=== PATIENT | female | born 1965 | race Caucasian/White ===

== ENCOUNTER 2018-10-08 21:34 | Emergency (ER) | payer BC ==
--- NOTE | 2018-10-08 22:32 | EDM.PDOC ---
ED HPI GENERAL MEDICAL PROBLEM - General Chief Complaint: Chest Pain Stated Complaint: REACTION TO MEDS Time Seen by Provider: 10/08/18 22:05 Source of Information: Reports: Patient, EMS, Family History Limitations: Reports: No Limitations - History of Present Illness INITIAL COMMENTS - FREE TEXT/NARRATIVE: 53-year-old female with metastatic ovarian cancer, was receiving chemotherapy today when she had some type of reaction with bilateral arm pain, shortness of breath, and weakness. She seemed to respond to Benadryl. Tonight after she got home she redeveloped left arm pain and some slight chest pressure, with slight shortness of breath. The symptoms were just over 3 hours ago. She repeated the Benadryl and it didn't seem to help so she called the ambulance. In route they gave her 3 nitroglycerin which didn't help. She had some nausea so they gave her 4 mg of Zofran IV, and not till she received IV Dilaudid and the pain started to improve. She feels like it hurts to move her arm but I cannot reproduce the pain. A preoperative stress test was negative last year. She has no history of cardiac problems. Onset: Sudden Duration: Hour(s): (Within the last few hours) Location: Reports: Upper Extremity, Left Quality: Reports: Ache, Pressure, Throbbing Worsens with: Reports: Movement Associated Symptoms: Reports: Chest Pain, Nausea/Vomiting, Shortness of Breath. 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 GROUP SUPERVISOR: Reports: Nitroglycerin, Other (see below) Other Treatments INTELLIGENCE GROUP SUPERVISOR: zofran dilaudid Left Shoulder Pain Score (Numeric/FACES): 3 - Related Data Allergies Allergy/AdvReac Type Severity Reaction Status Date / Time codeine AdvReac Nausea Verified 10/08/18 21:49 Home Meds: Home Meds Biotin 2.5 mg PO BID 07/17/13 [History] Calcium Citrate 250 mg PO DAILY 07/17/13 [History] Cyanocobalamin (Vitamin B-12) [Vitamin B-12] 1,000 mcg SL DAILY 07/17/13 [ History] Multivitamin with Minerals [Multiple Vitamin] 1 tab PO BID 07/17/13 [History] Vitamin B Complex [B Complex] 1 each PO DAILY 07/17/13 [History] clonazePAM [Clonazepam] 1.5 - 2 mg PO BEDTIME 07/17/13 [History] Acetaminophen [Acetaminophen Extra Strength] 1,000 mg PO BEDTIME 06/10/14 [ History] traMADol [Ultram] 50 mg PO Q6H PRN 06/10/14 [History] Ferrous Fumarate [Ferrocite] 324 mg PO DAILY 02/27/17 [History] Gabapentin [Neurontin] 300 mg PO BEDTIME 10/08/18 [History] Ondansetron [Zofran ODT] 4 mg PO Q6H PRN 10/08/18 [History] Prochlorperazine [Compazine] 5 mg PO Q6H 10/08/18 [History] oxyCODONE 5 mg PO Q4HR 10/08/18 [History] Past Medical History Cardiovascular History: Reports: Other (See Below) Other Cardiovascular History: stress test December 2017 Gastrointestinal History: Reports: Cholelithiasis Genitourinary History: Reports: UTI, Recurrent 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: Musculoskeletal History: Reports: Arthritis, Fracture Neurological History: Reports: Concussion Psychiatric History: Reports: Depression Hematologic History: Reports: Anemia, B12 Deficiency, Blood Transfusion(s), Iron Deficiency Oncologic (Cancer) History: Reports: Ovarian, Other (See Below) Other Oncologic History: 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 13 lb tumor removed Musculoskeletal Surgical History: Reports: Hip Replacement, Knee Replacement Other Musculoskeletal Surgeries/Procedures:: left hip. right knee Other Oncologic Surgeries/Procedures: latricia Social & Family History - Tobacco Use Smoking Status *Q: Never Smoker - Caffeine Use Caffeine Use: Reports: Soda - Recreational Drug Use Recreational Drug Use: No ED ROS GENERAL - Review of Systems Review Of Systems: See Below Constitutional: Reports: Malaise. Denies: Fever, Chills HEENT: Reports: No Symptoms Respiratory: Reports: Shortness of Breath. Denies: Cough Cardiovascular: Reports: Chest Pain GI/Abdominal: Reports: Abdominal Pain, Nausea. Denies: Vomiting Skin: Reports: Pallor Neurological: Denies: Headache ED EXAM, GENERAL - Physical Exam Exam: See Below Exam Limited By: No Limitations General Appearance: Alert, No Apparent Distress Eye Exam: Bilateral Eye: Other (EOMs intact, pale conjunctiva) Throat/Mouth: Normal Inspection Head: Atraumatic Respiratory/Chest: No Respiratory Distress, Lungs Clear Cardiovascular: Regular Rate, Rhythm GI/Abdominal: Soft, Tender (Patient has diffuse tenderness to palpation, some distention and likely ascites) Extremities: No: Pedal Edema Neurological: Alert, Oriented Psychiatric: Normal Affect, Normal Mood Skin Exam: Warm, Dry, Pallor Course - Vital Signs Last Recorded V/S: Last Vital Signs Temp 97.6 F 10/08/18 21:39 Pulse 86 10/08/18 22:33 Resp 16 10/08/18 22:33 BP 142/81 H 10/08/18 22:33 Pulse Ox 96 10/08/18 22:33 - Orders/Labs/Meds Labs: Laboratory Tests 10/08/18 10/08/18 Range/Units 22:48 22:48 WBC 4.6 (4.5-11.0) K/uL RBC 3.72 (3.30-5.50) M/uL Hgb 9.0 L (12.0-15.0) g/dL Hct 29.8 L (36.0-48.0) % MCV 80 (80-98) fL MCH 24 L (27-31) pg MCHC 30 L (32-36) % Plt Count 340 (150-400) K/uL Neut % (Auto) 90 H (36-66) % Lymph % (Auto) 9 L (24-44) % Pratt % (Auto) 1 L (2-6) % Eos % (Auto) 0 L (2-4) % Baso % (Auto) 0 (0-1) % Sodium 138 L (140-148) mmol/L Potassium 3.4 L (3.6-5.2) mmol/L Chloride 100 (100-108) mmol/L Carbon Dioxide 24 (21-32) mmol/L Anion Gap 17.4 H (5.0-14.0) mmol/L BUN 11 (7-18) mg/dL Creatinine 0.8 (0.6-1.0) mg/dL Est Cr Clr Drug Dosing 63.58 mL/min Estimated GFR (MDRD) > 60 (>60) Glucose 139 H (74-106) mg/dL Calcium 8.6 (8.5-10.1) mg/dL Troponin I 0.032 (0.000-0.056) ng/mL - Re-Assessments/Exams Free Text/Narrative Re-Assessment/Exam: 10/08/18 22:30 EKG was reviewed from EMS, showed no acute findings. Troponin and CBC were obtained, as well as a two-view chest x-ray. 10/08/18 23:23 CBC was consistent with earlier levels. Troponin was within normal range at 0.03. She had no further pain while in the emergency room. Discussed rechecking the troponin in 4 hours with admission, her staying in the emergency room, or returning in the morning. She did not want to be admitted, if she develops any more arm pain overnight show return tomorrow for another troponin. Departure - Departure Time of Disposition: 23:29 Disposition: Home, Self-Care 01 Condition: Fair Clinical Impression: Arm pain, left Metastatic malignant neoplasm to ovary Qualifiers: Laterality: unspecified laterality Qualified Code(s): C79.60 - Secondary malignant neoplasm of unspecified ovary - Discharge Information Instructions: Neuropathic Pain Referrals: Sandor Marquez MD [Primary Care Provider] - Forms: ED Department Discharge Care Plan Goals: Continue your current medications. If symptoms are persistent or recurring such as shortness of breath or arm pain, consider rechecking troponin tomorrow morning.
[2018-10-08 22:33] VITALS: BP 142/81
--- NOTE | 2018-10-08 22:53 | CRLCR ---
INDICATION: Dyspnea TECHNIQUE: Chest radiograph 2 views COMPARISON: None FINDINGS: Mediastinum: The mediastinum is normal in appearance. The heart silhouette is normal in size and morphology. Right Port-A-Cath noted with the tip in SVC. Lung: Small lung volumes are present with mild bibasilar atelectasis. No sign of pleural effusion seen. No pneumothorax is identified. Musculoskeletal: Unremarkable for age. IMPRESSION: 1. Small lung volumes are present with mild bibasilar atelectasis. Dictated by Saurav Prabhakar MD @ 10/08/2018 10:50:33 PM Dictated by: Saurav Prabhakar MD @ 10/08/2018 22:50:36 (Electronically Signed)
== END 2018-10-08 23:33 | disposition home or self-care (01) ==
LOC: JP.ED 21:34
DX: M79.602 Pain in left arm (principal); C79.60 Secondary malignant neoplasm of unspecified ovary; F32.9 Major depressive disorder, single episode, unspecified; Z79.899 Other long term (current) drug therapy; Z88.5 Allergy status to narcotic agent
CPT/HCPCS: 36415; 71046; 80048; 84484; 85025; 99285-25

== ENCOUNTER 2019-02-04 16:10 | Emergency (ER) | payer BC ==
[2019-02-04 16:14] VITALS: BP 108/84
[2019-02-04] MEDS ORDERED: HYDROmorphone 1 MG/ML Syringe IVPUSH ONE (16:24)
--- NOTE | 2019-02-04 17:20 | EDM.PDOC ---
ED HPI GENERAL MEDICAL PROBLEM - General Chief Complaint: Lower Extremity Injury/Pain Stated Complaint: MEDICAL [facility] Time Seen by Provider: 02/04/19 16:23 Source of Information: Reports: Patient History Limitations: Reports: No Limitations - History of Present Illness INITIAL COMMENTS - FREE TEXT/NARRATIVE: This patient is a oh very and cancer patient she's on chemotherapy. 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 Tonight she was walking up some steps and she felt herself start to fall. As she tried to prevent the fall she sort of twisted and caused the left hip to pop out of socket. In route to the hospital she got 100 mg of fentanyl and 1 mg of Dilaudid. She's still complaining of pretty severe pain. This patient is chronically on opiates due to her ovarian cancer. Left Hip Pain Score (Numeric/FACES): 10 - Related Data Allergies Allergy/AdvReac Type Severity Reaction Status Date / Time codeine AdvReac Nausea Verified 01/10/19 09:00 Home Meds: Home Meds Biotin 2.5 mg PO BID 07/17/13 [History] Calcium Citrate 250 mg PO DAILY 07/17/13 [History] Cyanocobalamin (Vitamin B-12) [Vitamin B-12] 1,000 mcg SL DAILY 07/17/13 [ History] Multivitamin with Minerals [Multiple Vitamin] 1 tab PO BID 07/17/13 [History] Vitamin B Complex [B Complex] 1 each PO DAILY 07/17/13 [History] clonazePAM [Clonazepam] 1.5 - 2 mg PO BEDTIME 07/17/13 [History] Acetaminophen [Acetaminophen Extra Strength] 1,000 mg PO BEDTIME PRN 06/10/14 [ History] traMADol [Ultram] 50 mg PO Q6H PRN 06/10/14 [History] Ferrous Fumarate [Ferrocite] 324 mg PO DAILY 02/27/17 [History] Gabapentin [Neurontin] 300 mg PO BEDTIME 10/08/18 [History] Ondansetron [Zofran ODT] 4 mg PO Q6H PRN 10/08/18 [History] Prochlorperazine [Compazine] 5 mg PO Q6H PRN 10/08/18 [History] oxyCODONE 5 mg PO Q4HR PRN 10/08/18 [History] Past Medical History Cardiovascular History: Reports: Other (See Below) Other Cardiovascular History: stress test December 2017 Gastrointestinal History: Reports: Cholelithiasis Genitourinary History: Reports: UTI, Recurrent 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: Musculoskeletal History: Reports: Arthritis, Fracture Neurological History: Reports: Concussion Psychiatric History: Reports: Depression Other Psychiatric History: Adjustment disorder Hematologic History: Reports: Anemia, B12 Deficiency, Blood Transfusion(s), Iron Deficiency Oncologic (Cancer) History: Reports: Ovarian, Other (See Below) 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 13 lb tumor removed Musculoskeletal Surgical History: Reports: Hip Replacement, Knee Replacement Other Musculoskeletal Surgeries/Procedures:: left hip. right knee Other Oncologic Surgeries/Procedures: latricia Social & Family History - Tobacco Use Smoking Status *Q: Never Smoker - Caffeine Use Caffeine Use: Reports: Coffee, Soda, Tea - Recreational Drug Use Recreational Drug Use: No Review of Systems - Review of Systems Review Of Systems: ROS reveals no pertinent complaints other than HPI. ED EXAM, GENERAL - Physical Exam Exam: See Below Exam Limited By: No Limitations General Appearance: Alert, Mild Distress, Thin (Very pale) Eye Exam: Bilateral Eye: Normal Inspection Cardiovascular: Regular Rate, Rhythm Extremities: Other (Left leg is shortened and internally rotated) Neurological: Alert, Oriented, CN II-XII Intact, Normal Cognition Course - Vital Signs Last Recorded V/S: Last Vital Signs Temp 37.1 C 02/04/19 16:13 Pulse 97 02/04/19 16:13 Resp 16 02/04/19 16:13 BP 108/84 02/04/19 16:13 Pulse Ox 97 02/04/19 16:13 - Orders/Labs/Meds Orders: Active Orders 24 hr Category Date Time Status Hip Min 1V Lt [CR] Stat Exams 02/04/19 17:29 Taken Meds: Medications Discontinued Medications Generic Name Dose Route Start Last Admin Trade Name Freq PRN Reason Stop Dose Admin Hydromorphone HCl 1 mg 02/04/19 16:24 02/04/19 16:38 Dilaudid IVPUSH 02/04/19 16:25 1 mg ONETIME ONE Administration Propofol Confirm 02/04/19 17:39 Diprivan 20 Ml Administered 02/04/19 17:40 Dose 200 mg .ROUTE .STK-MED ONE - Radiology Interpretation Free Text/Narrative:: This lady appears to have a dislocated prosthetic hip - Re-Assessments/Exams Free Text/Narrative Re-Assessment/Exam: 02/04/19 17:[address] Heredia and he will be in shortly to reduce the dislocated hip Free Text/Narrative Re-Assessment/Exam: 02/04/19 18:11 patient was seen by Dr. Heredia who performed a left hip reduction under anesthesia. Patient feels great now and feels like she is ready to go home Departure - Departure Time of Disposition: 18:12 Disposition: Home, Self-Care 01 Condition: Fair Clinical Impression: Dislocation of hip joint prosthesis - Discharge Information Referrals: PCP,None [Primary Care Provider] - Forms: ED Department Discharge Additional Instructions: You may return to normal activities as discussed with Dr. Heredia - My Orders Last 24 Hours: My Active Orders 02/04/19 17:29 Hip Min 1V Lt [CR] Stat - Assessment/Plan Last 24 Hours: My Active Orders 02/04/19 17:29 Hip Min 1V Lt [CR] Stat
--- NOTE | 2019-02-04 17:23 | CRLCR ---
INDICATION: Left hip pain after fall. COMPARISON: None available. FINDINGS: The left hip was examined with a cross-table lateral view. An AP view of the pelvis is obtained for a total of 2 views. There is superior and posterior dislocation of the femoral head component of the left total hip prosthesis. There is no sign of fracture or loosening of the orthopedic hardware. The right hip is unremarkable. There is mild sclerosis of both sacroiliac joints from mild primary osteoarthritis. The pubic symphysis and the rest of the bony pelvis is intact. The bowel gas pattern is unremarkable. IMPRESSION: Superior and posterior dislocation of the femoral head component of the left total hip prosthesis. Dictated by Gerald Kitchen MD @ Feb 04 2019 5:19PM Signed by Dr. Gerald Kitchen @ Feb 04 2019 5:21PM
[2019-02-04] MEDS ORDERED: Propofol 200 MG/20 ML SDV ONE (17:39)
--- NOTE | 2019-02-04 18:24 | CRLCR ---
Indication: Left hip dislocation post reduction Technique: Left hip 1 views Comparison: February 04, 2019 Findings/Impression: The dislocation has been successfully reduced. Alignment of the arthroplasty components is now normal. No fracture or other new abnormality. Dictated by Robbie Flores MD @ Feb 04 2019 6:22PM Signed by Dr. Robbie Flores @ Feb 04 2019 6:23PM
--- NOTE | 2019-02-28 15:48 | OR ---
DATE OF PROCEDURE: 02/04/2019 PREOPERATIVE DIAGNOSIS: Dislocation, left total hip. POSTOPERATIVE DIAGNOSIS: Dislocation, left total hip. PROCEDURE PERFORMED: Closed reduction of left hip. ANESTHESIA: Conscious sedation in the emergency department. HISTORY: Mayuri is a 53-year-old female with a history of left total hip arthroplasty, who has had problems with multiple dislocations. She is a cancer patient, on chemotherapy, and is very deconditioned. She reports that she was walking up some steps when she felt as though she was going to fall and catching herself, twisted the hip and dislocated. She presents to the emergency department with the left hip shorter and unable to weightbear. X- ray confirms dislocation. Planned closed reduction under sedation provided by Anesthesia Department. Risks, benefits, potential complications of procedure were discussed. DESCRIPTION OF PROCEDURE: After adequate anesthesia was obtained with the sedation, the patient was supine on the gurney in the emergency department. Gentle longitudinal traction was placed on the leg with a slight internal rotation maneuver. Additional traction then placed with external rotation maneuver resulting in relocation of the femoral head within the acetabulum. This resulted in the equal limb lengths. Post reduction x-ray was obtained, which confirmed reduction. The patient tolerated the procedure very well. There were no complications. She was discharged to home from the emergency room. Approximately 12 minutes was spent with the patient in the emergency department and sedation. Alex Gallardo MD /[id number]
== END 2019-02-04 18:34 | disposition home or self-care (01) ==
LOC: JP.ED 16:10
DX: T84.021A Dislocation of internal left hip prosthesis, initial encounter (principal); D64.9 Anemia, unspecified; C56.9 Malignant neoplasm of unspecified ovary; Z79.899 Other long term (current) drug therapy; Z90.49 Acquired absence of other specified parts of digestive tract; Z98.84 Bariatric surgery status; Z90.710 Acquired absence of both cervix and uterus; W10.9XXA Fall (on) (from) unspecified stairs and steps, initial encounter
CPT/HCPCS: 27265; 73501-LT; 73502-LT; 96374; 99152; 99283-25; J1170; J1642; J2704

== ENCOUNTER 2019-03-04 13:18 | Emergency (ER) | payer BC ==
--- NOTE | 2019-03-04 13:29 | EDM.PDOC ---
ED HPI GENERAL MEDICAL PROBLEM - General Chief Complaint: Lower Extremity Injury/Pain Stated Complaint: LEFT HIP VIA NORTH Time Seen by Provider: 03/04/19 13:20 Source of Information: Reports: Patient, EMS, Old Records History Limitations: Reports: No Limitations - History of Present Illness INITIAL COMMENTS - FREE TEXT/NARRATIVE: 53 yo female here via EMS with a L hip dislocation that occurred when she bent over. Was here about a month ago for the same. Has a port for her chemo as tx for her CA. EMS gave fentanyl intranasally en route with some relief. Last ate or drank at midnight last night. Has been having trouble with low hgb and low potassium. Has had intermittent transfusions since she's been on chemo. Is on oral potassium supplementation currently. Dr. Marquez is her primary. Onset: Today Onset Date: 03/04/19 Onset Time: 12:45 Duration: Minutes: Location: Reports: Lower Extremity, Left Quality: Reports: Ache Severity: Moderate Improves with: Reports: Rest Worsens with: Reports: Movement Context: Reports: Trauma Associated Symptoms: Reports: No Other Symptoms Treatments [employer] L[employer] TE[employer]ER: Reports: Other (see below) (intranasal fentanyl per EMS) Left Hip Pain Score (Numeric/FACES): 9 - Related Data Allergies Allergy/AdvReac Type Severity Reaction Status Date / Time codeine AdvReac Nausea Verified 03/04/19 13:33 Home Meds: Home Meds Biotin 2.5 mg PO BID 07/17/13 [History] Calcium Citrate 250 mg PO DAILY 07/17/13 [History] Cyanocobalamin (Vitamin B-12) [Vitamin B-12] 1,000 mcg SL DAILY 07/17/13 [ History] Multivitamin with Minerals [Multiple Vitamin] 1 tab PO BID 07/17/13 [History] Vitamin B Complex [B Complex] 1 each PO DAILY 07/17/13 [History] clonazePAM [Clonazepam] 1.5 - 2 mg PO BEDTIME 07/17/13 [History] Acetaminophen [Acetaminophen Extra Strength] 1,000 mg PO BEDTIME PRN 06/10/14 [ History] traMADol [Ultram] 50 mg PO Q6H PRN 06/10/14 [History] Ferrous Fumarate [Ferrocite] 324 mg PO DAILY 02/27/17 [History] Gabapentin [Neurontin] 300 mg PO BEDTIME 10/08/18 [History] Ondansetron [Zofran ODT] 4 mg PO Q6H PRN 10/08/18 [History] Prochlorperazine [Compazine] 5 mg PO Q6H PRN 10/08/18 [History] oxyCODONE 5 mg PO Q4HR PRN 10/08/18 [History] Magnesium Oxide [Magnesium] 400 mg PO DAILY #14 capsule 03/04/19 [Rx] Past Medical History Cardiovascular History: Reports: Other (See Below) Other Cardiovascular History: stress test December 2017 Gastrointestinal History: Reports: Cholelithiasis Genitourinary History: Reports: UTI, Recurrent [employer]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: Musculoskeletal History: Reports: Arthritis, Fracture Neurological History: Reports: Concussion Psychiatric History: Reports: Depression Other Psychiatric History: Adjustment disorder Hematologic History: Reports: Anemia, B12 Deficiency, Blood Transfusion(s), Iron Deficiency Oncologic (Cancer) History: Reports: Ovarian, Other (See Below) 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 13 lb tumor removed Musculoskeletal Surgical History: Reports: Hip Replacement, Knee Replacement Other Musculoskeletal Surgeries/Procedures:: left hip. right knee Other Oncologic Surgeries/Procedures: latricia Social & Family History - Caffeine Use Caffeine Use: Reports: Coffee, Soda, Tea Review of Systems - Review of Systems Review Of Systems: See Below Constitutional: Reports: No Symptoms Eyes: Reports: No Symptoms Musculoskeletal: Reports: Joint Pain (L hip dislocated) Skin: Reports: No Symptoms Neurological: Reports: No Symptoms ED EXAM, GENERAL - Physical Exam Exam: See Below Exam Limited By: No Limitations General Appearance: Alert, WD/WN, No Apparent Distress Eye Exam: Bilateral Eye: Other (conjunctival pallor) Ears: Normal External Exam, Normal Canal, Hearing Grossly Normal Ear Exam: Bilateral Ear: Auricle Normal, Canal Normal Nose: Normal Inspection, No Blood Throat/Mouth: Normal Inspection, Normal Lips, Normal Voice, No Airway Compromise Head: Atraumatic, Normocephalic Neck: Normal Inspection Respiratory/Chest: No Respiratory Distress, Lungs Clear, Normal Breath Sounds, No Accessory Muscle Use Cardiovascular: Regular Rate, Rhythm, No Edema GI/Abdominal: Normal Bowel Sounds, Soft, Non-Tender, No Distention Back Exam: Normal Inspection Extremities: No Pedal Edema, Other (L hip with visible deformity) Neurological: Alert, Oriented, CN II-XII Intact, Normal Cognition, No Motor/ Sensory Deficits Psychiatric: Normal Affect, Normal Mood Skin Exam: Warm, Dry, Intact, Normal Color, No Rash, Pallor Course - Vital Signs Text/Narrative:: Anesthesia called for sedation for hip reduction. Hip easily reduced with traction internal rotation. Discussed case with Dr. More @ 1440h Last Recorded V/S: Last Vital Signs Temp 35.9 C 03/04/19 13:52 Pulse 79 03/04/19 15:31 Resp 16 03/04/19 13:52 BP 123/79 03/04/19 15:31 Pulse Ox 98 03/04/19 13:52 - Orders/Labs/Meds Orders: Active Orders 24 hr Category Date Time Status Heparin Sodium [Heparin Lock Flush 100 Units/ML] Med 03/04/19 16:26 Active 500 units FLUSH ASDIRECTED PRN Magnesium Sulfate/Water [Magnesium Sulfate in Water Med 03/04/19 14:35 Active Premix] 2 gm Premix Bag 1 bag IV ONETIME Sodium Chloride 0.9% [Normal Saline] 1,000 ml Med 03/04/19 13:30 Active IV ASDIRECTED Medication Orders Heparin Sodium (Porcine) (Heparin Lock Flush 100 Units/Ml) 500 units FLUSH ASDIRECTED PRN PRN Reason: IV Use Sodium Chloride (Normal Saline) 1,000 mls @ 150 mls/hr IV ASDIRECTED [facility] Last Admin: 03/04/19 13:45 Dose: 150 mls/hr Magnesium Sulfate 2 gm/ Premix 50 mls @ 12.5 mls/hr IV ONETIME ONE Stop: 03/04/19 18:34 Last Admin: 03/04/19 15:09 Dose: 12.5 mls/hr Labs: Laboratory Tests 03/04/19 03/04/19 03/04/19 Range/Units 13:32 13:57 14:25 WBC 4.1 L (4.5-11.0) K/uL RBC 2.42 L (3.30-5.50) M/uL Hgb 7.6 L (12.0-15.0) g/dL Hct 24.1 L (36.0-48.0) % MCV 100 H (80-98) fL MCH 31 (27-31) pg MCHC 32 (32-36) % Plt Count 171 (150-400) K/uL Potassium 3.0 L (3.6-5.2) mmol/L Magnesium 0.9 L (1.8-2.4) mg/dL Meds: Medications Generic Name Dose Route Start Last Admin Trade Name Harry PRN Reason Stop Dose Admin Heparin Sodium (Porcine) 500 units 03/04/19 16:26 Heparin Lock Flush 100 Units/Ml FLUSH ASDIRECTED PRN IV Use Sodium Chloride 1,000 mls @ 150 mls/hr 03/04/19 13:30 03/04/19 13:45 Normal Saline IV 150 mls/hr ASDIRECTED AMRIK Administration Magnesium Sulfate 2 gm/ Premix 50 mls @ 12.5 mls/hr 03/04/19 14:35 03/04/19 15:09 IV 03/04/19 18:34 12.5 mls/hr ONETIME ONE Administration Discontinued Medications Generic Name Dose Route Start Last Admin Trade Name Oswaldq PRN Reason Stop Dose Admin Hydromorphone HCl 0.5 mg 03/04/19 13:40 03/04/19 13:48 Dilaudid IVPUSH 03/04/19 13:41 0.5 mg ONETIME ONE Administration Hydromorphone HCl 0.5 mg 03/04/19 14:07 Dilaudid IVPUSH 03/04/19 14:08 ONETIME ONE Potassium Chloride 20 meq/ 100 mls @ 50 mls/hr 03/04/19 14:19 03/04/19 14:31 Premix IV 03/04/19 16:18 50 mls/hr ONETIME ONE Administration Magnesium Oxide 400 mg 03/04/19 14:35 03/04/19 15:17 Magnesium Oxide PO 03/04/19 14:36 400 mg ONETIME ONE Administration Magnesium Oxide 400 mg 03/04/19 14:41 03/04/19 15:17 Magnesium Oxide PO 03/04/19 14:42 400 mg ONETIME ONE Administration Potassium Chloride 20 meq 03/04/19 14:36 03/04/19 15:15 Potassium Chloride PO 03/04/19 14:37 20 meq ONETIME ONE Administration Potassium Chloride 20 meq 03/04/19 14:41 03/04/19 15:14 Potassium Chloride PO 03/04/19 14:42 20 meq ONETIME ONE Administration Propofol Confirm 03/04/19 14:51 Diprivan 20 Ml Administered 03/04/19 14:52 Dose 200 mg .ROUTE .STK-MED ONE - Radiology Interpretation Free Text/Narrative:: pelvis X-ray-L hip dislocated Departure - Departure Time of Disposition: 17:30 Disposition: Home, Self-Care 01 Clinical Impression: Hypokalemia, Hypomagnesemia Hip dislocation, left Qualifiers: Encounter type: subsequent encounter Qualified Code(s): S73.005D - Unspecified dislocation of left hip, subsequent encounter Anemia Qualifiers: Anemia type: other cause Other causes of anemia: antineoplastic chemotherapy Qualified Code(s): D64.81 - Anemia due to antineoplastic chemotherapy; T45.1X5A - Adverse effect of antineoplastic and immunosuppressive drugs, initial encounter - Discharge Information *PRESCRIPTION DRUG MONITORING PROGRAM REVIEWED*: No *COPY OF PRESCRIPTION DRUG MONITORING REPORT IN PATIENT KAYLEN: No Instructions: Hypomagnesemia, Hypokalemia Referrals: PCP,None [Primary Care Provider] - Forms: ED Department Discharge Additional Instructions: Continue your potassium supplementation. Take magnesium 400 mg daily. F/U tomorrow with infusion therapy. Return here as needed. - My Orders Last 24 Hours: My Active Orders 03/04/19 13:30 Sodium Chloride 0.9% [Normal Saline] 1,000 ml IV ASDIRECTED 03/04/19 14:35 Magnesium Sulfate/Water [Magnesium Sulfate in Water Premix] 2 gm Premix Bag 1 bag IV ONETIME 03/04/19 16:26 Heparin Sodium [Heparin Lock Flush 100 Units/ML] 500 units FLUSH ASDIRECTED PRN - Assessment/Plan Last 24 Hours: My Active Orders 03/04/19 13:30 Sodium Chloride 0.9% [Normal Saline] 1,000 ml IV ASDIRECTED 03/04/19 14:35 Magnesium Sulfate/Water [Magnesium Sulfate in Water Premix] 2 gm Premix Bag 1 bag IV ONETIME 03/04/19 16:26 Heparin Sodium [Heparin Lock Flush 100 Units/ML] 500 units FLUSH ASDIRECTED PRN
[2019-03-04] MEDS ORDERED: Sodium Chloride 0.9% 1,000 ML IV SCH (13:30)
[2019-03-04] MEDS ORDERED: HYDROmorphone 0.5 MG/0.5 ML Syringe IVPUSH ONE ×2 (13:40→14:07)
[2019-03-04] MEDS ORDERED: Potassium Chloride 20 MEQ in Premix Bag 1 BAG IV ONE (14:19)
[2019-03-04] MEDS ORDERED: Magnesium Oxide 400 MG Tab PO ONE ×2 (14:35→14:41)
[2019-03-04] MEDS ORDERED: Magnesium Sulfate/Water 2 GM in Premix Bag 1 BAG IV ONE (14:35)
[2019-03-04] MEDS ORDERED: Potassium Chloride 10 MEQ Cap.ER PO ONE ×2 (14:36→14:41)
--- NOTE | 2019-03-04 14:43 | CRLCR ---
HISTORY: Left hip dislocation. TECHNIQUE: Frontal view the pelvis. COMPARISON: Radiographs 02/04/2019. FINDINGS: Left total hip arthroplasty. Superior dislocation of the left hip. No fracture. Mild degenerative arthrosis the right hip. Pubic symphysis is maintained. Mild degenerative arthrosis of sacroiliac joints. Surgical staple lines in the lower abdomen with adjacent surgical clips. IMPRESSION: Dislocation of left hip arthroplasty. Dictated by Maykel Ibrahim MD @ Mar 04 2019 2:39PM Signed by Dr. Maykel Ibrahim @ Mar 04 2019 2:42PM
[2019-03-04] MEDS ORDERED: Propofol 200 MG/20 ML SDV ONE (14:51)
[2019-03-04 17:56] VITALS: BP 113/82
== END 2019-03-04 18:00 | disposition home or self-care (01) ==
LOC: JP.ED 13:18
DX: T84.021A Dislocation of internal left hip prosthesis, initial encounter (principal); D64.81 Anemia due to antineoplastic chemotherapy; C56.9 Malignant neoplasm of unspecified ovary; T45.1X5A Adverse effect of antineoplastic and immunosuppressive drugs, initial encounter; E83.42 Hypomagnesemia; E87.6 Hypokalemia; X50.1XXA Overexertion from prolonged static or awkward postures, initial encounter
CPT/HCPCS: 27265; 36415; 72170; 83735; 84132; 85027; 96365; 96366; 96368; 96375; 99152; 99284-25; A9270-GY; J1170; J1642; J2704; J3475; J3480; J7030

== ENCOUNTER 2019-03-24 08:39 | Emergency (ER) | payer SELFPAY ==
[2019-03-24] MEDS ORDERED: HYDROmorphone 1 MG/ML Syringe IVPUSH ONE (08:40)
[2019-03-24] MEDS ORDERED: Sodium Chloride 0.9% 10 ML Syringe FLUSH PRN (08:43)
[2019-03-24] MEDS ORDERED: Sodium Chloride 0.9% 1,000 ML IV SCH (08:45)
[2019-03-24] MEDS ORDERED: Propofol 200 MG/20 ML SDV ONE (08:47)
--- NOTE | 2019-03-24 08:59 | EDM.PDOC ---
ED HPI GENERAL MEDICAL PROBLEM - General Chief Complaint: Lower Extremity Injury/Pain Stated Complaint: MEDICAL VIA NORTH Time Seen by Provider: 03/24/19 08:57 Source of Information: Reports: Patient, EMS, Old Records, RN Notes Reviewed History Limitations: Reports: No Limitations - History of Present Illness INITIAL COMMENTS - FREE TEXT/NARRATIVE: 53-year-old female presents emergency department today complaint of left hip pain, she has a history of chronic hip location as well as ovarian CA currently undergoing chemotherapy. The last event was March 04. For this particular event she states she was just going to sit down in a chair her to pop sudden pain left Left Hip Pain Score (Numeric/FACES): 10 - Related Data Allergies Allergy/AdvReac Type Severity Reaction Status Date / Time codeine AdvReac Nausea Verified 03/24/19 08:40 Home Meds: Home Meds Biotin 2.5 mg PO BID 07/17/13 [History] Calcium Citrate 250 mg PO DAILY 07/17/13 [History] Cyanocobalamin (Vitamin B-12) [Vitamin B-12] 1,000 mcg SL DAILY 07/17/13 [ History] Multivitamin with Minerals [Multiple Vitamin] 1 tab PO BID 07/17/13 [History] Vitamin B Complex [B Complex] 1 each PO DAILY 07/17/13 [History] clonazePAM [Clonazepam] 1.5 - 2 mg PO BEDTIME 07/17/13 [History] Acetaminophen [Acetaminophen Extra Strength] 1,000 mg PO BEDTIME PRN 06/10/14 [ History] traMADol [Ultram] 50 mg PO Q6H PRN 06/10/14 [History] Ferrous Fumarate [Ferrocite] 324 mg PO DAILY 02/27/17 [History] Gabapentin [Neurontin] 300 mg PO BEDTIME 10/08/18 [History] Ondansetron [Zofran ODT] 4 mg PO Q6H PRN 10/08/18 [History] Prochlorperazine [Compazine] 5 mg PO Q6H PRN 10/08/18 [History] oxyCODONE 5 mg PO Q4HR PRN 10/08/18 [History] Magnesium Oxide [Magnesium] 400 mg PO DAILY #14 capsule 03/04/19 [Rx] Past Medical History Cardiovascular History: Reports: Other (See Below) Other Cardiovascular History: stress test December 2017 Gastrointestinal History: Reports: Cholelithiasis Genitourinary History: Reports: UTI, 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: Musculoskeletal History: Reports: Arthritis, Fracture Neurological History: Reports: Concussion Psychiatric History: Reports: Depression Other Psychiatric History: Adjustment disorder Hematologic History: Reports: Anemia, B12 Deficiency, Blood Transfusion(s), Iron Deficiency Oncologic (Cancer) History: Reports: Ovarian, Other (See Below) 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 13 lb tumor removed Musculoskeletal Surgical History: Reports: Hip Replacement, Knee Replacement Other Musculoskeletal Surgeries/Procedures:: left hip. right knee Other Oncologic Surgeries/Procedures: latricia Social & Family History - Caffeine Use Caffeine Use: Reports: Coffee, Soda, Tea Review of Systems - Review of Systems Review Of Systems: See Below Constitutional: Reports: No Symptoms Musculoskeletal: Reports: Joint Pain (Left hip) ED EXAM, GENERAL - Physical Exam Exam: See Below Free Text/Narrative:: Will not tolerate a type of exam with palpation or movement to the left hip Exam Limited By: No Limitations General Appearance: Alert, Mild Distress ED TRAUMA EXTREMITY PROCEDURES - Joint Reduction Site: Hip (L) Sedation: Conscious Sedation Local Anesthesia - Lidocaine (Xylocaine): Other (Conscious sedation performed by anesthesia please see notes for details) Pre-Procedure NV Status: Normal Post-Procedure NV Status: Normal Technique: Traction/Counter Traction (Capt. Lockwood technique) Number of Attempts: 1 Post-Reduction Imaging: Completely Reduced Joint Reduction Complications: No Course - Vital Signs Last Recorded V/S: Last Vital Signs Temp 97.5 F 03/24/19 08:56 Pulse 90 03/24/19 08:56 Resp 22 H 03/24/19 08:56 BP 142/93 H 03/24/19 08:56 Pulse Ox 100 03/24/19 08:56 - Orders/Labs/Meds Orders: Active Orders 24 hr Category Date Time Status Peripheral IV Care [RC] . DIRECTED Care 03/24/19 08:43 Active Hip Min 1V Lt [CR] Stat Exams 03/24/19 08:43 Taken Hip Min 1V Lt [CR] Stat Exams 03/24/19 09:15 Taken Sodium Chloride 0.9% [Normal Saline] 1,000 ml Med 03/24/19 08:45 Active IV ASDIRECTED Sodium Chloride 0.9% [Saline Flush] Med 03/24/19 08:43 Active 10 ml FLUSH ASDIRECTED PRN DME for Discharge [COMM] Per Unit Routine Oth 03/24/19 09:30 Ordered Peripheral IV Insertion Adult [OM.PC] Urgent Oth 03/24/19 08:40 Ordered Medication Orders Sodium Chloride (Normal Saline) 1,000 mls @ 125 mls/hr IV ASDIRECTED AMRIK Last Admin: 03/24/19 09:25 Dose: 125 mls/hr Sodium Chloride (Saline Flush) 10 ml FLUSH ASDIRECTED PRN PRN Reason: Keep Vein Open Last Admin: 03/24/19 09:26 Dose: 10 ml Meds: Medications Generic Name Dose Route Start Last Admin Trade Name Freq PRN Reason Stop Dose Admin Sodium Chloride 1,000 mls @ 125 mls/hr 03/24/19 08:45 03/24/19 09:25 Normal Saline IV 125 mls/hr ASDIRECTED AMRIK Administration Sodium Chloride 10 ml 03/24/19 08:43 03/24/19 09:26 Saline Flush FLUSH 10 ml ASDIRECTED PRN Administration Keep Vein Open Discontinued Medications Generic Name Dose Route Start Last Admin Trade Name Freq PRN Reason Stop Dose Admin Hydromorphone HCl 1 mg 03/24/19 08:40 03/24/19 08:54 Dilaudid IVPUSH 03/24/19 08:41 1 mg ONETIME ONE Administration Propofol Confirm 03/24/19 08:47 Diprivan 20 Ml Administered 03/24/19 08:48 Dose 200 mg .ROUTE .STK-MED ONE Departure - Departure Time of Disposition: 10:01 Disposition: Home, Self-Care 01 Condition: Poor Clinical Impression: Dislocation of hip joint prosthesis Qualifiers: Encounter type: initial encounter Qualified Code(s): T84.029A - Dislocation of unspecified internal joint prosthesis, initial encounter; Z96.649 - Presence of unspecified artificial hip joint - Discharge Information Referrals: PCP,None [Primary Care Provider] - Forms: ED Department Discharge Additional Instructions: Use oxycodone as needed for pain control, the [facility] orthopedic office will contact you in the next couple of days please contact them if you did not hear for them, call or return to the emergency department worsening of symptoms - My Orders Last 24 Hours: My Active Orders 03/24/19 08:40 Peripheral IV Insertion Adult [OM.PC] Urgent 03/24/19 08:43 Peripheral IV Care [RC] . DIRECTED Hip Min 1V Lt [CR] Stat Sodium Chloride 0.9% [Saline Flush] 10 ml FLUSH ASDIRECTED PRN 03/24/19 08:45 Sodium Chloride 0.9% [Normal Saline] 1,000 ml IV ASDIRECTED 03/24/19 09:15 Hip Min 1V Lt [CR] Stat 03/24/19 09:30 DME for Discharge [COMM] Per Unit Routine - Assessment/Plan Last 24 Hours: My Active Orders 03/24/19 08:40 Peripheral IV Insertion Adult [OM.PC] Urgent 03/24/19 08:43 Peripheral IV Care [RC] . DIRECTED Hip Min 1V Lt [CR] Stat Sodium Chloride 0.9% [Saline Flush] 10 ml FLUSH ASDIRECTED PRN 03/24/19 08:45 Sodium Chloride 0.9% [Normal Saline] 1,000 ml IV ASDIRECTED 03/24/19 09:15 Hip Min 1V Lt [CR] Stat 03/24/19 09:30 DME for Discharge [COMM] Per Unit Routine Plan: Assessment Acuity = acute Site and laterality = status post left hip dislocation with reduction complicated in a patient with known prosthetic joint Etiology = unknown etiology Manifestations = none Location of injury = Home Lab values = x-rays reveal dislocation and reduction adequate official read radiologist pending Plan Called discussed case with Quinten Brooks at [phone] [facility]. He is going to schedule a follow-up with this patient for more definitive care with her recurrent dislocations. He did recommend a knee immobilizer to limit the mobility of the hip. Prescription written for oxycodone 5/325 one tab by mouth 3 times a day when necessary total #10 provided for pain control. The orthopedic office will contact her in the next couple of days This note was dictated using [employer] voice recognition software please call with any questions on syntax or grammar.
[2019-03-24 10:00] VITALS: BP 126/80; PULSE 92
--- NOTE | 2019-03-24 10:00 | CR ---
Hip Min 1V Lt CLINICAL HISTORY: Dislocation, postreduction FINDINGS: Single portable view left hip shows reduction of the previous arthroplasty dislocation. IMPRESSION: Reduction of the previously dislocated left total hip arthroplasty
--- NOTE | 2019-03-24 10:07 | CR ---
Hip Min 1V Lt CLINICAL HISTORY: Left hip pain, total hip arthroplasty FINDINGS: There is a superior dislocation of the femoral component total hip arthroplasty. No fracture is identified. IMPRESSION: Superior dislocation of the femoral component of the left hip arthroplasty
== END 2019-03-24 10:17 | disposition home or self-care (01) ==
LOC: JP.ED 08:39
DX: T84.021A Dislocation of internal left hip prosthesis, initial encounter (principal); C56.9 Malignant neoplasm of unspecified ovary; F32.9 Major depressive disorder, single episode, unspecified; Z96.642 Presence of left artificial hip joint; Z88.5 Allergy status to narcotic agent; Z79.899 Other long term (current) drug therapy; D64.9 Anemia, unspecified; Z90.49 Acquired absence of other specified parts of digestive tract; Z90.710 Acquired absence of both cervix and uterus; Z98.84 Bariatric surgery status; X50.9XXA Other and unspecified overexertion or strenuous movements or postures, initial encounter
CPT/HCPCS: 27265; 27266; 73501; 96361; 96374; 99283; J1170; J2704; J7030

== ENCOUNTER 2019-07-18 13:11 | Inpatient (IN) | payer MEDICAID ==
[2019-07-18] MEDS ORDERED: Polyethylene Glycol 3350 Powder 17 GM Packet PO PRN (13:21)
[2019-07-18] MEDS ORDERED: Sodium Chloride 0.9% 10 ML Syringe FLUSH PRN (13:21)
--- NOTE | 2019-07-18 13:31 | PCM.HP.2 ---
H&P History of Present Illness - General Date of Service: 07/18/19 Admit Problem/Dx: Admission Diagnosis/Problem Admission Diagnosis/Problem Fever Source of Information: Patient, Family, Provider, RN Notes Reviewed History Limitations: Reports: No Limitations - History of Present Illness Initial Comments - Free Text/Narative: Ms. Urena is a 54-year-old woman who was admitted as a direct admission from the clinic for further evaluation and management of fever. She has a known history of metastatic ovarian carcinoma and has been receiving palliative chemotherapy. She was due for chemotherapy 2 weeks ago but had noted a fullness or swelling in her right neck. She was seen for follow-up by oncology 2 days ago and reported symptoms of fever that had been present over the last 24 hours. Therapy was held on Sunday and she followed up with Dr. Marquez today. Over the last 2 days has had persistent fevers with progressive weakness and decrease in appetite. Because of persistent fevers she was referred to me by Dr. Marquez for hospital admission and antibiotic therapy. Over the last few weeks she is also noted a fullness in her right neck that had not been there previously. She does have a right-sided Port-A-Cath. - Related Data Allergies/Adverse Reactions: Allergies Allergy/AdvReac Type Severity Reaction Status Date / Time codeine AdvReac Nausea Verified 03/24/19 08:40 Home Medications: Home Meds Biotin 2.5 mg PO BID 07/17/13 [History] Calcium Citrate 250 mg PO DAILY 07/17/13 [History] Cyanocobalamin (Vitamin B-12) [Vitamin B-12] 1,000 mcg SL DAILY 07/17/13 [ History] Multivitamin with Minerals [Multiple Vitamin] 1 tab PO BID 07/17/13 [History] Vitamin B Complex [B Complex] 1 each PO DAILY 07/17/13 [History] clonazePAM [Clonazepam] 1.5 - 2 mg PO BEDTIME 07/17/13 [History] Acetaminophen [Acetaminophen Extra Strength] 1,000 mg PO BEDTIME PRN 06/10/14 [ History] traMADol [Ultram] 50 mg PO Q6H PRN 06/10/14 [History] Ferrous Fumarate [Ferrocite] 324 mg PO DAILY 02/27/17 [History] Gabapentin [Neurontin] 300 mg PO BEDTIME 10/08/18 [History] Ondansetron [Zofran ODT] 4 mg PO Q6H PRN 10/08/18 [History] Prochlorperazine [Compazine] 5 mg PO Q6H PRN 10/08/18 [History] oxyCODONE 5 mg PO Q4HR PRN 10/08/18 [History] Magnesium Oxide [Magnesium] 400 mg PO DAILY #14 capsule 03/04/19 [Rx] Ciprofloxacin HCl [Cipro] 500 mg PO BID 07/18/19 [History] Zolpidem Tartrate [Ambien] 5 mg PO BEDTIME 07/18/19 [History] Past Medical History - Past Health History Medical/Surgical History: Denies Medical/Surgical History HEENT History: Reports: Impaired Vision Cardiovascular History: Reports: Other (See Below) Other Cardiovascular History: stress test December 2017 Respiratory History: Reports: PE Other Respiratory History: spring 2018 Gastrointestinal History: Reports: Cholelithiasis Genitourinary History: Reports: UTI, Recurrent [employer] History: Reports: Musculoskeletal History: Reports: Arthritis, Fracture Neurological History: Reports: Concussion Psychiatric History: Reports: Depression Other Psychiatric History: Adjustment disorder Hematologic History: Reports: Anemia, B12 Deficiency, Blood Transfusion(s), Iron Deficiency Oncologic (Cancer) History: Reports: Ovarian, Other (See Below) 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 13 lb tumor removed Musculoskeletal Surgical History: Reports: Hip Replacement, Knee Replacement Other Musculoskeletal Surgeries/Procedures:: left hip. right knee Other Oncologic Surgeries/Procedures: latricia Social & Family History - Caffeine Use Caffeine Use: Reports: Coffee, Soda, Tea H&P Review of Systems - Review of Systems: Review Of Systems: See Below General: Reports: Fever, Chills, Weakness, Decreased Appetite HEENT: Reports: No Symptoms Pulmonary: Reports: No Symptoms Cardiovascular: Reports: No Symptoms Gastrointestinal: Reports: No Symptoms Genitourinary: Reports: No Symptoms Musculoskeletal: Reports: No Symptoms Skin: Reports: No Symptoms Psychiatric: Reports: No Symptoms Neurological: Reports: No Symptoms Hematologic/Lymphatic: Reports: No Symptoms Immunologic: Reports: No Symptoms Exam - Exam Exam: See Below - Exam Quality Assessment: DVT Prophylaxis General: Alert, Oriented, Cooperative, Mild Distress HEENT: Conjunctiva Clear, Hearing Intact, Normal Nasal Septum, Posterior Pharynx Clear, Pupils Equal. No: Mucosa Moist & [place] Neck: Supple, Trachea Midline, +2 Carotid Pulse wo Bruit Lungs: Clear to Auscultation, Normal Respiratory Effort Cardiovascular: Regular Rate, Regular Rhythm, Normal S1, Normal S2. No: Systolic Murmur, Diastolic Murmur GI/Abdominal Exam: Soft, Non-Tender, No Organomegaly, No Distention Back Exam: Normal Inspection, Full Range of Motion Extremities: Non-Tender, No Pedal Edema Skin: Warm, Dry, Intact Neurological: Cranial Nerves Intact, Strength Equal Bilateral, Normal Speech, Normal Tone, Sensation Intact. No: Focal Deficit Neuro Extensive - Mental Status: Alert, Oriented x3, Normal Mood/Affect, Normal Cognition, Memory Intact - Patient Data Result Diagrams: 07/18/19 13:53 07/18/19 13:53 *Q Meaningful Use (ADM) - VTE Risk Assess *Q Each Risk Factor Represents 1 Point: Age 41 - 59 years Total Score 1 Point Risk Factors: 1 Each Risk Factor Represents 2 Points: None, Malignancy (present or previous) Total Score 2 Point Risk Factors: 2 Each Risk Factor Represents 5 Points: None Total Score 5 Point Risk Factors: 0 Problem List Initiated/Reviewed/Updated: Yes Orders Last 24hrs: Active Orders 24 hr Category Date Time Status Patient Status [ADT] Routine ADT 07/18/19 13:21 Ordered Ambulate [RC] QID Care 07/18/19 13:21 Ordered Height and Weight [RC] DAILY Care 07/18/19 13:21 Ordered Intake and Output [RC] QSHIFT Care 07/18/19 13:21 Ordered Notify Provider Vital Signs [RC] ASDIRECTED Care 07/18/19 13:21 Ordered Oxygen Therapy [RC] PRN Care 07/18/19 13:21 Ordered Peripheral IV Care [RC] . DIRECTED Care 07/18/19 13:24 Ordered Up With Assistance [RC] ASDIRECTED Care 07/18/19 13:21 Ordered Up to Chair [RC] QID Care 07/18/19 13:21 Ordered VTE/DVT Education [RC] Per Unit Routine Care 07/18/19 13:21 Ordered Vital Signs [RC] Q4H Care 07/18/19 13:21 Ordered Regular Diet [DIET] Diet 07/18/19 Lunch Ordered Chest 2V [CR] Stat Exams 07/18/19 13:21 Ordered Extremity Non Vascular Lt [US] Stat Exams 07/18/19 13:28 Ordered BASIC METABOLIC PANEL,BMP [CHEM] Timed Lab 07/19/19 05:00 Ordered C-REACTIVE PROTEIN [CHEM] Stat Lab 07/18/19 13:21 Ordered CBC WITH AUTO DIFF [HEME] Stat Lab 07/18/19 13:21 Ordered CBC WITH AUTO DIFF [HEME] Timed Lab 07/19/19 05:00 Ordered COMPREHENSIVE METABOLIC PN,CMP [CHEM] Stat Lab 07/18/19 13:21 Ordered CULTURE BLOOD [BC] Stat Lab 07/18/19 13:21 Ordered CULTURE BLOOD [BC] Stat Lab 07/18/19 13:21 Ordered UA W/MICROSCOPIC [URIN] Stat Lab 07/18/19 13:21 Ordered Acetaminophen [Tylenol] Med 07/18/19 13:21 Ordered 650 mg PO Q4H PRN Cefepime [Maxipime] 1 gm Med 07/18/19 13:30 Ordered Sodium Chloride 0.9% [Normal Saline] 50 ml IV Q8H Enoxaparin [Lovenox] Med 07/18/19 13:30 Ordered 40 mg SUBCUT DAILY Lactobacillus Rhamnosus GG [Culturelle] Med 07/18/19 13:30 Ordered 1 cap PO BID Ondansetron [Zofran] Med 07/18/19 13:21 Ordered 4 mg IV Q4H PRN Polyethylene Glycol 3350 [MiraLAX] Med 07/18/19 13:21 Ordered 17 gm PO DAILY PRN Sodium Chloride 0.9% @ 125 MLS/HR (1000ml) Med 07/18/19 13:30 Ordered Sodium Chloride 0.9% [Normal Saline] 1,000 ml IV ASDIRECTED Sodium Chloride 0.9% [Saline Flush] Med 07/18/19 13:21 Ordered 10 ml FLUSH ASDIRECTED PRN Vancomycin Med 07/18/19 14:00 Ordered 1 gm IV .PHARMACY TO DOSE Blood Culture x2 Reflex Set [OM.PC] Stat Oth 07/18/19 13:23 Ordered Peripheral IV Insertion Adult [OM.PC] Routine Oth 07/18/19 13:21 Ordered Resuscitation Status Routine Resus Stat 07/18/19 13:21 Ordered Assessment/Plan Comment:: ASSESSMENT AND PLAN FEVER-present for the last 3 to 4 days with significant temperature elevations documented at home, over 102 F. She is not currently neutropenic and has not received chemotherapy for the past few weeks. She does have a right-sided Port- A-Cath and has noted some fullness in the right neck. Also present are prosthetic joints left hip and right knee. -Blood cultures, 1 peripheral and one from the Port-A-Cath -Further evaluation for other source of infection; labs, chest x-ray, urinalysis -Empiric IV antibiotic therapy with cefepime and vancomycin, pending culture results -Ultrasound right neck fullness METASTATIC OVARIAN CARCINOMA MAINTENANCE ISSUES -DVT prophylaxis; Lovenox 40 mg subcu daily -GI prophylaxis; not indicated -Rendon catheter; not indicated -Nutrition; regular diet -Nicotine dependence; not required CODE STATUS-FULL CODE ADMISSION STATUS-patient will be admitted to inpatient status, expect at least a 2 night hospital stay for evaluation and management of problems as outlined above. At the time of this admission I do not reasonably expected evaluation and management of this problem will require more than a 96 hour hospital stay. DISPOSITION-anticipate discharge to home after the hospital stay. PRIMARY CARE PROVIDER-Dr. Marquez - Mortality Measure Prognosis:: Good
[2019-07-18] MEDS ORDERED: Vancomycin 1 GM SDV IV SCH (14:00)
[2019-07-18] MEDS: Sodium Chloride 0.9% 1,000 ML IV SCH (14:35)
[2019-07-18] MEDS: Cefepime 1 GM in Sodium Chloride 0.9% 50 ML IV SCH ×2 (14:36→22:25)
[2019-07-18] MEDS: Lactobacillus Rhamnosus GG (Probiotic) Cap PO SCH ×2 (15:42→20:04)
[2019-07-18] MEDS: Enoxaparin 40 MG/0.4 ML Syringe SUBCUT SCH (15:42)
--- NOTE | 2019-07-18 15:43 | CRLCR ---
INDICATION: Fever TECHNIQUE: Chest 2 views. COMPARISON: October 08, 2018 FINDINGS: Stable cardiomediastinal silhouette. Normal pulmonary vasculature. No pneumothorax, effusion, or focal infiltrate. Stable elevation of the right hemidiaphragm. Right-sided Port-A-Cath terminates at the cavoatrial junction. Surgical clips in the right upper quadrant. No acute osseous abnormality. IMPRESSION: No sign of acute disease. Dictated by Nory Rogers MD @ Jul 18 2019 3:40PM Signed by Dr. Nory Rogers @ Jul 18 2019 3:41PM
[2019-07-18] MEDS: HYDROmorphone 2 MG Tab PO PRN ×3 (16:15→23:05)
--- NOTE | 2019-07-18 16:41 | CRLUS ---
INDICATION: AREA OF FULLNESS/MASS RIGHT LOWER NECK / CHEST WALL. FEVER WITH UNDERLYING METASTIC OVARIAN CARCINOMA AND RIGHT SIDED CENTRAL LINE Prelim: Heterogeneous 2.3 x 2.1 x 1.7cm mass in RIGHT neck with peripheral blood flow. Mass is lateral to the internal jugular vein and common carotid artery. This may represent a hematoma, complex abscess or mass. There is also a heterogeneous 3.5 x 3.7 x 1.9cm mass in the LEFT neck lateral to the IJV and common carotid artery. There is blood flow in this mass. This is a nonspecific soft tissue mass. Recommend CT Neck with IV contrast for further evaluation. Agree with preliminary report. Metastatic lesions are not definite but possible. CT scan with IV contrast is indicated for further evaluation. Dictated by: Robbie Flores MD @ 07/21/2019 08:33:56 (Electronically Signed)
[2019-07-18] MEDS: Ondansetron 4 MG/2 ML SDV IV PRN (18:38)
[2019-07-18] MEDS: Gabapentin 300 MG Cap PO SCH (20:04)
[2019-07-18] MEDS: Acetaminophen 325 MG Tab PO PRN (20:24)
[2019-07-18] MEDS: ClonazePAM 1 MG Tab PO PRN (20:36)
[2019-07-18] MEDS: Zolpidem 5 MG Tab PO PRN (20:36)
[2019-07-18] MEDS ORDERED: ClonazePAM 1 MG Tab PO SCH (21:00)
[2019-07-18] MEDS ORDERED: BIOTIN 2.5 MG PO SCH (21:00)
[2019-07-19] MEDS: Sodium Chloride 0.9% 1,000 ML IV SCH (00:41)
[2019-07-19] MEDS: HYDROmorphone 2 MG Tab PO PRN ×4 (02:09→19:55)
[2019-07-19] MEDS: ClonazePAM 1 MG Tab PO PRN ×3 (04:05→14:37)
[2019-07-19] MEDS: Cefepime 1 GM in Sodium Chloride 0.9% 50 ML IV SCH ×3 (06:58→21:51)
[2019-07-19] MEDS ORDERED: Non-Formulary Medication 1 Each (Magnesium Oxide [Magnesium] 400 MG) PO SCH (09:00)
[2019-07-19] MEDS: Lactobacillus Rhamnosus GG (Probiotic) Cap PO SCH ×2 (09:48→21:51)
[2019-07-19] MEDS: Magnesium Oxide 400 MG Tab PO SCH (09:48)
[2019-07-19] MEDS ORDERED: Potassium Chloride 20 MEQ Tab.ER PO ONE (10:00)
--- NOTE | 2019-07-19 10:40 | PCM.PN ---
- General Info Date of Service: 07/19/19 Subjective Update: Ms. Urena has felt somewhat improved from admission, this has improved and her appetite also is better than it had been yesterday. Ultrasound obtained of the right neck mass, question hematoma versus metastatic disease versus abscess. Also noted was an asymptomatic mass in the left neck, indeterminant. Functional Status: Reports: Tolerating Diet, Ambulating, Urinating - Review of Systems General: Reports: Fever, Weakness, Fatigue, Chills Pulmonary: Reports: No Symptoms Cardiovascular: Reports: No Symptoms Gastrointestinal: Reports: No Symptoms - Patient Data Vitals - Most Recent: Last Vital Signs Temp 97.5 F 07/19/19 07:52 Pulse 83 07/19/19 07:52 Resp 16 07/19/19 07:52 BP 98/71 07/19/19 07:52 Pulse Ox 99 07/19/19 07:52 Weight - Most Recent: 113 lb I&O - Last 24 Hours: Intake & Output 07/18/19 07/19/19 07/19/19 22:59 06:59 14:59 Intake Total 633 1915 Output Total 300 1000 800 Balance 333 915 -800 Lab Results Last 24 Hours: Laboratory Results - last 24 hr 07/18/19 07/18/19 07/18/19 Range/Units 13:50 13:53 13:53 WBC 7.1 (4.5-11.0) K/uL RBC 3.25 L (3.30-5.50) M/uL Hgb 9.2 L (12.0-15.0) g/dL Hct 30.3 L (36.0-48.0) % MCV 93 (80-98) fL MCH 28 (27-31) pg MCHC 30 L (32-36) % Plt Count 315 (150-400) K/uL Neut % (Auto) 76 H (36-66) % Lymph % (Auto) 16 L (24-44) % [place] % (Auto) 6 (2-6) % Eos % (Auto) 1 L (2-4) % Baso % (Auto) 0 (0-1) % Sodium 138 L (140-148) mmol/L Potassium 3.8 (3.6-5.2) mmol/L Chloride 101 (100-108) mmol/L Carbon Dioxide 29 (21-32) mmol/L Anion Gap 11.8 (5.0-14.0) mmol/L BUN 10 (7-18) mg/dL Creatinine 0.8 (0.6-1.0) mg/dL Est Cr Clr Drug Dosing 62.84 mL/min Estimated GFR (MDRD) > 60 (>60) Glucose 96 (74-106) mg/dL Calcium 8.6 (8.5-10.1) mg/dL Total Bilirubin 0.3 (0.2-1.0) mg/dL AST 20 (15-37) U/L ALT 23 (12-78) U/L Alkaline Phosphatase 98 (46-116) U/L C-Reactive Protein 9.26 H (0.0-0.3) mg/dL Total Protein 7.4 (6.4-8.2) g/dL Albumin 2.9 L (3.4-5.0) g/dL Globulin 4.5 H (2.3-3.5) g/dL Albumin/Globulin Ratio 0.6 L (1.2-2.2) Urine Color [place] A (YELLOW) Urine Appearance Clear (CLEAR) Urine pH 5.5 (5.0-8.0) Ur Specific [place] >= 1.030 (1.008-1.030) Urine Protein Trace H (NEGATIVE) mg/dL Urine Glucose (UA) Negative (NEGATIVE) mg/dL Urine Ketones Negative (NEGATIVE) mg/dL Urine Occult Blood Negative (NEGATIVE) Urine Nitrite Negative (NEGATIVE) Urine Bilirubin Small H (NEGATIVE) Urine Urobilinogen 0.2 (0.2-1.0) EU/dL Ur Leukocyte Esterase Trace H (NEGATIVE) Urine RBC 5-10 H (0-5) Urine WBC 0-5 (0-5) Ur Epithelial Cells Many Amorphous Sediment Many Urine Bacteria Rare Urine Mucus Few 07/19/19 07/19/19 Range/Units 04:12 04:12 WBC 5.4 (4.5-11.0) K/uL RBC 2.80 L (3.30-5.50) M/uL Hgb 8.0 L (12.0-15.0) g/dL Hct 26.2 L (36.0-48.0) % MCV 94 (80-98) fL MCH 29 (27-31) pg MCHC 31 L (32-36) % Plt Count 291 (150-400) K/uL Neut % (Auto) 66 (36-66) % Lymph % (Auto) 23 L (24-44) % [place] % (Auto) 7 H (2-6) % Eos % (Auto) 3 (2-4) % Baso % (Auto) 1 (0-1) % Sodium 141 (140-148) mmol/L Potassium 3.1 L (3.6-5.2) mmol/L Chloride 107 (100-108) mmol/L Carbon Dioxide 25 (21-32) mmol/L Anion Gap 12.1 (5.0-14.0) mmol/L BUN 6 L (7-18) mg/dL Creatinine 0.6 (0.6-1.0) mg/dL Est Cr Clr Drug Dosing 83.79 mL/min Estimated GFR (MDRD) > 60 (>60) Glucose 133 H (74-106) mg/dL Calcium 8.0 L (8.5-10.1) mg/dL Total Bilirubin (0.2-1.0) mg/dL AST (15-37) U/L ALT (12-78) U/L Alkaline Phosphatase (46-116) U/L C-Reactive Protein (0.0-0.3) mg/dL Total Protein (6.4-8.2) g/dL Albumin (3.4-5.0) g/dL Globulin (2.3-3.5) g/dL Albumin/Globulin Ratio (1.2-2.2) Urine Color (YELLOW) Urine Appearance (CLEAR) Urine pH (5.0-8.0) Ur Specific [place] (1.008-1.030) Urine Protein (NEGATIVE) mg/dL Urine Glucose (UA) (NEGATIVE) mg/dL Urine Ketones (NEGATIVE) mg/dL Urine Occult Blood (NEGATIVE) Urine Nitrite (NEGATIVE) Urine Bilirubin (NEGATIVE) Urine Urobilinogen (0.2-1.0) EU/dL Ur Leukocyte Esterase (NEGATIVE) Urine RBC (0-5) Urine WBC (0-5) Ur Epithelial Cells Amorphous Sediment Urine Bacteria Urine Mucus Med Orders - Current: Current Medications Acetaminophen (Tylenol) 650 mg PO Q4H PRN PRN Reason: Pain (Mild 1-3)/fever Last Admin: 07/18/19 20:24 Dose: 650 mg Clonazepam (Klonopin) 2 mg PO Q6H PRN PRN Reason: Anxiety Enoxaparin Sodium (Lovenox) 40 mg SUBCUT Q24H [facility] Last Admin: 07/18/19 15:42 Dose: 40 mg Gabapentin (Neurontin) 300 mg PO BEDTIME [facility] Last Admin: 07/18/19 20:04 Dose: 300 mg Hydromorphone HCl (Dilaudid) 4 mg PO Q3H PRN PRN Reason: Pain Last Admin: 07/19/19 07:48 Dose: 4 mg Cefepime HCl 1 gm/ Sodium (Chloride) 50 mls @ 100 mls/hr IV Q8H [facility] Last Admin: 07/19/19 06:58 Dose: 100 mls/hr Vancomycin HCl 1 gm/ Sodium (Chloride) 250 mls @ 167 mls/hr IV Q12H [facility] Last Admin: 07/19/19 04:04 Dose: 167 mls/hr Lactobacillus Rhamnosus (Culturelle) 1 cap PO BID [facility] Last Admin: 07/19/19 09:48 Dose: 1 cap Magnesium Oxide (Magnesium Oxide) 400 mg PO DAILY [facility] Last Admin: 07/19/19 09:48 Dose: 400 mg Ondansetron HCl (Zofran) 4 mg IV Q4H PRN PRN Reason: Nausea/Vomiting Last Admin: 07/18/19 18:38 Dose: 4 mg Polyethylene Glycol (Miralax) 17 gm PO DAILY PRN PRN Reason: Constipation Potassium Chloride (Klor-Con M20) 40 meq PO ONETIME ONE Stop: 07/19/19 17:01 Sodium Chloride (Saline Flush) 10 ml FLUSH ASDIRECTED PRN PRN Reason: Keep Vein Open Zolpidem Tartrate (Ambien) 10 mg PO BEDTIME PRN PRN Reason: Sleep Last Admin: 07/18/19 20:36 Dose: 10 mg Discontinued Medications Clonazepam (Klonopin) 2 mg PO BEDTIME [facility] Clonazepam (Klonopin) 1 mg PO TID PRN PRN Reason: Anxiety Last Admin: 07/19/19 09:42 Dose: 1 mg Sodium Chloride (Normal Saline) 1,000 mls @ 125 mls/hr IV ASDIRECTED [facility] Last Admin: 07/19/19 00:41 Dose: 125 mls/hr Potassium Chloride (Klor-Con M20) 40 meq PO ONETIME ONE Stop: 07/19/19 10:01 - Exam Quality Assessment: DVT Prophylaxis General: Alert, Oriented, Cooperative, Mild Distress Lungs: Clear to Auscultation, Normal Respiratory Effort Cardiovascular: Regular Rate, Regular Rhythm, No Murmurs GI/Abdominal Exam: Soft, Non-Tender, No Organomegaly, No Distention Extremities: Non-Tender, No Pedal Edema Sepsis Event Note - Evaluation Sepsis Screening Result: No Definite Risk - Focused Exam Vital Signs: Vital Signs Temp Pulse Resp BP Pulse Ox 07/19/19 07:52 97.5 F 83 16 98/71 99 07/19/19 04:07 97.5 F 89 16 104/66 100 07/18/19 23:07 97.6 F 94 16 104/57 L 95 Date Exam was Performed: 07/19/19 Time Exam was Performed: 10:37 - Problem List Review Problem List Initiated/Reviewed/Updated: Yes - My Orders Last 24 Hours: My Active Orders 07/18/19 13:21 Patient Status [ADT] Routine Ambulate [RC] QID Height and Weight [RC] DAILY Intake and Output [RC] QSHIFT Notify Provider Vital Signs [RC] ASDIRECTED Oxygen Therapy [RC] PRN Up With Assistance [RC] ASDIRECTED Up to Chair [RC] QID VTE/DVT Education [RC] Per Unit Routine Vital Signs [RC] Q4H Acetaminophen [Tylenol] 650 mg PO Q4H PRN Ondansetron [Zofran] 4 mg IV Q4H PRN Polyethylene Glycol 3350 [MiraLAX] 17 gm PO DAILY PRN Sodium Chloride 0.9% [Saline Flush] 10 ml FLUSH ASDIRECTED PRN Peripheral IV Insertion Adult [OM.PC] Routine Resuscitation Status Routine 07/18/19 13:23 Blood Culture x2 Reflex Set [OM.PC] Stat 07/18/19 13:24 Peripheral IV Care [RC] . DIRECTED 07/18/19 13:30 Lactobacillus Rhamnosus GG [Culturelle] 1 cap PO BID 07/18/19 13:53 CULTURE BLOOD [BC] Stat 07/18/19 14:00 Cefepime [Maxipime] 1 gm Sodium Chloride 0.9% [Normal Saline] 50 ml IV Q8H 07/18/19 14:34 CULTURE BLOOD [BC] Stat 07/18/19 15:48 HYDROmorphone [Dilaudid] 4 mg PO Q3H PRN 07/18/19 16:00 Enoxaparin [Lovenox] 40 mg SUBCUT Q24H Vancomycin 1 gm Sodium Chloride 0.9% [Normal Saline] 250 ml IV Q12H 07/18/19 21:00 Gabapentin [Neurontin] 300 mg PO BEDTIME 07/18/19 Lunch Regular Diet [DIET] 07/19/19 09:00 Magnesium Oxide 400 mg PO DAILY 07/19/19 10:28 ClonazePAM [KlonoPIN] 2 mg PO Q6H PRN Convert IV to Saline Lock [OM.PC] Routine 07/19/19 10:30 Soft Tissue Neck w Cont [CT] Stat 07/19/19 17:00 Potassium Chloride [Klor-Con M20] 40 meq PO ONETIME ONE 07/20/19 05:00 BASIC METABOLIC PANEL,BMP [CHEM] Timed CBC WITH AUTO DIFF [HEME] Timed - Plan Plan:: ASSESSMENT AND PLAN FEVER-present for the last 3 to 4 days with significant temperature elevations documented at home, over 102 F. She is not currently neutropenic and has not received chemotherapy for the past few weeks. She does have a right-sided Port- A-Cath and has noted some fullness in the right neck. Also present are prosthetic joints left hip and right knee. She is felt somewhat improved from admission. Ultrasound of the right neck shows indeterminate mass and also incidental finding of a left neck mass. -ET scan of the neck with IV contrast -Blood cultures, 1 peripheral and one from the Port-A-Cath -Empiric IV antibiotic therapy with cefepime and vancomycin, pending culture results HYPOKALEMIA -Oral potassium replacement -Follow-up potassium level in a.m. METASTATIC OVARIAN CARCINOMA MAINTENANCE ISSUES -DVT prophylaxis; Lovenox 40 mg subcu daily -GI prophylaxis; not indicated -Rendon catheter; not indicated -Nutrition; regular diet -Nicotine dependence; not required CODE STATUS-FULL CODE ADMISSION STATUS-patient will be admitted to inpatient status, expect at least a 2 night hospital stay for evaluation and management of problems as outlined above. At the time of this admission I do not reasonably expected evaluation and management of this problem will require more than a 96 hour hospital stay. DISPOSITION-anticipate discharge to home after the hospital stay. PRIMARY CARE PROVIDER-Dr. Marquez
[2019-07-19] MEDS: Sodium Chloride 0.9% 10 ML Syringe FLUSH ONE ×2 (10:56→11:21)
[2019-07-19] MEDS ORDERED: Iopamidol 612 MG/ML 100 ML Bottle IV SCH (11:00)
[2019-07-19] MEDS ORDERED: Potassium Chloride 10 MEQ Cap.ER PO ONE ×2 (11:00→17:00)
--- NOTE | 2019-07-19 12:11 | CRLCT ---
INDICATION: Bilateral neck masses. TECHNIQUE: CT scan of the soft tissues of the neck with 100 cc of Isovue-300 given intravenously. FINDINGS: Right-sided Port-A-Cath. No adenopathy in the neck. No neck masses. Normal appearance of the thyroid gland. Enlarged right supraclavicular lymph node measuring 1.8 cm in short axis with extensive central necrosis. Enlarged left cervical occur lymph node measuring 1.3 cm in short axis with extensive central necrosis. A few smaller bilateral supraclavicular lymph nodes. Small upper mediastinal/pre-vascular lymph nodes measuring up to 8 mm in short axis many of which have central necrosis. The mid and upper lungs show a few small nodules in the posterior aspect of the right upper lobe measuring up to 7 mm. No pneumothorax. No other bony or soft tissue abnormalities identified. IMPRESSION: 1. Bilateral supraclavicular and upper mediastinal adenopathy with most of the lymph nodes having extensive central necrosis. This could be due to an infectious process such as tuberculosis but can`t exclude a neoplastic process. Dictated by Brad Suh MD @ 07/19/2019 12:11:16 PM Please note that all CT scans at this facility use dose modulation, iterative reconstruction, and/or weight-based dosing when appropriate to reduce radiation dose to as low as reasonably achievable. Dictated by: Brad Suh MD @ 07/19/2019 12:11:30 (Electronically Signed)
[2019-07-19] MEDS: Methadone 10 MG Tab PO SCH (13:17)
[2019-07-19] MEDS: Ondansetron 4 MG/2 ML SDV IV PRN (13:46)
[2019-07-19] MEDS: Enoxaparin 40 MG/0.4 ML Syringe SUBCUT SCH (16:56)
[2019-07-19] MEDS: Gabapentin 300 MG Cap PO SCH (21:51)
[2019-07-19] MEDS: Zolpidem 5 MG Tab PO PRN (21:51)
[2019-07-20] MEDS: Methadone 10 MG Tab PO SCH ×2 (02:24→13:17)
[2019-07-20] MEDS: Acetaminophen 325 MG Tab PO PRN ×3 (02:35→17:03)
[2019-07-20] MEDS: HYDROmorphone 2 MG Tab PO PRN ×3 (04:01→19:40)
[2019-07-20] MEDS: Cefepime 1 GM in Sodium Chloride 0.9% 50 ML IV SCH ×3 (07:19→21:18)
[2019-07-20] MEDS: Lactobacillus Rhamnosus GG (Probiotic) Cap PO SCH ×2 (08:30→20:35)
[2019-07-20] MEDS: Magnesium Oxide 400 MG Tab PO SCH (08:30)
--- NOTE | 2019-07-20 10:55 | PCM.PN ---
- General Info Date of Service: 07/20/19 Subjective Update: Ms. Urena has been stable since yesterday, no recurrent temperature elevation. Energy level and appetite seem to be improved. She has noted modest improvement in pain control with initiation of methadone yesterday. Functional Status: Reports: Tolerating Diet, Ambulating, Urinating - Review of Systems General: Reports: Weakness, Fatigue. Denies: Fever, Chills Pulmonary: Reports: No Symptoms Cardiovascular: Reports: No Symptoms Gastrointestinal: Reports: No Symptoms - Patient Data Vitals - Most Recent: Last Vital Signs Temp 99.5 F 07/20/19 02:26 Pulse 80 07/20/19 07:57 Resp 16 07/20/19 07:57 BP 105/73 07/20/19 07:57 Pulse Ox 98 07/20/19 07:57 Weight - Most Recent: 119 lb 6.4 oz I&O - Last 24 Hours: Intake & Output 07/19/19 07/20/19 07/20/19 22:59 06:59 14:59 Intake Total 705 1005 550 Output Total 1100 1050 Balance -395 -45 550 Lab Results Last 24 Hours: Laboratory Results - last 24 hr 07/20/19 07/20/19 Range/Units 04:30 04:30 WBC 5.7 (4.5-11.0) K/uL RBC 2.79 L (3.30-5.50) M/uL Hgb 7.7 L (12.0-15.0) g/dL Hct 26.5 L (36.0-48.0) % MCV 95 (80-98) fL MCH 28 (27-31) pg MCHC 29 L (32-36) % Plt Count 314 (150-400) K/uL Neut % (Auto) 68 H (36-66) % Lymph % (Auto) 21 L (24-44) % Greer % (Auto) 7 H (2-6) % Eos % (Auto) 3 (2-4) % Baso % (Auto) 0 (0-1) % Sodium 142 (140-148) mmol/L Potassium 3.8 (3.6-5.2) mmol/L Chloride 108 (100-108) mmol/L Carbon Dioxide 26 (21-32) mmol/L Anion Gap 7.8 (5.0-14.0) mmol/L BUN 6 L (7-18) mg/dL Creatinine 0.7 (0.6-1.0) mg/dL Est Cr Clr Drug Dosing 71.82 mL/min Estimated GFR (MDRD) > 60 (>60) Glucose 108 H (74-106) mg/dL Calcium 8.3 L (8.5-10.1) mg/dL Jimmy Results Last 24 Hours: Microbiology 07/18/19 19:23 Urine Culture - Preliminary Urine, Clean Catch NO GROWTH AFTER 1 DAY 07/18/19 14:34 Aerobic Blood Culture - Preliminary Blood - Venous NO GROWTH AFTER 1 DAY Anaerobic Blood Culture - Preliminary NO GROWTH AFTER 1 DAY 07/18/19 13:53 Aerobic Blood Culture - Preliminary Blood - Venous - Lab Draw NO GROWTH AFTER 1 DAY Anaerobic Blood Culture - Preliminary NO GROWTH AFTER 1 DAY Med Orders - Current: Current Medications Acetaminophen (Tylenol) 650 mg PO Q4H PRN PRN Reason: Pain (Mild 1-3)/fever Last Admin: 07/20/19 08:29 Dose: 650 mg Clonazepam (Klonopin) 2 mg PO Q6H PRN PRN Reason: Anxiety Last Admin: 07/19/19 14:37 Dose: 2 mg Enoxaparin Sodium (Lovenox) 40 mg SUBCUT Q24H [facility] Last Admin: 07/19/19 16:56 Dose: 40 mg Gabapentin (Neurontin) 300 mg PO BEDTIME [facility] Last Admin: 07/19/19 21:51 Dose: 300 mg Heparin Sodium (Porcine) (Heparin Lock Flush 100 Units/Ml) 500 units FLUSH ASDIRECTED PRN PRN Reason: Flush port Hydromorphone HCl (Dilaudid) 4 mg PO Q3H PRN PRN Reason: Pain Last Admin: 07/20/19 08:29 Dose: 4 mg Cefepime HCl 1 gm/ Sodium (Chloride) 50 mls @ 100 mls/hr IV Q8H [facility] Last Admin: 07/20/19 07:19 Dose: 100 mls/hr Vancomycin HCl 1 gm/ Sodium (Chloride) 250 mls @ 167 mls/hr IV Q12H [facility] Last Admin: 07/20/19 03:41 Dose: 167 mls/hr Lactobacillus Rhamnosus (Culturelle) 1 cap PO BID [facility] Last Admin: 07/20/19 08:30 Dose: 1 cap Magnesium Oxide (Magnesium Oxide) 400 mg PO DAILY [facility] Last Admin: 07/20/19 08:30 Dose: 400 mg Methadone HCl (Methadone) 10 mg PO Q12H [facility] Last Admin: 07/20/19 02:24 Dose: 10 mg Ondansetron HCl (Zofran) 4 mg IV Q4H PRN PRN Reason: Nausea/Vomiting Last Admin: 07/19/19 13:46 Dose: 4 mg Polyethylene Glycol (Miralax) 17 gm PO DAILY PRN PRN Reason: Constipation Sodium Chloride (Saline Flush) 10 ml FLUSH ASDIRECTED PRN PRN Reason: Keep Vein Open Zolpidem Tartrate (Ambien) 10 mg PO BEDTIME PRN PRN Reason: Sleep Last Admin: 07/19/19 21:51 Dose: 10 mg Discontinued Medications Clonazepam (Klonopin) 2 mg PO BEDTIME [facility] Clonazepam (Klonopin) 1 mg PO TID PRN PRN Reason: Anxiety Last Admin: 07/19/19 09:42 Dose: 1 mg Sodium Chloride (Normal Saline) 1,000 mls @ 125 mls/hr IV ASDIRECTED [facility] Last Admin: 07/19/19 00:41 Dose: 125 mls/hr Sodium Chloride (Normal Saline) 70 mls @ 3 mls/sec IV ASDIRECTED [facility] Stop: 07/19/19 11:01 Last Admin: 07/19/19 11:22 Dose: 3 mls/sec Iopamidol (Isovue-300 (61%)) 100 ml IV . DIRECTED [facility] Stop: 07/19/19 11:01 Last Admin: 07/19/19 11:21 Dose: 100 ml Potassium Chloride (Potassium Chloride) 40 meq PO ONETIME ONE Stop: 07/19/19 17:01 Last Admin: 07/19/19 16:56 Dose: 40 meq Potassium Chloride (Potassium Chloride) 40 meq PO ONETIME ONE Stop: 07/19/19 11:01 Last Admin: 07/19/19 10:52 Dose: 40 meq Sodium Chloride (Saline Flush) 10 ml FLUSH ONETIME ONE Stop: 07/19/19 10:52 Last Admin: 07/19/19 11:21 Dose: 10 ml - Exam Quality Assessment: DVT Prophylaxis General: Alert, Oriented, Cooperative, Mild Distress Lungs: Clear to Auscultation Cardiovascular: Regular Rate, Regular Rhythm, No Murmurs GI/Abdominal Exam: Soft, No Organomegaly, Tender. No: Distended, Guarding, Rigid, Rebound Extremities: Non-Tender, No Pedal Edema Sepsis Event Note - Evaluation Sepsis Screening Result: No Definite Risk - Focused Exam Vital Signs: Vital Signs Temp Pulse Resp BP Pulse Ox 07/20/19 07:57 80 16 105/73 98 07/20/19 02:26 99.5 F 92 14 101/69 91 L Date Exam was Performed: 07/20/19 Time Exam was Performed: 10:49 - Problem List Review Problem List Initiated/Reviewed/Updated: Yes - My Orders Last 24 Hours: My Active Orders 07/19/19 10:28 ClonazePAM [KlonoPIN] 2 mg PO Q6H PRN Convert IV to Saline Lock [OM.PC] Routine 07/19/19 11:56 Heparin Sodium [Heparin Lock Flush 100 Units/ML] 500 units FLUSH ASDIRECTED PRN 07/19/19 14:00 Methadone 10 mg PO Q12H - Plan Plan:: ASSESSMENT AND PLAN FEVER-no significant temperature elevation noted over the past 2 days. No obvious source of infection has been identified, cultures remain negative. She is not currently neutropenic and has not received chemotherapy for the past few weeks. She does have a right-sided Port-A-Cath. Cultures all remain negative. -Blood cultures, 1 peripheral and one from the Port-A-Cath -Empiric IV antibiotic therapy with cefepime and vancomycin, pending culture results HYPOKALEMIA-resolved METASTATIC OVARIAN CARCINOMA-lesions in the neck noted on ultrasound appear to be related to cancer involving lymph nodes. It appears these lymph nodes have outgrown their blood supply and have necrotic centers which may explain the pain that she is experiencing in her right neck. CT scan of the neck has been sent to the [email or web address]. -Review current findings with her oncologist in the morning -Continue methadone 10 mg p.o. every 12 hours -Continue Dilaudid 4 mg p.o. every 3 hours -Reassess pain control in a.m. MAINTENANCE ISSUES -DVT prophylaxis; Lovenox 40 mg subcu daily -GI prophylaxis; not indicated -Rendon catheter; not indicated -Nutrition; regular diet -Nicotine dependence; not required CODE STATUS-FULL CODE ADMISSION STATUS-patient will be admitted to inpatient status, expect at least a 2 night hospital stay for evaluation and management of problems as outlined above. At the time of this admission I do not reasonably expected evaluation and management of this problem will require more than a 96 hour hospital stay. DISPOSITION-anticipate discharge to home after the hospital stay. PRIMARY CARE PROVIDER-Dr. Marquez
[2019-07-20] MEDS: Ondansetron 4 MG/2 ML SDV IV PRN ×2 (13:47→19:35)
[2019-07-20] MEDS: ClonazePAM 1 MG Tab PO PRN (15:00)
[2019-07-20] MEDS: Enoxaparin 40 MG/0.4 ML Syringe SUBCUT SCH (16:54)
[2019-07-20] MEDS: Gabapentin 300 MG Cap PO SCH (20:35)
[2019-07-21] MEDS: Methadone 10 MG Tab PO SCH ×3 (02:04→20:24)
[2019-07-21] MEDS: Acetaminophen 325 MG Tab PO PRN ×2 (02:19→17:21)
[2019-07-21] MEDS: Cefepime 1 GM in Sodium Chloride 0.9% 50 ML IV SCH (05:45)
[2019-07-21] MEDS: Magnesium Oxide 400 MG Tab PO SCH (08:48)
[2019-07-21] MEDS: Lactobacillus Rhamnosus GG (Probiotic) Cap PO SCH ×2 (08:48→20:24)
--- NOTE | 2019-07-21 10:17 | PCM.PN ---
- General Info Date of Service: 07/21/19 Subjective Update: No acute events overnight. Pain is fairly well-controlled but there is some room for improvement. No fevers. Pain is located in her neck, back and abdomen which are all normal sites for her to have pain. No nausea or vomiting. Cultures remain negative. Oncologist is not available for discussion at this time but will be tomorrow. Functional Status: Reports: Pain Controlled, Tolerating Diet - Review of Systems General: Denies: Fever HEENT: Reports: Other (neck pain ) Gastrointestinal: Reports: Abdominal Pain Musculoskeletal: Reports: Back Pain - Patient Data Vitals - Most Recent: Last Vital Signs Temp 37.1 C 07/21/19 06:58 Pulse 94 07/21/19 06:58 Resp 16 07/21/19 06:58 BP 95/60 07/21/19 06:58 Pulse Ox 97 07/21/19 06:58 Weight - Most Recent: 54.522 kg I&O - Last 24 Hours: Intake & Output 07/20/19 07/21/19 07/21/19 22:59 06:59 14:59 Intake Total 300 1100 500 Output Total 750 1100 Balance -450 0 500 Jimmy Results Last 24 Hours: Microbiology 07/18/19 19:23 Urine Culture - Final Urine, Clean Catch NO GROWTH AFTER 2 DAYS 07/18/19 14:34 Aerobic Blood Culture - Preliminary Blood - Venous NO GROWTH AFTER 2 DAYS Anaerobic Blood Culture - Preliminary NO GROWTH AFTER 2 DAYS 07/18/19 13:53 Aerobic Blood Culture - Preliminary Blood - Venous - Lab Draw NO GROWTH AFTER 2 DAYS Anaerobic Blood Culture - Preliminary NO GROWTH AFTER 2 DAYS Med Orders - Current: Current Medications Acetaminophen (Tylenol) 650 mg PO Q4H PRN PRN Reason: Pain (Mild 1-3)/fever Last Admin: 07/21/19 02:19 Dose: 650 mg Clonazepam (Klonopin) 2 mg PO Q6H PRN PRN Reason: Anxiety Last Admin: 07/20/19 15:00 Dose: 2 mg Gabapentin (Neurontin) 300 mg PO BEDTIME [facility] Last Admin: 07/20/19 20:35 Dose: 300 mg Heparin Sodium (Porcine) (Heparin Lock Flush 100 Units/Ml) 500 units FLUSH ASDIRECTED PRN PRN Reason: Flush port Hydromorphone HCl (Dilaudid) 4 mg PO Q3H PRN PRN Reason: Pain Last Admin: 07/20/19 19:40 Dose: 4 mg Vancomycin HCl 1 gm/ Sodium (Chloride) 250 mls @ 167 mls/hr IV Q12H [facility] Last Admin: 07/21/19 03:55 Dose: 167 mls/hr Lactobacillus Rhamnosus (Culturelle) 1 cap PO BID [facility] Last Admin: 07/21/19 08:48 Dose: 1 cap Magnesium Oxide (Magnesium Oxide) 400 mg PO DAILY [facility] Last Admin: 07/21/19 08:48 Dose: 400 mg Methadone HCl (Methadone) 10 mg PO Q12H [facility] Last Admin: 07/21/19 02:04 Dose: 10 mg Ondansetron HCl (Zofran) 4 mg IV Q4H PRN PRN Reason: Nausea/Vomiting Last Admin: 07/20/19 19:35 Dose: 4 mg Polyethylene Glycol (Miralax) 17 gm PO DAILY PRN PRN Reason: Constipation Sodium Chloride (Saline Flush) 10 ml FLUSH ASDIRECTED PRN PRN Reason: Keep Vein Open Zolpidem Tartrate (Ambien) 10 mg PO BEDTIME PRN PRN Reason: Sleep Last Admin: 07/19/19 21:51 Dose: 10 mg Discontinued Medications Clonazepam (Klonopin) 2 mg PO BEDTIME [facility] Clonazepam (Klonopin) 1 mg PO TID PRN PRN Reason: Anxiety Last Admin: 07/19/19 09:42 Dose: 1 mg Enoxaparin Sodium (Lovenox) 40 mg SUBCUT Q24H [facility] Last Admin: 07/20/19 16:54 Dose: 40 mg Cefepime HCl 1 gm/ Sodium (Chloride) 50 mls @ 100 mls/hr IV Q8H [facility] Last Admin: 07/21/19 05:45 Dose: 100 mls/hr Sodium Chloride (Normal Saline) 1,000 mls @ 125 mls/hr IV ASDIRECTED [facility] Last Admin: 07/19/19 00:41 Dose: 125 mls/hr Sodium Chloride (Normal Saline) 70 mls @ 3 mls/sec IV ASDIRECTED [facility] Stop: 07/19/19 11:01 Last Admin: 07/19/19 11:22 Dose: 3 mls/sec Iopamidol (Isovue-300 (61%)) 100 ml IV . DIRECTED [facility] Stop: 07/19/19 11:01 Last Admin: 07/19/19 11:21 Dose: 100 ml Potassium Chloride (Potassium Chloride) 40 meq PO ONETIME ONE Stop: 07/19/19 17:01 Last Admin: 07/19/19 16:56 Dose: 40 meq Potassium Chloride (Potassium Chloride) 40 meq PO ONETIME ONE Stop: 07/19/19 11:01 Last Admin: 07/19/19 10:52 Dose: 40 meq Sodium Chloride (Saline Flush) 10 ml FLUSH ONETIME ONE Stop: 07/19/19 10:52 Last Admin: 07/19/19 11:21 Dose: 10 ml - Exam Quality Assessment: No: Supplemental Oxygen General: Alert, Oriented, Cooperative, No Acute Distress Lungs: Normal Respiratory Effort GI/Abdominal Exam: Soft, No Distention Sepsis Event Note - Evaluation Sepsis Screening Result: No Definite Risk - Focused Exam Vital Signs: Vital Signs Temp Pulse Resp BP Pulse Ox 07/21/19 06:58 37.1 C 94 16 95/60 97 07/21/19 03:15 36.6 C 87 16 93/59 L 93 L Date Exam was Performed: 07/21/19 Time Exam was Performed: 10:45 - Problem List Review Problem List Initiated/Reviewed/Updated: Yes - My Orders Last 24 Hours: My Active Orders 07/21/19 10:14 Antiembolic Devices [RC] .Routine Consult to Physician [CONS] Routine SCD [Sequential Compression Device] [OM.PC] Routine 07/21/19 10:15 Notify Provider Consults [RC] ASDIRECTED 07/21/19 14:00 Methadone 10 mg PO TID 07/21/19 Dinner NPO After Midnight [Nothing per Oral After Midnight Diet] [DIET] 07/22/19 05:00 BASIC METABOLIC PANEL,BMP [CHEM] Timed CBC W/O DIFF,HEMOGRAM [HEME] Timed (1) - Plan Plan:: ASSESSMENT AND PLAN FEVER-no significant temperature elevation noted over the past 2 days. No obvious source of infection has been identified, cultures remain negative. Temperature elevation could be related to suspected malignancy in the neck region -Blood cultures, 1 peripheral and one from the Port-A-Cath -Discontinue antibiotics HYPOKALEMIA-resolved METASTATIC OVARIAN CARCINOMA-lesions in the neck noted on ultrasound appear to be related to cancer involving lymph nodes. It appears these lymph nodes have outgrown their blood supply and have necrotic centers which may explain the pain that she is experiencing in her right neck. CT images have been sent to the [email or web address] system. -Review current findings with her oncologist in the morning -Continue methadone 10 mg p.o. TID -Continue Dilaudid 4 mg p.o. every 3 hours -Reassess pain control in a.m. -Consult Dr. Bills to consider FNA versus biopsy of the neck lesions MAINTENANCE ISSUES -DVT prophylaxis; mechanical -GI prophylaxis; not indicated -Rendon catheter; not indicated -Nutrition; regular diet DISPOSITION-anticipate discharge to home after the hospital stay. Eddie More MD
[2019-07-21] MEDS: ClonazePAM 1 MG Tab PO PRN (11:15)
[2019-07-21] MEDS: HYDROmorphone 2 MG Tab PO PRN ×2 (11:15→17:28)
[2019-07-21] MEDS: Ondansetron 4 MG/2 ML SDV IV PRN (14:54)
[2019-07-21] MEDS: Gabapentin 300 MG Cap PO SCH (20:26)
[2019-07-22] MEDS: HYDROmorphone 2 MG Tab PO PRN ×2 (04:33→20:09)
[2019-07-22] MEDS: Acetaminophen 325 MG Tab PO PRN (09:48)
[2019-07-22] MEDS: Magnesium Oxide 400 MG Tab PO SCH (09:49)
[2019-07-22] MEDS: Lactobacillus Rhamnosus GG (Probiotic) Cap PO SCH ×2 (09:49→20:09)
[2019-07-22] MEDS: Methadone 10 MG Tab PO SCH ×4 (09:55→23:35)
--- NOTE | 2019-07-22 13:35 | PCM.PN ---
- General Info Date of Service: 07/22/19 Subjective Update: No acute events overnight. Pain is well controlled. No fevers. Cultures remain negative. Biopsy versus fine-needle aspiration planned for today. Functional Status: Reports: Pain Controlled, Tolerating Diet - Review of Systems General: Denies: Fever - Patient Data Vitals - Most Recent: Last Vital Signs Temp 37.2 C 07/22/19 07:18 Pulse 86 07/22/19 07:00 Resp 12 07/22/19 07:00 BP 103/65 07/22/19 07:00 Pulse Ox 90 L 07/22/19 07:00 Weight - Most Recent: 54.522 kg I&O - Last 24 Hours: Intake & Output 07/21/19 07/22/19 07/22/19 22:59 06:59 14:59 Intake Total 400 Output Total 1500 650 600 Balance -1100 -650 -600 Lab Results Last 24 Hours: Laboratory Results - last 24 hr 07/22/19 07/22/19 Range/Units 04:10 04:10 WBC 4.8 (4.5-11.0) K/uL RBC 2.96 L (3.30-5.50) M/uL Hgb 8.1 L (12.0-15.0) g/dL Hct 28.2 L (36.0-48.0) % MCV 95 (80-98) fL MCH 27 (27-31) pg MCHC 29 L (32-36) % Plt Count 340 (150-400) K/uL Sodium 143 (140-148) mmol/L Potassium 4.1 (3.6-5.2) mmol/L Chloride 105 (100-108) mmol/L Carbon Dioxide 30 (21-32) mmol/L Anion Gap 8.4 (5.0-14.0) mmol/L BUN 6 L (7-18) mg/dL Creatinine 0.5 L (0.6-1.0) mg/dL Est Cr Clr Drug Dosing 99.68 mL/min Estimated GFR (MDRD) > 60 (>60) Glucose 85 (74-106) mg/dL Calcium 8.8 (8.5-10.1) mg/dL Jimmy Results Last 24 Hours: Microbiology 07/18/19 14:34 Aerobic Blood Culture - Preliminary Blood - Venous NO GROWTH AFTER 3 DAYS Anaerobic Blood Culture - Preliminary NO GROWTH AFTER 3 DAYS 07/18/19 13:53 Aerobic Blood Culture - Preliminary Blood - Venous - Lab Draw NO GROWTH AFTER 3 DAYS Anaerobic Blood Culture - Preliminary NO GROWTH AFTER 3 DAYS Med Orders - Current: Current Medications Acetaminophen (Tylenol) 650 mg PO Q4H PRN PRN Reason: Pain (Mild 1-3)/fever Last Admin: 07/22/19 09:48 Dose: 650 mg Clonazepam (Klonopin) 2 mg PO Q6H PRN PRN Reason: Anxiety Last Admin: 07/21/19 11:15 Dose: 2 mg Gabapentin (Neurontin) 300 mg PO BEDTIME [facility] Last Admin: 07/21/19 20:26 Dose: 300 mg Heparin Sodium (Porcine) (Heparin Lock Flush 100 Units/Ml) 500 units FLUSH ASDIRECTED PRN PRN Reason: Flush port Hydromorphone HCl (Dilaudid) 4 mg PO Q3H PRN PRN Reason: Pain Last Admin: 07/22/19 04:33 Dose: 4 mg Lactobacillus Rhamnosus (Culturelle) 1 cap PO BID [facility] Last Admin: 07/22/19 09:49 Dose: 1 cap Magnesium Oxide (Magnesium Oxide) 400 mg PO DAILY [facility] Last Admin: 07/22/19 09:49 Dose: 400 mg Methadone HCl (Methadone) 10 mg PO TID [facility] Last Admin: 07/22/19 09:55 Dose: 10 mg Ondansetron HCl (Zofran) 4 mg IV Q4H PRN PRN Reason: Nausea/Vomiting Last Admin: 07/21/19 14:54 Dose: 4 mg Polyethylene Glycol (Miralax) 17 gm PO DAILY PRN PRN Reason: Constipation Sodium Chloride (Saline Flush) 10 ml FLUSH ASDIRECTED PRN PRN Reason: Keep Vein Open Zolpidem Tartrate (Ambien) 10 mg PO BEDTIME PRN PRN Reason: Sleep Last Admin: 07/19/19 21:51 Dose: 10 mg Discontinued Medications Clonazepam (Klonopin) 2 mg PO BEDTIME [facility] Clonazepam (Klonopin) 1 mg PO TID PRN PRN Reason: Anxiety Last Admin: 07/19/19 09:42 Dose: 1 mg Enoxaparin Sodium (Lovenox) 40 mg SUBCUT Q24H [facility] Last Admin: 07/20/19 16:54 Dose: 40 mg Cefepime HCl 1 gm/ Sodium (Chloride) 50 mls @ 100 mls/hr IV Q8H [facility] Last Admin: 07/21/19 05:45 Dose: 100 mls/hr Sodium Chloride (Normal Saline) 1,000 mls @ 125 mls/hr IV ASDIRECTED [facility] Last Admin: 07/19/19 00:41 Dose: 125 mls/hr Vancomycin HCl 1 gm/ Sodium (Chloride) 250 mls @ 167 mls/hr IV Q12H [facility] Last Admin: 07/21/19 03:55 Dose: 167 mls/hr Sodium Chloride (Normal Saline) 70 mls @ 3 mls/sec IV ASDIRECTED [facility] Stop: 07/19/19 11:01 Last Admin: 07/19/19 11:22 Dose: 3 mls/sec Iopamidol (Isovue-300 (61%)) 100 ml IV . DIRECTED [facility] Stop: 07/19/19 11:01 Last Admin: 07/19/19 11:21 Dose: 100 ml Methadone HCl (Methadone) 10 mg PO Q12H [facility] Last Admin: 07/21/19 02:04 Dose: 10 mg Potassium Chloride (Potassium Chloride) 40 meq PO ONETIME ONE Stop: 07/19/19 17:01 Last Admin: 07/19/19 16:56 Dose: 40 meq Potassium Chloride (Potassium Chloride) 40 meq PO ONETIME ONE Stop: 07/19/19 11:01 Last Admin: 07/19/19 10:52 Dose: 40 meq Sodium Chloride (Saline Flush) 10 ml FLUSH ONETIME ONE Stop: 07/19/19 10:52 Last Admin: 07/19/19 11:21 Dose: 10 ml - Exam Quality Assessment: No: Supplemental Oxygen General: Alert, Oriented, Cooperative, No Acute Distress Lungs: Normal Respiratory Effort Cardiovascular: Regular Rate, Regular Rhythm GI/Abdominal Exam: Soft, No Distention Extremities: No Pedal Edema Psy/Mental Status: Alert, Normal Affect Sepsis Event Note - Evaluation Sepsis Screening Result: No Definite Risk - Focused Exam Vital Signs: Vital Signs Temp Pulse Pulse Resp BP Pulse Ox 07/22/19 07:18 37.2 C 07/22/19 07:00 86 12 103/65 90 L 07/22/19 03:00 36.3 C 86 16 104/82 95 Date Exam was Performed: 07/22/19 Time Exam was Performed: 13:34 - Problem List Review Problem List Initiated/Reviewed/Updated: Yes - My Orders Last 24 Hours: My Active Orders 07/21/19 14:00 Methadone 10 mg PO TID 07/21/19 Dinner NPO After Midnight [Nothing per Oral After Midnight Diet] [DIET] - Plan Plan:: ASSESSMENT AND PLAN FEVER-no significant temperature elevation noted over the past 3 days. No obvious source of infection has been identified, cultures remain negative. Temperature elevation could be related to suspected malignancy in the neck region -Follow blood cultures which are negative so far -Discontinue antibiotics HYPOKALEMIA-resolved METASTATIC OVARIAN CARCINOMA-lesions in the neck noted on ultrasound appear to be related to cancer involving lymph nodes. It appears these lymph nodes have outgrown their blood supply and have necrotic centers which may explain the pain that she is experiencing in her right neck. CT images have been sent to the [facility] system. -These findings were reviewed with her oncologist this morning -Continue methadone 10 mg p.o. TID -Continue Dilaudid 4 mg p.o. every 3 hours -Reassess pain control in a.m. -Consult Dr. Bills to consider FNA versus biopsy of the neck lesions today MAINTENANCE ISSUES -DVT prophylaxis; mechanical -GI prophylaxis; not indicated -Rendon catheter; not indicated -Nutrition; regular diet DISPOSITION-anticipate discharge to home after the hospital stay. Eddie More MD
[2019-07-22] MEDS ORDERED: Bupivacaine 0.5% 50 ML MDV ONE (13:49)
[2019-07-22] MEDS ORDERED: Lidocaine 1% with EPINEPHrine 1:100,000 50 ML MDV ONE (13:50)
[2019-07-22] MEDS ORDERED: Bacitracin Oint 1 GM U/D Packet ONE (14:04)
[2019-07-22] MEDS ORDERED: Midazolam 1 MG/ML 2 ML SDV ONE (15:52)
[2019-07-22] MEDS ORDERED: Propofol 200 MG/20 ML SDV ONE (15:52)
[2019-07-22] MEDS ORDERED: fentaNYL 100 MCG/2 ML SDV ONE (15:52)
[2019-07-22] MEDS: Gabapentin 300 MG Cap PO SCH (20:09)
[2019-07-22] MEDS: ClonazePAM 1 MG Tab PO PRN (20:09)
[2019-07-23] MEDS: HYDROmorphone 2 MG Tab PO PRN (05:43)
[2019-07-23] MEDS: Lactobacillus Rhamnosus GG (Probiotic) Cap PO SCH (08:35)
[2019-07-23] MEDS: Methadone 10 MG Tab PO SCH (08:35)
[2019-07-23] MEDS: Magnesium Oxide 400 MG Tab PO SCH (08:35)
[2019-07-23 08:46] VITALS: BP 112/74; PULSE 92
--- NOTE | 2019-07-23 10:48 | PCM.DCSUM1 ---
Discharge Summary - Hospital Course Brief History: 54-year-old female with history of recurrent ovarian cancer who presented as a direct admission from the clinic after several days of fever, weakness and poor intake. Diagnosis: Stroke: No - Discharge Data Discharge Date: 07/23/19 Discharge Disposition: Home, Self-Care 01 Condition: Good - Referral to Home Health Primary Care Physician: Sandor Marquez MD - Discharge Diagnosis/Problem(s) (1) Fever SNOMED Code(s): 822289899 ICD Code: R50.9 - FEVER, UNSPECIFIED Status: Acute Qualifiers: Fever type: unspecified Qualified Code(s): R50.9 - Fever, unspecified (2) Neck pain SNOMED Code(s): 46444912 ICD Code: M54.2 - CERVICALGIA Status: Acute (3) Ovarian cancer Status: Chronic Qualifiers: Laterality: unspecified laterality Qualified Code(s): C56.9 - Malignant neoplasm of unspecified ovary - Patient Summary/Data Consults: Consultations 07/21/19 08:00 Consult to Spiritual Care [CONS] Routine Spiritual Care Reason for Consult: advanced directive update 07/21/19 10:14 Consult to Physician [CONS] Routine Consulting Provider: Vladimir Bills Call Completed to Consulting Physician: Yes Reason for Consult: lymphadenopathy, consider bx vs FNA for diagnosis Person Notified: RW Date Notified: 07/21/19 Special Instructions: will see in am. pt will be NPO after midnight Hospital Course: Mayuri presented to the clinic initially for evaluation of a fever, weakness and poor intake. She was sent to the hospital for expedited work-up and management. Upon arrival she was started on broad-spectrum antibiotics after cultures were obtained. Initially there was no strong evidence to support infection based on urinalysis or chest x-ray. She did complain of increasing fullness, especially on the right side of her neck. She did have an ultrasound which showed an enlarged area in the supraclavicular region on both sides concerning for mass or possibly abscess. This prompted a CT scan of the neck which showed what appeared to be enlarged lymph nodes both supraclavicular and upper mediastinal. These had extensive central necrosis which was concerning for metastatic disease. Atypical infection or granulomatous infection was in the differential. Broad-spectrum antibiotics were continued but all of her cultures were negative. She has been afebrile so her antibiotics were discontinued once cultures were negative for several days. She has not had a recurrence of the fevers. We were concerned about metastatic ovarian cancer so we did have perform biopsies of the 1 of the lesions to be sent for tissue diagnosis. The patient has been improving steadily throughout the hospital stay. Appetite has been improving. Strength has been improving. She has been afebrile for several days and feels well. I did talk to her oncologist who agreed with our current plan. She will be following up early next week with the hope that the biopsy results will be available at that time. Also of note during the hospital stay was the patient's experience with severe pain related to her cancer. Current pain is located in the neck area on both sides as well as back and abdomen. Pain had not been well controlled utilizing oxycodone. Pain control did improve with the initiation of methadone and changed to short acting pain control with hydromorphone. We have titrated her methadone to 10 mg 3 times daily which has been working well. She has been utilizing hydromorphone for breakthrough pain on occasion. I did talk to Dr. Marquez and he was agreeable to continuing this regimen since it had been providing adequate pain control. She did receive a prescription for 2 weeks worth of pain medication at the time of discharge. She has follow-up scheduled next week. - Patient Instructions Diet: Regular Diet as Tolerated Activity: As Tolerated Showering/Bathing: May Shower Notify Provider of: Fever, Increased Pain, Nausea and/or Vomiting Other/Special Instructions: 1. You were in the hospital for management of fever and neck pain. I suspect the fever was caused by the enlarged and necrotic lesions in your neck. These lesions are worrisome for metastatic cancer. Samples have been taken but the results are not available at this time. You should be receiving results next week at your follow[facility]up with [facility]. We did not find any evidence for infection and no further antibiotics are needed at this time. You may stop taking the ciprofloxacin that had been prescribed prior to hospital admission. 2. We have changed your pain medication for better pain control. You should stop taking the oxycodone. You should start taking methadone 10 mg 3 times daily for long-acting pain management. You may use the hydromorphone every 4 hours as needed for pain. If you have mild pain 2 mg should be sufficient if you have moderate or severe pain you may need to take 4 mg at one time. I have sent prescriptions for these new pain medications to [facility]. I did talk to Dr. Marquez and he will be continuing these pain medications as long as they continue to provide benefit for your cancer related pain. 3. Follow up with Dr Marquez and Oncology next week as scheduled - Discharge Plan *PRESCRIPTION DRUG MONITORING PROGRAM REVIEWED*: Yes *COPY OF PRESCRIPTION DRUG MONITORING REPORT IN PATIENT KAYLEN: No Prescriptions/Med Rec: HYDROmorphone [Dilaudid] 4 mg PO Q4H PRN #60 tablet PRN Reason: cancer related pain Methadone 10 mg PO TID #42 tablet Home Medications: Home Meds Calcium Citrate 250 mg PO DAILY 07/17/13 [History] Cyanocobalamin (Vitamin B-12) [Vitamin B-12] 1,000 mcg SL DAILY 07/17/13 [ History] Multivitamin with Minerals [Multiple Vitamin] 1 tab PO BID 07/17/13 [History] Vitamin B Complex [B Complex] 1 each PO DAILY 07/17/13 [History] clonazePAM [Clonazepam] 2 mg PO Q6H PRN 07/17/13 [History] Acetaminophen [Acetaminophen Extra Strength] 1,000 mg PO BEDTIME PRN 06/10/14 [ History] Ferrous Fumarate [Ferrocite] 324 mg PO DAILY 02/27/17 [History] Gabapentin [Neurontin] 300 mg PO BEDTIME 10/08/18 [History] Ondansetron [Zofran ODT] 4 mg PO Q6H PRN 10/08/18 [History] Prochlorperazine [Compazine] 5 mg PO Q6H PRN 10/08/18 [History] Magnesium Oxide [Magnesium] 400 mg PO DAILY #14 capsule 03/04/19 [Rx] Zolpidem Tartrate [Ambien] 5 mg PO BEDTIME 07/18/19 [History] HYDROmorphone [Dilaudid] 4 mg PO Q4H PRN #60 tablet 07/23/19 [Rx] Methadone 10 mg PO TID #42 tablet 07/23/19 [Rx] Oxygen Therapy Mode: Room Air Patient Handouts: ESBL Infection Information, Implanted Port Home Guide Referrals: Sandor Marquez MD [Primary Care Provider] - 07/30/19 1:30 pm Katty Solares MD [Ordering Only Provider] - 07/29/19 11:45 am ([facility] ) - Discharge Summary/Plan Comment DC Time >30 min.: Yes (40 -coordinating follow-up and medication changes with primary care and onc) - Patient Data Vitals - Most Recent: Last Vital Signs Temp 37.2 C 07/23/19 08:44 Pulse 92 07/23/19 08:44 Resp 16 07/23/19 08:44 BP 112/74 07/23/19 08:44 Pulse Ox 96 07/23/19 08:44 Weight - Most Recent: 53.796 kg I&O - Last 24 hours: Intake & Output 07/22/19 07/23/19 07/23/19 22:59 06:59 14:59 Intake Total 980 Output Total 1300 500 Balance -1300 480 PETAR Results - Last 24 hrs: Microbiology 07/18/19 14:34 Aerobic Blood Culture - Preliminary Blood - Venous NO GROWTH AFTER 4 DAYS Anaerobic Blood Culture - Preliminary NO GROWTH AFTER 4 DAYS 07/18/19 13:53 Aerobic Blood Culture - Preliminary Blood - Venous - Lab Draw NO GROWTH AFTER 4 DAYS Anaerobic Blood Culture - Preliminary NO GROWTH AFTER 4 DAYS Med Orders - Current: Current Medications Acetaminophen (Tylenol) 650 mg PO Q4H PRN PRN Reason: Pain (Mild 1-3)/fever Last Admin: 07/22/19 09:48 Dose: 650 mg Clonazepam (Klonopin) 2 mg PO Q6H PRN PRN Reason: Anxiety Last Admin: 07/22/19 20:09 Dose: 2 mg Gabapentin (Neurontin) 300 mg PO BEDTIME [facility] Last Admin: 07/22/19 20:09 Dose: 300 mg Heparin Sodium (Porcine) (Heparin Lock Flush 100 Units/Ml) 500 units FLUSH ASDIRECTED PRN PRN Reason: Flush port Last Admin: 07/23/19 08:36 Dose: 500 units Hydromorphone HCl (Dilaudid) 4 mg PO Q3H PRN PRN Reason: Pain Last Admin: 07/23/19 05:43 Dose: 4 mg Lactobacillus Rhamnosus (Culturelle) 1 cap PO BID [facility] Last Admin: 07/23/19 08:35 Dose: 1 cap Magnesium Oxide (Magnesium Oxide) 400 mg PO DAILY [facility] Last Admin: 07/23/19 08:35 Dose: 400 mg Methadone HCl (Methadone) 10 mg PO TID [facility] Last Admin: 07/23/19 08:35 Dose: 10 mg Ondansetron HCl (Zofran) 4 mg IV Q4H PRN PRN Reason: Nausea/Vomiting Last Admin: 07/21/19 14:54 Dose: 4 mg Polyethylene Glycol (Miralax) 17 gm PO DAILY PRN PRN Reason: Constipation Sodium Chloride (Saline Flush) 10 ml FLUSH ASDIRECTED PRN PRN Reason: Keep Vein Open Zolpidem Tartrate (Ambien) 10 mg PO BEDTIME PRN PRN Reason: Sleep Last Admin: 07/19/19 21:51 Dose: 10 mg Discontinued Medications Bacitracin (Bacitracin Oint 1 Gm) Confirm Administered Dose 2 dose .ROUTE .[employer]- MED ONE Stop: 07/22/19 14:05 Last Admin: 07/22/19 16:26 Dose: 2 dose Bupivacaine HCl (Marcaine 0.5%) Confirm Administered Dose 50 ml .ROUTE .[employer]-MED ONE Stop: 07/22/19 13:50 Last Admin: 07/22/19 16:20 Dose: 5 ml Clonazepam (Klonopin) 2 mg PO BEDTIME AMRIK Clonazepam (Klonopin) 1 mg PO TID PRN PRN Reason: Anxiety Last Admin: 07/19/19 09:42 Dose: 1 mg Enoxaparin Sodium (Lovenox) 40 mg SUBCUT Q24H [facility] Last Admin: 07/20/19 16:54 Dose: 40 mg Fentanyl (Sublimaze) Confirm Administered Dose 100 mcg .ROUTE .STK-MED ONE Stop: 07/22/19 15:53 Cefepime HCl 1 gm/ Sodium (Chloride) 50 mls @ 100 mls/hr IV Q8H [facility] Last Admin: 07/21/19 05:45 Dose: 100 mls/hr Sodium Chloride (Normal Saline) 1,000 mls @ 125 mls/hr IV ASDIRECTED [facility] Last Admin: 07/19/19 00:41 Dose: 125 mls/hr Vancomycin HCl 1 gm/ Sodium (Chloride) 250 mls @ 167 mls/hr IV Q12H [facility] Last Admin: 07/21/19 03:55 Dose: 167 mls/hr Sodium Chloride (Normal Saline) 70 mls @ 3 mls/sec IV ASDIRECTED [facility] Stop: 07/19/19 11:01 Last Admin: 07/19/19 11:22 Dose: 3 mls/sec Iopamidol (Isovue-300 (61%)) 100 ml IV . DIRECTED [facility] Stop: 07/19/19 11:01 Last Admin: 07/19/19 11:21 Dose: 100 ml Lidocaine/Epinephrine (Xylocaine 1% With Epinephrine 1:100,000) Confirm Administered Dose 50 ml .ROUTE .STK-MED ONE Stop: 07/22/19 13:51 Last Admin: 07/22/19 16:20 Dose: 5 ml Methadone HCl (Methadone) 10 mg PO Q12H [facility] Last Admin: 07/21/19 02:04 Dose: 10 mg Methadone HCl (Methadone) 10 mg PO Q5H [facility] Stop: 07/22/19 22:31 Last Admin: 07/22/19 23:35 Dose: 10 mg Midazolam HCl (Versed 1 Mg/Ml) Confirm Administered Dose 2 mg .ROUTE .STK-MED ONE Stop: 07/22/19 15:53 Potassium Chloride (Potassium Chloride) 40 meq PO ONETIME ONE Stop: 07/19/19 17:01 Last Admin: 07/19/19 16:56 Dose: 40 meq Potassium Chloride (Potassium Chloride) 40 meq PO ONETIME ONE Stop: 07/19/19 11:01 Last Admin: 07/19/19 10:52 Dose: 40 meq Propofol (Diprivan 20 Ml) Confirm Administered Dose 200 mg .ROUTE .STK-MED ONE Stop: 07/22/19 15:53 Sodium Chloride (Saline Flush) 10 ml FLUSH ONETIME ONE Stop: 07/19/19 10:52 Last Admin: 07/19/19 11:21 Dose: 10 ml - Exam Quality Assessment: Denies: Supplemental Oxygen General: Reports: Alert, Oriented, Cooperative, No Acute Distress Neck: Reports: Supple, Other (fullness and mild tenderness both supraclavicular areas ) Lungs: Reports: Normal Respiratory Effort Cardiovascular: Reports: Regular Rhythm Extremities: No Pedal Edema
--- NOTE | 2019-07-23 11:56 | OR ---
DATE OF PROCEDURE: 07/22/2019 SURGEON: Vladimir Bills MD PROCEDURE: Ultrasound-guided biopsy of left supraclavicular node, enlarged, vacuum- assisted. COMPLICATION: None. [place] SLABS: None. ANESTHESIA: MAC/local. PREOPERATIVE DIAGNOSIS: Concern for malignant metastasis to the aforementioned lymph node. POSTOPERATIVE DIAGNOSIS: Concern for malignant metastasis to the aforementioned lymph node. RISKS: Risks, benefits, alternatives, and limitations including, but not limited to, infection, bleeding, false positives, false negatives, hematoma, seroma formation, injury to associated structures were explained to the patient, who wished to proceed. PROCEDURE IN DETAIL: The patient was placed in supine position. The left subclavian area was ultrasounded, along with the right side. This was the largest node as there were multiple large lymph nodes. The skin was anesthetized with 1% lidocaine. A kristopher was created in the skin. The 14-gauge biopsy vacuum-assisted gun was introduced and passed through the lymph node. A single biopsy was performed, and this was then repeated. Good solid cores were noted. Direct pressure was held for 10 minutes, and Dermabond was applied. The patient tolerated the procedure well. Vladimir Bills MD /[id number]
== END 2019-07-23 12:40 | disposition home or self-care (01) | DRG 824 ==
LOC: JP.MS 13:11
PROVIDERS: ADMIT Hospitalist; ATTEND Internal Medicine
PROC: 07B23ZX Excision of Left Neck Lymphatic, Percutaneous Approach, Diagnostic (ICD-10-PCS; principal; 2019-07-22)
DX: C77.0 Secondary and unspecified malignant neoplasm of lymph nodes of head, face and neck (principal); C56.9 Malignant neoplasm of unspecified ovary; C77.1 Secondary and unspecified malignant neoplasm of intrathoracic lymph nodes; G89.3 Neoplasm related pain (acute) (chronic); E87.6 Hypokalemia; F32.9 Major depressive disorder, single episode, unspecified; D50.9 Iron deficiency anemia, unspecified; M19.90 Unspecified osteoarthritis, unspecified site; Z96.642 Presence of left artificial hip joint; Z96.651 Presence of right artificial knee joint; Z88.5 Allergy status to narcotic agent; Z79.899 Other long term (current) drug therapy; Z86.711 Personal history of pulmonary embolism; Z90.49 Acquired absence of other specified parts of digestive tract; Z90.710 Acquired absence of both cervix and uterus
CPT/HCPCS: 36415; 70491; 71046; 76536-RT; 76998; 80048; 80053; 81001; 85025; 85027; 86140; 87040; 87086; 88305; 88341; 88342; 88360; A9270-GY; J0692; J1642; J1650; J2250; J2405; J2704; J3010; J3370; J3490; J7030; J7050; Q9967

== ENCOUNTER 2019-10-10 09:37 | Emergency (ER) | payer MEDICAID, OTHER ==
[2019-10-10 09:55] VITALS: BP 133/87; PULSE 93
--- NOTE | 2019-10-10 10:40 | EDM.PDOC ---
ED HPI GENERAL MEDICAL PROBLEM - General Chief Complaint: Fever Stated Complaint: from clinic temp takes chemo treatments Time Seen by Provider: 10/10/19 10:36 Source of Information: Reports: Patient History Limitations: Reports: No Limitations - History of Present Illness INITIAL COMMENTS - FREE TEXT/NARRATIVE: pt arrived at the clinic for chemo today. She had her temp taken at the door and this was found to be 100.8. She did state she had the heater at high blowing on her. On arrival here she had her temp taken temporal and it was not elevated. S she has not felt different. She was ill in Sep and did not have her chemo.. Onset: Today, Other ( first noted at the door of the clinic. ) Duration: Hour(s): Associated Symptoms: Reports: Weakness - Related Data Allergies Allergy/AdvReac Type Severity Reaction Status Date / Time codeine AdvReac Nausea Verified 03/24/19 08:40 Home Meds: Home Meds Calcium Citrate 250 mg PO DAILY 07/17/13 [History] Cyanocobalamin (Vitamin B-12) [Vitamin B-12] 1,000 mcg SL DAILY 07/17/13 [ History] Multivitamin with Minerals [Multiple Vitamin] 1 tab PO BID 07/17/13 [History] Vitamin B Complex [B Complex] 1 each PO DAILY 07/17/13 [History] clonazePAM [Clonazepam] 2 mg PO Q6H PRN 07/17/13 [History] Acetaminophen [Acetaminophen Extra Strength] 1,000 mg PO BEDTIME PRN 06/10/14 [ History] Ferrous Fumarate [Ferrocite] 324 mg PO DAILY 02/27/17 [History] Gabapentin [Neurontin] 300 mg PO BEDTIME 10/08/18 [History] Ondansetron [Zofran ODT] 4 mg PO Q6H PRN 10/08/18 [History] Prochlorperazine [Compazine] 5 mg PO Q6H PRN 10/08/18 [History] Magnesium Oxide [Magnesium] 400 mg PO DAILY #14 capsule 03/04/19 [Rx] Zolpidem Tartrate [Ambien] 5 mg PO BEDTIME 07/18/19 [History] HYDROmorphone [Dilaudid] 4 mg PO Q4H PRN #60 tablet 07/23/19 [Rx] Methadone 10 mg PO TID #42 tablet 07/23/19 [Rx] Past Medical History - Past Health History Medical/Surgical History: Denies Medical/Surgical History HEENT History: Reports: Impaired Vision Cardiovascular History: Reports: Other (See Below) Other Cardiovascular History: stress test December 2017 Respiratory History: Reports: PE Other Respiratory History: spring 2018 Gastrointestinal History: Reports: Cholelithiasis Genitourinary History: Reports: UTI, Recurrent RADIO ARTIST History: Reports: Other RADIO ARTIST History: hysterectomy 2011 Musculoskeletal History: Reports: Arthritis, Fracture Neurological History: Reports: Concussion Psychiatric History: Reports: Depression Other Psychiatric History: Adjustment disorder Hematologic History: Reports: Anemia, B12 Deficiency, Blood Transfusion(s), Iron Deficiency Oncologic (Cancer) History: Reports: Ovarian, Other (See Below) 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 13 lb tumor removed Musculoskeletal Surgical History: Reports: Hip Replacement, Knee Replacement Other Musculoskeletal Surgeries/Procedures:: left hip. right knee Other Oncologic Surgeries/Procedures: latricia Social & Family History - Family History Family Medical History: Unobtainable - Tobacco Use Smoking Status *Q: Never Smoker - Caffeine Use Caffeine Use: Reports: Coffee, Soda - Recreational Drug Use Recreational Drug Use: Yes ED ROS GENERAL - Review of Systems Review Of Systems: See Below Constitutional: Reports: Fever HEENT: Reports: No Symptoms Respiratory: Reports: No Symptoms Cardiovascular: Reports: No Symptoms Endocrine: Reports: No Symptoms GI/Abdominal: Reports: Other (pain in rt abdoman. ) : Reports: No Symptoms Musculoskeletal: Reports: No Symptoms ED EXAM, GENERAL - Physical Exam Exam: See Below Free Text/Narrative:: pt arrived with a history of having a upper resp in September and not being able to have her chemo. She was going to thr clinic today for chemo and at the door she was found to have a temp . Pt does not feel different today other than she has had an increase in her rt abdomanal pain. Exam Limited By: No Limitations General Appearance: Alert, Anxious Ears: Normal TMs Throat/Mouth: Normal Inspection Head: Atraumatic Neck: Normal Inspection Respiratory/Chest: No Respiratory Distress Cardiovascular: Regular Rate, Rhythm GI/Abdominal: Tender, Other (pt has tendernerss in the rt lower abdoman. Her cat scan did show alot of stool. ) (Female) Exam: Deferred Rectal (Female) Exam: Deferred Back Exam: Normal Inspection Extremities: Normal Inspection Course - Vital Signs Last Recorded V/S: Last Vital Signs Temp 35.9 C L 10/10/19 11:20 Pulse 93 10/10/19 09:55 Resp 14 10/10/19 09:55 BP 133/87 10/10/19 09:55 Pulse Ox 98 10/10/19 09:55 - Orders/Labs/Meds Orders: Active Orders 24 hr Category Date Time Status Abdomen Pelvis w Cont [CT] Stat Exams 10/10/19 11:30 Taken Chest 1V Frontal [CR] Stat Exams 10/10/19 10:55 Taken CANCER ANTIGEN (CA) 125 Stat Lab 10/10/19 11:34 Received CULTURE BLOOD [BC] Urgent Lab 10/10/19 10:15 Received CULTURE BLOOD [BC] Urgent Lab 10/10/19 11:01 Received Heparin Sodium [Heparin Lock Flush 100 Units/ML] Med 10/10/19 10:12 Active 500 units FLUSH ASDIRECTED PRN Sodium Chloride 0.9% [Normal Saline] 1,000 ml Med 10/10/19 11:00 Active IV ASDIRECTED Sodium Chloride 0.9% [Normal Saline] 1,000 ml Med 10/10/19 11:45 Active IV ASDIRECTED Sodium Chloride 0.9% [Saline Flush] Med 10/10/19 11:47 Active 10 ml FLUSH ONETIME PRN Blood Culture x2 Reflex Set [OM.PC] Urgent Oth 10/10/19 10:50 Ordered Medication Orders Heparin Sodium (Porcine) (Heparin Lock Flush 100 Units/Ml) 500 units FLUSH ASDIRECTED PRN PRN Reason: Keep Vein Open Last Admin: 10/10/19 10:29 Dose: 500 units Sodium Chloride (Normal Saline) 1,000 mls @ 999 mls/hr IV ASDIRECTED AMRIK Last Admin: 10/10/19 11:01 Dose: 999 mls/hr Sodium Chloride (Normal Saline) 1,000 mls @ 999 mls/hr IV ASDIRECTED AMRIK Sodium Chloride (Saline Flush) 10 ml FLUSH ONETIME PRN PRN Reason: PER RADIOLOGY PROTOCOL Last Admin: 10/10/19 11:59 Dose: 10 ml Labs: Laboratory Tests 10/10/19 10/10/19 10/10/19 Range/Units 10:30 10:30 12:51 WBC 4.9 (4.5-11.0) K/uL RBC 3.41 (3.30-5.50) M/uL Hgb 9.7 L (12.0-15.0) g/dL Hct 31.6 L (36.0-48.0) % MCV 93 (80-98) fL MCH 28 (27-31) pg MCHC 31 L (32-36) % Plt Count 213 (150-400) K/uL Neut % (Auto) 65 (36-66) % Lymph % (Auto) 27 (24-44) % [place] % (Auto) 7 H (2-6) % Eos % (Auto) 0 L (2-4) % Baso % (Auto) 0 (0-1) % Sodium 141 (140-148) mmol/L Potassium 3.4 L (3.6-5.2) mmol/L Chloride 104 (100-108) mmol/L Carbon Dioxide 29 (21-32) mmol/L Anion Gap 11.4 (5.0-14.0) mmol/L BUN 11 D (7-18) mg/dL Creatinine 0.7 (0.6-1.0) mg/dL Est Cr Clr Drug Dosing 71.82 mL/min Estimated GFR (MDRD) > 60 (>60) Glucose 82 (74-106) mg/dL Calcium 8.2 L (8.5-10.1) mg/dL Total Bilirubin 0.4 (0.2-1.0) mg/dL AST 45 H D (15-37) U/L ALT 81 H (12-78) U/L Alkaline Phosphatase 163 H (46-116) U/L Total Protein 6.3 L (6.4-8.2) g/dL Albumin 2.8 L (3.4-5.0) g/dL Globulin 3.5 (2.3-3.5) g/dL Albumin/Globulin Ratio 0.8 L (1.2-2.2) Urine Color Yellow (YELLOW) Urine Appearance Clear (CLEAR) Urine pH 5.5 (5.0-8.0) Ur Specific [place] 1.020 (1.008-1.030) Urine Protein Negative (NEGATIVE) mg/dL Urine Glucose (UA) Negative (NEGATIVE) mg/dL Urine Ketones Negative (NEGATIVE) mg/dL Urine Occult Blood Negative (NEGATIVE) Urine Nitrite Negative (NEGATIVE) Urine Bilirubin Negative (NEGATIVE) Urine Urobilinogen 0.2 (0.2-1.0) EU/dL Ur Leukocyte Esterase Negative (NEGATIVE) Urine RBC Not seen (0-5) Urine WBC 0-5 (0-5) Ur Epithelial Cells Not seen Meds: Medications Generic Name Dose Route Start Last Admin Trade Name Freq PRN Reason Stop Dose Admin Heparin Sodium (Porcine) 500 units 10/10/19 10:12 10/10/19 10:29 Heparin Lock Flush 100 Units/Ml FLUSH 500 units ASDIRECTED PRN Administration Keep Vein Open Sodium Chloride 1,000 mls @ 999 mls/hr 10/10/19 11:00 10/10/19 11:01 Normal Saline IV 999 mls/hr ASDIRECTED AMRIK Administration Sodium Chloride 1,000 mls @ 999 mls/hr 10/10/19 11:45 Normal Saline IV ASDIRECTED AMRIK Sodium Chloride 10 ml 10/10/19 11:47 10/10/19 11:59 Saline Flush FLUSH 10 ml ONETIME PRN Administration PER RADIOLOGY PROTOCOL Discontinued Medications Generic Name Dose Route Start Last Admin Trade Name Freq PRN Reason Stop Dose Admin Sodium Chloride 80 mls @ 3 mls/sec 10/10/19 11:47 10/10/19 11:59 Normal Saline IV 10/10/19 11:48 3 mls/sec ONETIME ONE Administration Iopamidol 100 ml 10/10/19 11:47 10/10/19 12:00 Isovue-300 (61%) IV 80 ml . DIRECTED PRN Administration RADIOLOGY EXAM - Re-Assessments/Exams Free Text/Narrative Re-Assessment/Exam: 10/10/19 13:16 pt had a wbc of 4,000. She does not show a fever while in ER. She had a clear chest and a clear urione. Her cat scan of the abdoman pelvis looks unchanged. Pt did have 2 liters of fluid. She will be seen next week for chemo. She will not have a ride until sunday. Rasheeda from oncology was consulted . She wanted a ca125 which was drawn and the cat scan was done. Pt does have alot of stool and should use some miralax or milk of mag. to clear the colon. Departure - Departure Time of Disposition: 13:19 Disposition: Home, Self-Care 01 Condition: Fair Clinical Impression: Dehydration, Anemia Ovarian ca Qualifiers: Laterality: unspecified laterality Qualified Code(s): C56.9 - Malignant neoplasm of unspecified ovary - Discharge Information Referrals: Sandor Marquez MD [Primary Care Provider] - Forms: ED Department Discharge Care Plan Goals: appt for Sunday with oncology in [place], push fluids, watch temp and call if any spikes, will notify of the blood cultures. Pt hopefully can receive chemo on Sunday. Use miralax or MOM for constipation. Sepsis Event Note - Evaluation Sepsis Screening Result: No Definite Risk - Focused Exam Vital Signs: Vital Signs Temp Pulse Resp BP Pulse Ox 10/10/19 11:20 35.9 C L 10/10/19 09:55 36.9 C 93 14 133/87 98 10/10/19 09:54 36.9 C 93 14 133/87 98 Date Exam was Performed: 10/10/19 Time Exam was Performed: 13:25 - My Orders Last 24 Hours: My Active Orders 10/10/19 10:12 Heparin Sodium [Heparin Lock Flush 100 Units/ML] 500 units FLUSH ASDIRECTED PRN 10/10/19 10:15 CULTURE BLOOD [BC] Urgent 10/10/19 10:50 Blood Culture x2 Reflex Set [OM.PC] Urgent 10/10/19 10:55 Chest 1V Frontal [CR] Stat 10/10/19 11:00 Sodium Chloride 0.9% [Normal Saline] 1,000 ml IV ASDIRECTED 10/10/19 11:01 CULTURE BLOOD [BC] Urgent 10/10/19 11:30 Abdomen Pelvis w Cont [CT] Stat 10/10/19 11:34 CANCER ANTIGEN (CA) 125 Stat 10/10/19 11:45 Sodium Chloride 0.9% [Normal Saline] 1,000 ml IV ASDIRECTED 10/10/19 11:47 Sodium Chloride 0.9% [Saline Flush] 10 ml FLUSH ONETIME PRN - Assessment/Plan Last 24 Hours: My Active Orders 10/10/19 10:12 Heparin Sodium [Heparin Lock Flush 100 Units/ML] 500 units FLUSH ASDIRECTED PRN 10/10/19 10:15 CULTURE BLOOD [BC] Urgent 10/10/19 10:50 Blood Culture x2 Reflex Set [OM.PC] Urgent 10/10/19 10:55 Chest 1V Frontal [CR] Stat 10/10/19 11:00 Sodium Chloride 0.9% [Normal Saline] 1,000 ml IV ASDIRECTED 10/10/19 11:01 CULTURE BLOOD [BC] Urgent 10/10/19 11:30 Abdomen Pelvis w Cont [CT] Stat 10/10/19 11:34 CANCER ANTIGEN (CA) 125 Stat 10/10/19 11:45 Sodium Chloride 0.9% [Normal Saline] 1,000 ml IV ASDIRECTED 10/10/19 11:47 Sodium Chloride 0.9% [Saline Flush] 10 ml FLUSH ONETIME PRN
[2019-10-10] MEDS ORDERED: Sodium Chloride 0.9% 1,000 ML IV SCH ×2 (11:00→11:45)
[2019-10-10] MEDS ORDERED: Iopamidol 612 MG/ML 100 ML Bottle IV PRN (11:47)
[2019-10-10] MEDS ORDERED: Sodium Chloride 0.9% 80 ML IV ONE (11:47)
[2019-10-10] MEDS ORDERED: Sodium Chloride 0.9% 10 ML Syringe FLUSH PRN (11:47)
--- NOTE | 2019-10-10 14:15 | CR ---
CHEST: Portable 10/10/2019 at 11:10 a.M. CLINICAL HISTORY:Fever COMPARISON:07/18/2019 FINDINGS: Heart size and pulmonary vascular normal. There are atherosclerotic changes in the aorta.. There is chronic elevation of the right hemidiaphragm. No infiltrate effusion or pneumothorax seen. There is an [id number] catheter from the right jugular approach. Tip is in the superior vena cava. Impression: Chronic elevation right hemidiaphragm Lungs are clear [id number]-Betv catheter in the superior vena cava.
--- NOTE | 2019-10-10 14:53 | CT ---
Abdomen Pelvis w Cont CLINICAL HISTORY: Abdominal pain, fever COMPARISON: 2014. TECHNIQUE: Axial tomographic images are obtained from the dome of the diaphragm to the pubic symphysis without IV contrast enhancement. No oral contrast was used. Auto dosage reduction and iterative reconstruction techniques employed. FINDINGS: The lung bases show some streaky atelectasis on the right. The liver has a large subcapsular predominantly fluid density collection along the lateral aspect of the right lobe. There are numerous low-attenuation heterogeneous lesions showing some peripheral enhancement in both lobes of the liver. There is ascites. There are loculated fluid collections in the mesentery. The gallbladder has been removed. The spleen has a normal size and shape. There has been previous gastric surgery. This is likely a bariatric surgery. The pancreas is poorly defined and appears atrophic. The adrenal glands appear normal. The kidneys are free of mass, stones or hydronephrosis. The aorta has a normal contour. There is no suspicious retroperitoneal adenopathy. Patient has a periumbilical ventral hernia containing small bowel. There is no evidence of suggest incarceration. There is moderate retained stool in the colon. Small bowel configuration is nonobstructive. IMPRESSION: Moderate diffuse and numerous loculated fluid collections throughout the abdomen and mesentery. There are low attenuation subcapsular fluid collections in the liver as well as numerous peripheral solid lesions. 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 This may be of ovarian origin. The neither ovary of the uterus is identified. Moderate fecal retention MTDD
== END 2019-10-10 13:59 | disposition home or self-care (01) ==
LOC: JP.ED 09:37
DX: D64.9 Anemia, unspecified (principal); E86.0 Dehydration; C56.9 Malignant neoplasm of unspecified ovary; Z88.5 Allergy status to narcotic agent; Z79.899 Other long term (current) drug therapy
CPT/HCPCS: 36415; 71045; 74177; 80053; 81001; 85025; 86304; 87040; 96360; 99285; J1642; J7030; J7050; Q9967; 99284

== ENCOUNTER 2019-10-20 23:30 | Observation (INO) | payer MEDICAID, OTHER ==
[2019-10-21] MEDS ORDERED: Sodium Chloride 0.9% 10 ML Syringe FLUSH PRN (00:11)
--- NOTE | 2019-10-21 00:21 | EDM.PDOC ---
ED HPI GENERAL MEDICAL PROBLEM - General Chief Complaint: General Stated Complaint: MEDICAL VIA [facility] Time Seen by Provider: 10/21/19 00:05 Source of Information: Reports: Patient, Family, Old Records, RN History Limitations: Reports: No Limitations - History of Present Illness INITIAL COMMENTS - FREE TEXT/NARRATIVE: 54 yo female with a pHx of ovarian CA awoke tonight confused and her brother that lives with her thinks she took her morning dose of medications early thinking it was morning. Has chronic pain that is not worse than usual. No recent illnesses reported. Onset Date: 10/20/19 Duration: Hour(s): (1-2), Constant Location: Reports: Head Quality: Reports: Other (pain not reported, rather confusion.) Severity: Moderate Improves with: Reports: None Worsens with: Reports: Other (uncertain) Context: Reports: Other (See HPI) Associated Symptoms: Reports: Confusion. Denies: Fever/Chills, Nausea/Vomiting Treatments RESPIRATORY MANAGER: Reports: Other (see below) (none) - Related Data Allergies Allergy/AdvReac Type Severity Reaction Status Date / Time codeine AdvReac Nausea Verified 10/20/19 23:39 Home Meds: Home Meds clonazePAM [Clonazepam] 2 mg PO Q6H PRN 07/17/13 [History] Gabapentin [Neurontin] 300 mg PO BEDTIME 10/08/18 [History] Ondansetron [Zofran ODT] 4 mg PO Q6H PRN 10/08/18 [History] Prochlorperazine [Compazine] 5 mg PO Q6H PRN 10/08/18 [History] Zolpidem Tartrate [Ambien] 5 mg PO BEDTIME 07/18/19 [History] HYDROmorphone [Dilaudid] 4 mg PO Q4H PRN #60 tablet 07/23/19 [Rx] Methadone 10 mg PO TID #42 tablet 07/23/19 [Rx] Past Medical History - Past Health History Medical/Surgical History: Denies Medical/Surgical History HEENT History: Reports: Impaired Vision Cardiovascular History: Reports: Other (See Below) Other Cardiovascular History: stress test December 2017 Respiratory History: Reports: PE Other Respiratory History: spring 2018 Gastrointestinal History: Reports: Cholelithiasis Genitourinary History: Reports: UTI, Recurrent FUNERAL HOME MANAGER History: Reports: Other FUNERAL HOME MANAGER History: hysterectomy 2012 Musculoskeletal History: Reports: Arthritis, Fracture Neurological History: Reports: Concussion Psychiatric History: Reports: Depression Other Psychiatric History: Adjustment disorder Hematologic History: Reports: Anemia, B12 Deficiency, Blood Transfusion(s), Iron Deficiency Oncologic (Cancer) History: Reports: Ovarian, Other (See Below) 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 13 lb tumor removed Musculoskeletal Surgical History: Reports: Hip Replacement, Knee Replacement Other Musculoskeletal Surgeries/Procedures:: left hip. right knee Other Oncologic Surgeries/Procedures: latricia Dermatological Surgical History: Reports: None Social & Family History - Family History Family Medical History: Unobtainable - Tobacco Use Smoking Status *Q: Never Smoker - Caffeine Use Caffeine Use: Reports: Coffee, Soda - Recreational Drug Use Recreational Drug Use: No ED ROS GENERAL - Review of Systems Review Of Systems: See Below Constitutional: Reports: No Symptoms HEENT: Reports: No Symptoms Respiratory: Reports: No Symptoms Cardiovascular: Reports: No Symptoms GI/Abdominal: Reports: No Symptoms : Reports: No Symptoms Musculoskeletal: Reports: No Symptoms Skin: Reports: No Symptoms Neurological: Reports: Confusion Psychiatric: Reports: No Symptoms ED EXAM, GENERAL - Physical Exam Exam: See Below Exam Limited By: No Limitations General Appearance: Alert, No Apparent Distress, Thin Eye Exam: Bilateral Eye: Normal Inspection Ears: Normal External Exam, Normal Canal, Hearing Grossly Normal, Normal TMs Ear Exam: Bilateral Ear: Auricle Normal, Canal Normal, TM normal Nose: Normal Inspection, No Blood Throat/Mouth: Normal Inspection, Normal Lips, Normal Oropharynx, Normal Voice, No Airway Compromise Head: Atraumatic, Normocephalic Neck: Normal Inspection Respiratory/Chest: No Respiratory Distress, Lungs Clear, Normal Breath Sounds, No Accessory Muscle Use Cardiovascular: Regular Rate, Rhythm, No Edema, Other (port present on her upper chest) GI/Abdominal: Normal Bowel Sounds, Soft, Non-Tender Back Exam: Normal Inspection. No: CVA Tenderness (R), CVA Tenderness (L) Extremities: Normal Inspection, Normal Range of Motion, Non-Tender, No Pedal Edema Neurological: Alert, CN II-XII Intact, No Motor/Sensory Deficits, Confused, Other (slightly restless) Skin Exam: Warm, Dry, Intact, Normal Color, No Rash Course - Vital Signs Text/Narrative:: Mason called @ 0155h Last Recorded V/S: Last Vital Signs Temp 35.5 C L 10/20/19 23:52 Pulse 90 10/21/19 01:24 Resp 12 10/21/19 01:24 BP 136/85 10/21/19 01:24 Pulse Ox 99 10/21/19 01:24 - Orders/Labs/Meds Orders: Active Orders 24 hr Category Date Time Status UA W/MICROSCOPIC [URIN] Stat Lab 10/21/19 00:12 Ordered Sodium Chloride 0.9% [Saline Flush] Med 10/21/19 00:11 Active 10 ml FLUSH ASDIRECTED PRN Saline Lock Insert [OM.PC] Routine Oth 10/21/19 00:11 Ordered Medication Orders Sodium Chloride (Saline Flush) 10 ml FLUSH ASDIRECTED PRN PRN Reason: Keep Vein Open Last Admin: 10/21/19 00:41 Dose: 10 ml Labs: Laboratory Tests 10/21/19 10/21/19 10/21/19 Range/Units 00: 00:20 00:20 WBC 5.7 (4.5-11.0) K/uL RBC 3.78 (3.30-5.50) M/uL Hgb 10.5 L (12.0-15.0) g/dL Hct 34.7 L (36.0-48.0) % MCV 92 (80-98) fL MCH 28 (27-31) pg MCHC 30 L (32-36) % Plt Count 289 (150-400) K/uL Sodium 140 (140-148) mmol/L Potassium 3.5 L (3.6-5.2) mmol/L Chloride 101 (100-108) mmol/L Carbon Dioxide 26 (21-32) mmol/L Anion Gap 16.5 H (5.0-14.0) mmol/L BUN 12 (7-18) mg/dL Creatinine 0.8 (0.6-1.0) mg/dL Est Cr Clr Drug Dosing 62.84 mL/min Estimated GFR (MDRD) > 60 (>60) Glucose 114 H (74-106) mg/dL Lactic Acid (0.4-2.0) mmol/L Calcium 8.8 (8.5-10.1) mg/dL Total Bilirubin 0.5 (0.2-1.0) mg/dL AST 20 (15-37) U/L ALT 55 (12-78) U/L Alkaline Phosphatase 158 H (46-116) U/L Troponin I < 0.017 (0.000-0.056) ng/mL Total Protein 7.4 (6.4-8.2) g/dL Albumin 3.6 (3.4-5.0) g/dL Globulin 3.8 H (2.3-3.5) g/dL Albumin/Globulin Ratio 1.0 L (1.2-2.2) Ethyl Alcohol < 3 mg/dL 10/21/19 Range/Units 00:20 WBC (4.5-11.0) K/uL RBC (3.30-5.50) M/uL Hgb (12.0-15.0) g/dL Hct (36.0-48.0) % MCV (80-98) fL MCH (27-31) pg MCHC (32-36) % Plt Count (150-400) K/uL Sodium (140-148) mmol/L Potassium (3.6-5.2) mmol/L Chloride (100-108) mmol/L Carbon Dioxide (21-32) mmol/L Anion Gap (5.0-14.0) mmol/L BUN (7-18) mg/dL Creatinine (0.6-1.0) mg/dL Est Cr Clr Drug Dosing mL/min Estimated GFR (MDRD) (>60) Glucose (74-106) mg/dL Lactic Acid 1.9 (0.4-2.0) mmol/L Calcium (8.5-10.1) mg/dL Total Bilirubin (0.2-1.0) mg/dL AST (15-37) U/L ALT (12-78) U/L Alkaline Phosphatase (46-116) U/L Troponin I (0.000-0.056) ng/mL Total Protein (6.4-8.2) g/dL Albumin (3.4-5.0) g/dL Globulin (2.3-3.5) g/dL Albumin/Globulin Ratio (1.2-2.2) Ethyl Alcohol mg/dL Meds: Medications Generic Name Dose Route Start Last Admin Trade Name Harry PRN Reason Stop Dose Admin Sodium Chloride 10 ml 10/21/19 00:11 10/21/19 00:41 Saline Flush FLUSH 10 ml ASDIRECTED PRN Administration Keep Vein Open Discontinued Medications Generic Name Dose Route Start Last Admin Trade Name Harry PRN Reason Stop Dose Admin Midazolam HCl 2 mg 10/21/19 00:36 10/21/19 00:41 Versed 1 Mg/Ml IVPUSH 10/21/19 00:37 2 mg ONETIME ONE Administration Midazolam HCl 2 mg 10/21/19 01:04 10/21/19 01:23 Versed 1 Mg/Ml IVPUSH 10/21/19 01:05 2 mg ONETIME ONE Administration - Radiology Interpretation Free Text/Narrative:: Head CT scan- IMPRESSION: No acute abnormality. CT Results Date: 10/21/19 CT Results Time: 01:49 Departure - Departure Time of Disposition: 02:10 Disposition: Admitted As Inpatient 65 Condition: Fair Clinical Impression: Acute confusion - Discharge Information *PRESCRIPTION DRUG MONITORING PROGRAM REVIEWED*: Not Applicable *COPY OF PRESCRIPTION DRUG MONITORING REPORT IN PATIENT KAYLEN: Not Applicable Referrals: PCP,None [Primary Care Provider] - Forms: ED Department Discharge Sepsis Event Note - Evaluation Sepsis Screening Result: No Definite Risk - Focused Exam Vital Signs: Vital Signs Temp Pulse Resp BP Pulse Ox 10/21/19 01:24 90 12 136/85 99 10/21/19 00:40 87 12 141/92 H 100 10/20/19 23:52 35.5 C L 100 14 139/89 99 Date Exam was Performed: 10/21/19 Time Exam was Performed: 01:49 - My Orders Last 24 Hours: My Active Orders 10/21/19 00:11 Sodium Chloride 0.9% [Saline Flush] 10 ml FLUSH ASDIRECTED PRN Saline Lock Insert [OM.PC] Routine 10/21/19 00:12 UA W/MICROSCOPIC [URIN] Stat - Assessment/Plan Last 24 Hours: My Active Orders 10/21/19 00:11 Sodium Chloride 0.9% [Saline Flush] 10 ml FLUSH ASDIRECTED PRN Saline Lock Insert [OM.PC] Routine 10/21/19 00:12 UA W/MICROSCOPIC [URIN] Stat
[2019-10-21] MEDS ORDERED: Midazolam 1 MG/ML 2 ML SDV IVPUSH ONE ×2 (00:36→01:04)
--- NOTE | 2019-10-21 01:47 | CRLCT ---
INDICATION: Confusion, metastatic ovarian cancer TECHNIQUE: Head CT without contrast. COMPARISON: None FINDINGS: CSF spaces: Within normal limits for age. Brain parenchyma: Normal oscar-white junction. No sign of mass, hemorrhage, or midline shift. Skull base and calvarium: The visualized paranasal sinuses and mastoid air cells demonstrate no acute or significant findings. The visualized orbits are grossly unremarkable. No skull fractures. IMPRESSION: No acute abnormality. Please note that all CT scans at this facility use dose modulation, iterative reconstruction, and/or weight-based dosing when appropriate to reduce radiation dose to as low as reasonably achievable. Dictated by Nory Rogers MD @ Oct 21 2019 1:43AM Signed by Dr. Nory Rogers @ Oct 21 2019 1:45AM
--- NOTE | 2019-10-21 03:44 | PCM.HP.2 ---
H&P History of Present Illness - General Date of Service: 10/20/19 Admit Problem/Dx: Admission Diagnosis/Problem Admission Diagnosis/Problem Confusion Source of Information: Family, Provider, RN History Limitations: Reports: Altered Mental Status - History of Present Illness Initial Comments - Free Text/Narative: INITIAL COMMENTS - FREE TEXT/NARRATIVE: 54 yo female with a pHx of ovarian CA awoke tonight confused and her brother that lives with her thinks she took her morning dose of medications early thinking it was morning. Has chronic pain that is not worse than usual. No recent illnesses reported. Onset Date: 10/20/19 Onset of Symptoms: Reports: Sudden Duration of Symptoms: Reports: Hour(s): Location: Reports: Generalized Quality: Reports: Other (acute confusion and agitation) Severity: Severe Improves with: Reports: None Worsens with: Reports: None Context: Reports: Other (ovarian cancer stage 4, prescribed multi medication for pain and anxiety. question over medication) Associated Symptoms: Reports: Other (reports feeling cold.) - Related Data Allergies/Adverse Reactions: Allergies Allergy/AdvReac Type Severity Reaction Status Date / Time codeine AdvReac Nausea Verified 10/20/19 23:39 Home Medications: Home Meds clonazePAM [Clonazepam] 2 mg PO Q6H PRN 07/17/13 [History] Gabapentin [Neurontin] 300 mg PO BEDTIME 10/08/18 [History] Ondansetron [Zofran ODT] 4 mg PO Q6H PRN 10/08/18 [History] Prochlorperazine [Compazine] 5 mg PO Q6H PRN 10/08/18 [History] Zolpidem Tartrate [Ambien] 5 mg PO BEDTIME 07/18/19 [History] HYDROmorphone [Dilaudid] 4 mg PO Q4H PRN #60 tablet 07/23/19 [Rx] Methadone 10 mg PO TID #42 tablet 07/23/19 [Rx] Potassium Chloride 20 meq PO DAILY 10/21/19 [History] Past Medical History - Past Health History Medical/Surgical History: Denies Medical/Surgical History HEENT History: Reports: Impaired Vision Cardiovascular History: Reports: Other (See Below) Other Cardiovascular History: stress test December 2017 Respiratory History: Reports: PE Other Respiratory History: spring 2018 Gastrointestinal History: Reports: Cholelithiasis Genitourinary History: Reports: UTI, Recurrent LOG DATA TECHNICIAN History: Reports: Other OB/BYN History: hysterectomy 2012 Musculoskeletal History: Reports: Arthritis, Fracture Neurological History: Reports: Concussion Psychiatric History: Reports: Depression Other Psychiatric History: Adjustment disorder Hematologic History: Reports: Anemia, B12 Deficiency, Blood Transfusion(s), Iron Deficiency Oncologic (Cancer) History: Reports: Ovarian, Other (See Below) 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 13 lb tumor removed Musculoskeletal Surgical History: Reports: Hip Replacement, Knee Replacement Other Musculoskeletal Surgeries/Procedures:: left hip. right knee Other Oncologic Surgeries/Procedures: latricia Dermatological Surgical History: Reports: None Social & Family History - Family History Family Medical History: Unobtainable - Tobacco Use Smoking Status *Q: Never Smoker - Caffeine Use Caffeine Use: Reports: Coffee, Soda - Recreational Drug Use Recreational Drug Use: No - Living Situation & Occupation Living situation: Reports: Single, with Family (disabled by stage 4 ovarian cancer, now living with her Brother Daquan who is her Guardian-roller staker in [place], [place]. She has two grown children age 26 yr. 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[employer].) Occupation: Disabled H&P Review of Systems - Review of Systems: Review Of Systems: Unable To Obtain (acute confusion) Reason Not Obtained: altered mental status, acute confusion Gastrointestinal: Reports: Abdominal Pain (reports in generalized pain) Psychiatric: Reports: Confusion, Anxiety, Agitation Neurological: Reports: Confusion Exam - Exam Exam: See Below - Vital Signs Vital Signs: Last Vital Signs Temp 35.5 C L 10/20/19 23:52 Pulse 74 10/21/19 03:38 Resp 12 10/21/19 03:38 BP 144/90 H 10/21/19 03:38 Pulse Ox 99 10/21/19 03:38 Weight: 53.07 kg - Exam Quality Assessment: DVT Prophylaxis (hx of PE/DVT 2019) General: Alert, Moderate Distress, Other (thin, pale, restless female.) HEENT: PERRLA, Conjunctiva Clear, EOMI, Hearing Intact, Glasses (did not bring glasses with her.), Other (mouth is dry) Neck: Supple, Trachea Midline, Full Range of Motion Lungs: Clear to Auscultation, Normal Respiratory Effort Cardiovascular: Regular Rate, Regular Rhythm, Normal S1, Normal S2 GI/Abdominal Exam: Soft, Tender (generalized ), Abnormal Bowel Sounds ( hypoactive) (Female) Exam: Normal External Exam Rectal (Female) Exam: Deferred Back Exam: Full Range of Motion Extremities: Normal Range of Motion, Leg Pain (right knee pain without signs of edema or injury), Other (thin arms and legs. equal movement and tone.) Skin: Dry, Intact, Cool (hands and feet), Other (coccyx- at risk for skin break down due weight loss) Neurological: Reflexes Equal Bilateral, Strength Equal Bilateral Neuro Extensive - Mental Status: Alert, Disorientation to Person, Disorientation to Time, Inattentive, Other (reports its 08-23-2019, does know her name, birthdate, knows she is in hospital.) Psychiatric: Alert, Anxious, Agitated (trying to put head thru the bed rails, picking at her skin and monitors. sitting up and laying down repetitive), Other (restless, agitation, confused) - Patient Data Lab Results Last 24 hrs: Laboratory Results - last 24 hr 10/21/19 10/21/19 10/21/19 Range/Units 00:12 00:20 00:20 WBC (4.5-11.0) K/uL RBC (3.30-5.50) M/uL Hgb (12.0-15.0) g/dL Hct (36.0-48.0) % MCV (80-98) fL MCH (27-31) pg MCHC (32-36) % Plt Count (150-400) K/uL Sodium 140 (140-148) mmol/L Potassium 3.5 L (3.6-5.2) mmol/L Chloride 101 (100-108) mmol/L Carbon Dioxide 26 (21-32) mmol/L Anion Gap 16.5 H (5.0-14.0) mmol/L BUN 12 (7-18) mg/dL Creatinine 0.8 (0.6-1.0) mg/dL Est Cr Clr Drug Dosing 62.84 mL/min Estimated GFR (MDRD) > 60 (>60) Glucose 114 H (74-106) mg/dL Lactic Acid (0.4-2.0) mmol/L Calcium 8.8 (8.5-10.1) mg/dL Total Bilirubin 0.5 (0.2-1.0) mg/dL AST 20 (15-37) U/L ALT 55 (12-78) U/L Alkaline Phosphatase 158 H (46-116) U/L Troponin I < 0.017 (0.000-0.056) ng/mL Total Protein 7.4 (6.4-8.2) g/dL Albumin 3.6 (3.4-5.0) g/dL Globulin 3.8 H (2.3-3.5) g/dL Albumin/Globulin Ratio 1.0 L (1.2-2.2) Urine Color Yellow (YELLOW) Urine Appearance Clear (CLEAR) Urine pH 7.0 (5.0-8.0) Ur Specific [place] 1.015 (1.008-1.030) Urine Protein Negative (NEGATIVE) mg/dL Urine Glucose (UA) Negative (NEGATIVE) mg/dL Urine Ketones Negative (NEGATIVE) mg/dL Urine Occult Blood Negative (NEGATIVE) Urine Nitrite Negative (NEGATIVE) Urine Bilirubin Negative (NEGATIVE) Urine Urobilinogen 0.2 (0.2-1.0) EU/dL Ur Leukocyte Esterase Trace H (NEGATIVE) Urine RBC 0-5 (0-5) Urine WBC 0-5 (0-5) Ur Epithelial Cells Few Amorphous Sediment Not seen Urine Bacteria Few Urine Mucus Not seen Urine Opiates Screen (NEGATIVE) Ur Oxycodone Screen (NEGATIVE) Urine Methadone Screen (NEGATIVE) Ur Propoxyphene Screen (NEGATIVE) Ur Barbiturates Screen (NEGATIVE) Ur Tricyclics Screen (NEGATIVE) Ur Phencyclidine Scrn (NEGATIVE) Ur Amphetamine Screen (NEGATIVE) U Methamphetamines Scrn (NEGATIVE) Urine MDMA Screen (NEGATIVE) U Benzodiazepines Scrn (NEGATIVE) U Cocaine Metab Screen (NEGATIVE) U Marijuana (THC) Screen (NEGATIVE) Ethyl Alcohol < 3 mg/dL 10/21/19 10/21/19 10/21/19 Range/Units 00:20 00:20 02:28 WBC 5.7 (4.5-11.0) K/uL RBC 3.78 (3.30-5.50) M/uL Hgb 10.5 L (12.0-15.0) g/dL Hct 34.7 L (36.0-48.0) % MCV 92 (80-98) fL MCH 28 (27-31) pg MCHC 30 L (32-36) % Plt Count 289 (150-400) K/uL Sodium (140-148) mmol/L Potassium (3.6-5.2) mmol/L Chloride (100-108) mmol/L Carbon Dioxide (21-32) mmol/L Anion Gap (5.0-14.0) mmol/L BUN (7-18) mg/dL Creatinine (0.6-1.0) mg/dL Est Cr Clr Drug Dosing mL/min Estimated GFR (MDRD) (>60) Glucose (74-106) mg/dL Lactic Acid 1.9 (0.4-2.0) mmol/L Calcium (8.5-10.1) mg/dL Total Bilirubin (0.2-1.0) mg/dL AST (15-37) U/L ALT (12-78) U/L Alkaline Phosphatase (46-116) U/L Troponin I (0.000-0.056) ng/mL Total Protein (6.4-8.2) g/dL Albumin (3.4-5.0) g/dL Globulin (2.3-3.5) g/dL Albumin/Globulin Ratio (1.2-2.2) Urine Color (YELLOW) Urine Appearance (CLEAR) Urine pH (5.0-8.0) Ur Specific [place] (1.008-1.030) Urine Protein (NEGATIVE) mg/dL Urine Glucose (UA) (NEGATIVE) mg/dL Urine Ketones (NEGATIVE) mg/dL Urine Occult Blood (NEGATIVE) Urine Nitrite (NEGATIVE) Urine Bilirubin (NEGATIVE) Urine Urobilinogen (0.2-1.0) EU/dL Ur Leukocyte Esterase (NEGATIVE) Urine RBC (0-5) Urine WBC (0-5) Ur Epithelial Cells Amorphous Sediment Urine Bacteria Urine Mucus Urine Opiates Screen Negative (NEGATIVE) Ur Oxycodone Screen Presumptive positive H (NEGATIVE) Urine Methadone Screen Negative (NEGATIVE) Ur Propoxyphene Screen Negative (NEGATIVE) Ur Barbiturates Screen Negative (NEGATIVE) Ur Tricyclics Screen Negative (NEGATIVE) Ur Phencyclidine Scrn Negative (NEGATIVE) Ur Amphetamine Screen Negative (NEGATIVE) U Methamphetamines Scrn Negative (NEGATIVE) Urine MDMA Screen Negative (NEGATIVE) U Benzodiazepines Scrn Negative (NEGATIVE) U Cocaine Metab Screen Negative (NEGATIVE) U Marijuana (THC) Screen Negative (NEGATIVE) Ethyl Alcohol mg/dL Result Diagrams: 10/21/19 00:20 10/21/19 00:20 Sepsis Event Note - Evaluation Sepsis Screening Result: No Definite Risk - Focused Exam Vital Signs: Vital Signs Temp Pulse Resp BP Pulse Ox 10/21/19 03:38 74 12 144/90 H 99 10/21/19 02:30 68 12 139/88 99 10/21/19 01:24 90 12 136/85 99 10/21/19 00:40 87 12 141/92 H 100 10/20/19 23:52 35.5 C L 100 14 139/89 99 Date Exam was Performed: 10/21/19 Time Exam was Performed: 04:19 - Problem List (1) Acute confusion SNOMED Code(s): 630747250 ICD Code: R41.0 - DISORIENTATION, UNSPECIFIED Status: Acute Priority: High Current Visit: Yes (2) Ovarian cancer Status: Chronic Priority: High Current Visit: Yes Qualifiers: Laterality: unspecified laterality Qualified Code(s): C56.9 - Malignant neoplasm of unspecified ovary (3) Essential hypertension SNOMED Code(s): 19084613 ICD Code: I10 - ESSENTIAL (PRIMARY) HYPERTENSION Status: Chronic Priority : Low Current Visit: No (4) UNIQUE (generalized anxiety disorder) SNOMED Code(s): 83814300 ICD Code: F41.1 - GENERALIZED ANXIETY DISORDER Status: Chronic Priority: Low Current Visit: No (5) Chronic pulmonary embolism SNOMED Code(s): 329480591668801 ICD Code: I27.82 - CHRONIC PULMONARY EMBOLISM Status: Acute Priority: Medium Current Visit: Yes Qualifiers: Pulmonary embolism type: unspecified Acute cor pulmonale presence: unspecified Qualified Code(s): I27.82 - Chronic pulmonary embolism (6) Bariatric surgery status SNOMED Code(s): 001771664, 515339541, 911945507 ICD Code: Z98.84 - BARIATRIC SURGERY STATUS Status: Chronic Priority: Low Current Visit: No Problem List Initiated/Reviewed/Updated: Yes Orders Last 24hrs: Active Orders 24 hr Category Date Time Status Patient Status Manage Transfer [TRANSFER] Routine ADT 10/21/19 03:11 Active Potassium Chloride [Klor-Con M20] Med 10/21/19 09:00 Ordered 20 meq PO DAILY Rivaroxaban [Xarelto] Med 10/21/19 09:00 Ordered 20 mg PO DAILY Sodium Chloride 0.9% [Saline Flush] Med 10/21/19 00:11 Active 10 ml FLUSH ASDIRECTED PRN Saline Lock Insert [OM.PC] Routine Oth 10/21/19 00:11 Ordered Resuscitation Status Routine Resus Stat 10/21/19 03:13 Ordered Medication Orders Potassium Chloride (Klor-Con M20) 20 meq PO DAILY AMRIK Rivaroxaban (Xarelto) 20 mg PO DAILY AMRIK Sodium Chloride (Saline Flush) 10 ml FLUSH ASDIRECTED PRN PRN Reason: Keep Vein Open Last Admin: 10/21/19 00:41 Dose: 10 ml Assessment/Plan Comment:: ASSESSMENT AND PLAN- Confusion acute This is a 54 year old female arrives to ER via ambulance with acute onset confusion. Her Brother who is her Guardian Precision Grinder reports she was her normal self all day, went to bed, then woke up confused and agitated. Current ovarian cancer stage 4 with last chemo therapy on Sunday. She is treated for pain and anxiety. Her Brother Daquan reports Mayuri is in charge of her own medication administration and brought her current medication bottles with her- Methadone, Gabapentin, Ambien, Dilaudid, Clonazepam, potassium, full bottle of Cipro and Compazine. Dilaudid 2mg filled on 09-23-2019 with #240 tabs is completely empty. Brother and his 18 year old Son are her caretakers. Brother express exhaustion with taking care of his disabled elderly Mother and Sister with end stage ovarian cancer. He also works two multimedia project manager jobs to support everyone. Request help or placement of his Sister in a home if confusion is permanent part of the cancer. Labs: CBC- wbc 5.7, hgb 10.5, plt 289, Chem panel- Na+140, K+ 3.5, glucose 114, alk phos 158, lactic acid 1.9, urine with micro clear, Urine drug screen negative for all drugs except oxycodone. Alcohol level <.[address] negative for acute process. Confusion of unknown cause. -IV fluids Normal Saline 125ml/hr -neuro check -telemetry -monitor for safety -repeat labs in am Current ovarian cancer stage 4 with mets to lymph glands. Mayuri is now living with her Brother and needs assistance with meals and daily care. -IV fluids -IV Dilaudid 1 mg every 2 hours prn pain -IV Ativan 1 mg every 4 hours -consult to Stained Glass Installer HTN -continue medication Chronic Pulmonary Embolism -Xarelto 20 mg po daily MAINTENANCE ISSUES -DVT prophylaxis; scd -GI prophylaxis; IV Protonix 40mg daily -Rendon catheter; not indicated -Nutrition; regular diet -Nicotine dependence; not required -consult to Stained Glass Installer CODE STATUS-FULL ADMISSION STATUS-this patient will be admitted to observation status, expect no more than a one night hospital stay for evaluation and management of problems as outlined above. DISPOSITION-anticipate discharge to home or Detention or skilled facility after the hospital stay. PRIMARY CARE PROVIDER-Dr. Marquez, [facility] HOSPITALIST- Dr. Huber - Mortality Measure Prognosis:: Good
[2019-10-21] MEDS ORDERED: HYDROmorphone 1 MG/ML Syringe IVPUSH PRN (04:08)
[2019-10-21] MEDS ORDERED: LORazepam 2 MG/ML SDV IV PRN (04:08)
[2019-10-21] MEDS ORDERED: Docusate Sodium 100 MG Cap PO PRN (04:08)
[2019-10-21] MEDS ORDERED: Sodium Chloride 0.9% 1,000 ML IV SCH (04:08)
[2019-10-21] MEDS ORDERED: Pantoprazole 40 MG Vial IVPUSH SCH (04:08)
[2019-10-21] MEDS ORDERED: Ondansetron 4 MG/2 ML SDV IVPUSH PRN (04:08)
[2019-10-21] MEDS ORDERED: Bisacodyl 5 MG Tab PO PRN (04:08)
[2019-10-21] MEDS ORDERED: Potassium Chloride Riders 40 MEQ in Premix Bag 1 BAG IV ONE (08:25)
[2019-10-21] MEDS ORDERED: Potassium Chloride 20 MEQ in Premix Bag 1 BAG IV SCH (09:00)
[2019-10-21] MEDS ORDERED: Rivaroxaban 10 MG Tab PO SCH (09:00)
[2019-10-21] MEDS ORDERED: Potassium Chloride 20 MEQ Tab.ER PO SCH ×2 (09:00→12:00)
[2019-10-21] MEDS ORDERED: Methadone 10 MG Tab PO SCH (09:00)
[2019-10-21] MEDS ORDERED: Potassium Chloride 20 MEQ Tab.ER PO ONE (09:00)
--- NOTE | 2019-10-21 10:50 | PCM.DCSUM1 ---
Discharge Summary - Hospital Course Brief History: Ms. Urena is a 54-year-old woman with known metastatic ovarian cancer admitted through the emergency department with acute onset of confusion. - Discharge Data Discharge Date: 10/21/19 Discharge Disposition: Home, Self-Care 01 Condition: Fair - Referral to Home Health Primary Care Physician: PCP None - Discharge Diagnosis/Problem(s) (1) Acute confusion SNOMED Code(s): 572041366 ICD Code: R41.0 - DISORIENTATION, UNSPECIFIED Status: Acute Priority: High Current Visit: Yes (2) Chronic pulmonary embolism SNOMED Code(s): 805491230999851 ICD Code: I27.82 - CHRONIC PULMONARY EMBOLISM Status: Acute Priority: Medium Current Visit: Yes Qualifiers: Pulmonary embolism type: unspecified Acute cor pulmonale presence: unspecified Qualified Code(s): I27.82 - Chronic pulmonary embolism (3) Metastatic malignant neoplasm to ovary Status: Chronic Current Visit: No Qualifiers: Laterality: unspecified laterality Qualified Code(s): C79.60 - Secondary malignant neoplasm of unspecified ovary - Patient Summary/Data Consults: Consultations 10/21/19 04:08 Consult to Case Management/Channeler Runner [CONS] Routine Comment: Physician Instructions: Service(s) to be Consulted: Case Management Reason for Consult: home care or acute rehab Special Instructions: lives with Brother due to ovarian cancer stage 4, she needs assistance with ADL, He needs assistance at home or needs assisted placement. Hospital Course: Ms. Urena is a 54-year-old woman with a known history of metastatic ovarian cancer. She was admitted through the emergency department with acute onset of confusion. Evaluation in the emergency department was unremarkable for specific cause of confusion. CT scan of the head showed no evidence of metastatic disease. There was no evidence of underlying infection or significant metabolic abnormality. Her brother reported that she may have taken an extra dose of methadone earlier in the evening. She was monitored through the night, by the morning of discharge was more clear, alert and oriented x3. She was otherwise found to be hemodynamically stable and had had no significant temperature elevations. I recommended that we monitor her for an additional 24 hours which she refused and requested that she be discharged home this morning. Activity will be as tolerated and she will resume her usual diet. Follow-up appointment should be scheduled with her primary care provider within 1 week. Follow-up with oncology is already scheduled. - Patient Instructions Diet: Usual Diet as Tolerated Activity: As Tolerated Other/Special Instructions: Please schedule follow-up appointment with primary care provider within 1 week. Follow-up with oncology as previously scheduled. - Discharge Plan *PRESCRIPTION DRUG MONITORING PROGRAM REVIEWED*: Not Applicable *COPY OF PRESCRIPTION DRUG MONITORING REPORT IN PATIENT KAYLEN: Not Applicable Home Medications: Home Meds clonazePAM [Clonazepam] 2 mg PO Q6H PRN 07/17/13 [History] Gabapentin [Neurontin] 300 mg PO BEDTIME 10/08/18 [History] Ondansetron [Zofran ODT] 4 mg PO Q6H PRN 10/08/18 [History] Prochlorperazine [Compazine] 5 mg PO Q6H PRN 10/08/18 [History] Zolpidem Tartrate [Ambien] 5 mg PO BEDTIME 07/18/19 [History] HYDROmorphone [Dilaudid] 4 mg PO Q4H PRN #60 tablet 07/23/19 [Rx] Methadone 10 mg PO TID #42 tablet 07/23/19 [Rx] Potassium Chloride 20 meq PO DAILY 10/21/19 [History] - Discharge Summary/Plan Comment DC Time >30 min.: No - Patient Data Vitals - Most Recent: Last Vital Signs Temp 96.7 F L 10/21/19 07:37 Pulse 77 10/21/19 07:37 Resp 16 10/21/19 07:37 BP 124/95 H 10/21/19 07:37 Pulse Ox 99 10/21/19 07:37 Weight - Most Recent: 116 lb 15.989 oz I&O - Last 24 hours: Intake & Output 10/20/19 10/21/19 10/21/19 22:59 06:59 14:59 Intake Total 360 Output Total 700 300 Balance -340 -300 Lab Results - Last 24 hrs: Laboratory Results - last 24 hr 10/21/19 10/21/19 10/21/19 Range/Units 00:12 00:20 00:20 WBC (4.5-11.0) K/uL RBC (3.30-5.50) M/uL Hgb (12.0-15.0) g/dL Hct (36.0-48.0) % MCV (80-98) fL MCH (27-31) pg MCHC (32-36) % Plt Count (150-400) K/uL Neut % (Auto) (36-66) % Lymph % (Auto) (24-44) % Morrison % (Auto) (2-6) % Eos % (Auto) (2-4) % Baso % (Auto) (0-1) % Sodium 140 (140-148) mmol/L Potassium 3.5 L (3.6-5.2) mmol/L Chloride 101 (100-108) mmol/L Carbon Dioxide 26 (21-32) mmol/L Anion Gap 16.5 H (5.0-14.0) mmol/L BUN 12 (7-18) mg/dL Creatinine 0.8 (0.6-1.0) mg/dL Est Cr Clr Drug Dosing 62.84 mL/min Estimated GFR (MDRD) > 60 (>60) Glucose 114 H (74-106) mg/dL Lactic Acid (0.4-2.0) mmol/L Calcium 8.8 (8.5-10.1) mg/dL Total Bilirubin 0.5 (0.2-1.0) mg/dL AST 20 (15-37) U/L ALT 55 (12-78) U/L Alkaline Phosphatase 158 H (46-116) U/L Troponin I < 0.017 (0.000-0.056) ng/mL Total Protein 7.4 (6.4-8.2) g/dL Albumin 3.6 (3.4-5.0) g/dL Globulin 3.8 H (2.3-3.5) g/dL Albumin/Globulin Ratio 1.0 L (1.2-2.2) Urine Color Yellow (YELLOW) Urine Appearance Clear (CLEAR) Urine pH 7.0 (5.0-8.0) Ur Specific [place] 1.015 (1.008-1.030) Urine Protein Negative (NEGATIVE) mg/dL Urine Glucose (UA) Negative (NEGATIVE) mg/dL Urine Ketones Negative (NEGATIVE) mg/dL Urine Occult Blood Negative (NEGATIVE) Urine Nitrite Negative (NEGATIVE) Urine Bilirubin Negative (NEGATIVE) Urine Urobilinogen 0.2 (0.2-1.0) EU/dL Ur Leukocyte Esterase Trace H (NEGATIVE) Urine RBC 0-5 (0-5) Urine WBC 0-5 (0-5) Ur Epithelial Cells Few Amorphous Sediment Not seen Urine Bacteria Few Urine Mucus Not seen Urine Opiates Screen (NEGATIVE) Ur Oxycodone Screen (NEGATIVE) Urine Methadone Screen (NEGATIVE) Ur Propoxyphene Screen (NEGATIVE) Ur Barbiturates Screen (NEGATIVE) Ur Tricyclics Screen (NEGATIVE) Ur Phencyclidine Scrn (NEGATIVE) Ur Amphetamine Screen (NEGATIVE) U Methamphetamines Scrn (NEGATIVE) Urine MDMA Screen (NEGATIVE) U Benzodiazepines Scrn (NEGATIVE) U Cocaine Metab Screen (NEGATIVE) U Marijuana (THC) Screen (NEGATIVE) Ethyl Alcohol < 3 mg/dL 10/21/19 10/21/19 10/21/19 Range/Units 00:20 00:20 02:28 WBC 5.7 (4.5-11.0) K/uL RBC 3.78 (3.30-5.50) M/uL Hgb 10.5 L (12.0-15.0) g/dL Hct 34.7 L (36.0-48.0) % MCV 92 (80-98) fL MCH 28 (27-31) pg MCHC 30 L (32-36) % Plt Count 289 (150-400) K/uL Neut % (Auto) (36-66) % Lymph % (Auto) (24-44) % Morrison % (Auto) (2-6) % Eos % (Auto) (2-4) % Baso % (Auto) (0-1) % Sodium (140-148) mmol/L Potassium (3.6-5.2) mmol/L Chloride (100-108) mmol/L Carbon Dioxide (21-32) mmol/L Anion Gap (5.0-14.0) mmol/L BUN (7-18) mg/dL Creatinine (0.6-1.0) mg/dL Est Cr Clr Drug Dosing mL/min Estimated GFR (MDRD) (>60) Glucose (74-106) mg/dL Lactic Acid 1.9 (0.4-2.0) mmol/L Calcium (8.5-10.1) mg/dL Total Bilirubin (0.2-1.0) mg/dL AST (15-37) U/L ALT (12-78) U/L Alkaline Phosphatase (46-116) U/L Troponin I (0.000-0.056) ng/mL Total Protein (6.4-8.2) g/dL Albumin (3.4-5.0) g/dL Globulin (2.3-3.5) g/dL Albumin/Globulin Ratio (1.2-2.2) Urine Color (YELLOW) Urine Appearance (CLEAR) Urine pH (5.0-8.0) Ur Specific [place] (1.008-1.030) Urine Protein (NEGATIVE) mg/dL Urine Glucose (UA) (NEGATIVE) mg/dL Urine Ketones (NEGATIVE) mg/dL Urine Occult Blood (NEGATIVE) Urine Nitrite (NEGATIVE) Urine Bilirubin (NEGATIVE) Urine Urobilinogen (0.2-1.0) EU/dL Ur Leukocyte Esterase (NEGATIVE) Urine RBC (0-5) Urine WBC (0-5) Ur Epithelial Cells Amorphous Sediment Urine Bacteria Urine Mucus Urine Opiates Screen Negative (NEGATIVE) Ur Oxycodone Screen Presumptive positive H (NEGATIVE) Urine Methadone Screen Negative (NEGATIVE) Ur Propoxyphene Screen Negative (NEGATIVE) Ur Barbiturates Screen Negative (NEGATIVE) Ur Tricyclics Screen Negative (NEGATIVE) Ur Phencyclidine Scrn Negative (NEGATIVE) Ur Amphetamine Screen Negative (NEGATIVE) U Methamphetamines Scrn Negative (NEGATIVE) Urine MDMA Screen Negative (NEGATIVE) U Benzodiazepines Scrn Negative (NEGATIVE) U Cocaine Metab Screen Negative (NEGATIVE) U Marijuana (THC) Screen Negative (NEGATIVE) Ethyl Alcohol mg/dL 10/21/19 10/21/19 Range/Units 05:35 05:35 WBC 6.0 (4.5-11.0) K/uL RBC 3.43 (3.30-5.50) M/uL Hgb 9.7 L (12.0-15.0) g/dL Hct 31.4 L (36.0-48.0) % MCV 92 (80-98) fL MCH 28 (27-31) pg MCHC 31 L (32-36) % Plt Count 261 (150-400) K/uL Neut % (Auto) 73 H (36-66) % Lymph % (Auto) 18 L (24-44) % Morrison % (Auto) 9 H (2-6) % Eos % (Auto) 0 L (2-4) % Baso % (Auto) 0 (0-1) % Sodium 140 (140-148) mmol/L Potassium 3.0 L (3.6-5.2) mmol/L Chloride 104 (100-108) mmol/L Carbon Dioxide 24 (21-32) mmol/L Anion Gap 15.0 H (5.0-14.0) mmol/L BUN 11 (7-18) mg/dL Creatinine 0.6 (0.6-1.0) mg/dL Est Cr Clr Drug Dosing 83.79 mL/min Estimated GFR (MDRD) > 60 (>60) Glucose 96 (74-106) mg/dL Lactic Acid (0.4-2.0) mmol/L Calcium 8.3 L (8.5-10.1) mg/dL Total Bilirubin (0.2-1.0) mg/dL AST (15-37) U/L ALT (12-78) U/L Alkaline Phosphatase (46-116) U/L Troponin I (0.000-0.056) ng/mL Total Protein (6.4-8.2) g/dL Albumin (3.4-5.0) g/dL Globulin (2.3-3.5) g/dL Albumin/Globulin Ratio (1.2-2.2) Urine Color (YELLOW) Urine Appearance (CLEAR) Urine pH (5.0-8.0) Ur Specific [place] (1.008-1.030) Urine Protein (NEGATIVE) mg/dL Urine Glucose (UA) (NEGATIVE) mg/dL Urine Ketones (NEGATIVE) mg/dL Urine Occult Blood (NEGATIVE) Urine Nitrite (NEGATIVE) Urine Bilirubin (NEGATIVE) Urine Urobilinogen (0.2-1.0) EU/dL Ur Leukocyte Esterase (NEGATIVE) Urine RBC (0-5) Urine WBC (0-5) Ur Epithelial Cells Amorphous Sediment Urine Bacteria Urine Mucus Urine Opiates Screen (NEGATIVE) Ur Oxycodone Screen (NEGATIVE) Urine Methadone Screen (NEGATIVE) Ur Propoxyphene Screen (NEGATIVE) Ur Barbiturates Screen (NEGATIVE) Ur Tricyclics Screen (NEGATIVE) Ur Phencyclidine Scrn (NEGATIVE) Ur Amphetamine Screen (NEGATIVE) U Methamphetamines Scrn (NEGATIVE) Urine MDMA Screen (NEGATIVE) U Benzodiazepines Scrn (NEGATIVE) U Cocaine Metab Screen (NEGATIVE) U Marijuana (THC) Screen (NEGATIVE) Ethyl Alcohol mg/dL Med Orders - Current: Current Medications Bisacodyl (Dulcolax) 5 mg PO DAILY PRN PRN Reason: Constipation Docusate Sodium (Colace) 100 mg PO BID PRN PRN Reason: Constipation Gabapentin (Neurontin) 300 mg PO BEDTIME [facility] Hydromorphone HCl (Dilaudid) 1 mg IVPUSH Q2H PRN PRN Reason: Abdominal Pain Sodium Chloride (Normal Saline) 1,000 mls @ 125 mls/hr IV ASDIRECTED [facility] Last Admin: 10/21/19 04:28 Dose: 125 mls/hr Potassium Chloride 20 meq/ (Premix) 100 mls @ 50 mls/hr IV Q2H [facility] Stop: 10/21/19 12:59 Last Admin: 10/21/19 09:05 Dose: 50 mls/hr Lorazepam (Ativan) 1 mg IV Q4H PRN PRN Reason: Agitation Methadone HCl (Methadone) 10 mg PO TID [facility] Last Admin: 10/21/19 09:14 Dose: 10 mg Ondansetron HCl (Zofran) 4 mg IVPUSH Q4H PRN PRN Reason: Nausea/Vomiting Last Admin: 10/21/19 09:15 Dose: 4 mg Pantoprazole Sodium (Protonix Iv) 40 mg IVPUSH Q24H [facility] Last Admin: 10/21/19 04:29 Dose: 40 mg Potassium Chloride (Klor-Con M20) 20 meq PO DAILY [facility] Last Admin: 10/21/19 09:06 Dose: 20 meq Rivaroxaban (Xarelto) 20 mg PO DAILY [facility] Last Admin: 10/21/19 09:06 Dose: 20 mg Sodium Chloride (Saline Flush) 10 ml FLUSH ASDIRECTED PRN PRN Reason: Keep Vein Open Last Admin: 10/21/19 00:41 Dose: 10 ml Discontinued Medications Midazolam HCl (Versed 1 Mg/Ml) 2 mg IVPUSH ONETIME ONE Stop: 10/21/19 00:37 Last Admin: 10/21/19 00:41 Dose: 2 mg Midazolam HCl (Versed 1 Mg/Ml) 2 mg IVPUSH ONETIME ONE Stop: 10/21/19 01:05 Last Admin: 10/21/19 01:23 Dose: 2 mg Potassium Chloride (Klor-Con M20) 40 meq PO ONETIME ONE Stop: 10/21/19 09:01 Last Admin: 10/21/19 09:06 Dose: 40 meq - Exam General: Reports: Alert, Oriented, Cooperative, Mild Distress Lungs: Reports: Clear to Auscultation, Normal Respiratory Effort Cardiovascular: Reports: Regular Rate, Regular Rhythm, No Murmurs GI/Abdominal Exam: Soft, No Organomegaly, Tender. No: Distended, Guarding, Rigid, Rebound Extremities: Non-Tender, No Pedal Edema
[2019-10-21 11:52] VITALS: BP 139/80; PULSE 80
[2019-10-21] MEDS ORDERED: Gabapentin 300 MG Cap PO SCH (21:00)
== END 2019-10-21 12:25 | disposition home or self-care (01) ==
LOC: JP.ED 23:30 → JP.MS 10-21 03:11
PROVIDERS: ADMIT Hospitalist; ATTEND Hospitalist
DX: R41.0 Disorientation, unspecified (principal); C56.9 Malignant neoplasm of unspecified ovary; C77.9 Secondary and unspecified malignant neoplasm of lymph node, unspecified; I10 Essential (primary) hypertension; F41.1 Generalized anxiety disorder; I27.82 Chronic pulmonary embolism; Z98.84 Bariatric surgery status; Z88.5 Allergy status to narcotic agent; Z79.899 Other long term (current) drug therapy
CPT/HCPCS: 36415; 70450; 80048; 80053; 80305-QW; 80307; 81001; 83605; 84484; 85025; 85027; 96361; 96374; 96375; 96376; 99234; 99283; 99285-25; A9270-GY; C9113; G0378; J1642; J2250; J2405; J3480; J7030

== ENCOUNTER 2020-10-02 21:50 | Inpatient (IN) | payer MEDICAID ==
--- NOTE | 2020-10-02 22:16 | EDM.PDOC ---
ED HPI GENERAL MEDICAL PROBLEM - General Chief Complaint: Abdominal Pain Stated Complaint: HAS CANCER, STOMACH PAIN, HASNT ATE IN 4 DAYS Time Seen by Provider: 10/02/20 22:12 Source of Information: Reports: Patient, Old Records History Limitations: Reports: No Limitations - History of Present Illness INITIAL COMMENTS - FREE TEXT/NARRATIVE: Mayuri is a 55-year-old female presenting to the ED for evaluation of abdominal pain and probable constipation. Patient reports that she has not eaten in the last 4 days. Patient has a history of ovarian cancer that is widely metastasized with multiple tumors in the abdomen. The patient reports that they discontinued the chemotherapy in August as it was not improving her situation. She is currently awaiting talks for hospice care. She has had increasing difficulty with appetite, abdominal pain, eating, and moving her bowels over the last couple of weeks but especially over the last couple of days. Her last bowel movement was 4 days ago and was a small amount of stool after taking Dulcolax. Prior to that she had gone 2 weeks without a bowel movement. She has significant nausea and as a result is not eating. Her last time eating was 4 days ago and that was a few bites of food. She continues to lose a considerable amount of weight and strength. She had been on MiraLAX prior to the trial of Dulcolax and the MiraLAX reportedly did not help at all. Denies any fever or chills. Denies any shortness of breath or chest pain. She is rating her abdominal pain an 8-9 out of 10. She is on long-term opioids with methadone. She does report that her bowel movement several days ago was quite hard and hard to move. Abdomen Pain Score (Numeric/FACES): 7 - Related Data Allergies Allergy/AdvReac Type Severity Reaction Status Date / Time codeine AdvReac Nausea Verified 12/26/19 10:49 Home Meds: Home Meds clonazePAM [Clonazepam] 2 mg PO BEDTIME 07/17/13 [History] Ondansetron [Zofran ODT] 4 mg PO Q6H PRN 10/08/18 [History] Prochlorperazine [Compazine] 5 mg PO Q6H PRN 10/08/18 [History] HYDROmorphone [Dilaudid] 4 mg PO Q4H PRN #60 tablet 07/23/19 [Rx] Methadone 10 mg PO TID #42 tablet 07/23/19 [Rx] Potassium Chloride 20 meq PO DAILY 10/21/19 [History] Pantoprazole [ProTONIX] 40 mg PO DAILY 10/02/20 [History] Promethazine [Phenergan] 25 mg PO Q6H PRN 10/02/20 [History] Rivaroxaban [Xarelto] 1 tab PO DAILY 10/02/20 [History] Past Medical History - Past Health History Medical/Surgical History: Denies Medical/Surgical History HEENT History: Reports: Impaired Vision Cardiovascular History: Reports: Other (See Below) Other Cardiovascular History: stress test December 2017 Respiratory History: Reports: PE Other Respiratory History: spring 2018 Gastrointestinal History: Reports: Cholelithiasis Genitourinary History: Reports: UTI, Recurrent ART OBJECTS SALESPERSON History: Reports: Other ART OBJECTS SALESPERSON History: hysterectomy 2011 Musculoskeletal History: Reports: Arthritis, Fracture Neurological History: Reports: Concussion Psychiatric History: Reports: Depression Other Psychiatric History: Adjustment disorder Hematologic History: Reports: Anemia, B12 Deficiency, Blood Transfusion(s), Iron Deficiency Oncologic (Cancer) History: Reports: Ovarian, Other (See Below) Other Oncologic History: tumor on pelvic bone - Infectious Disease History Infectious Disease History: Reports: Chicken Pox - Past Surgical History Head Surgeries/Procedures: Reports: None Cardiovascular Surgical History: Reports: None GI Surgical History: Reports: Appendectomy, Bariatric Procedure, Cholecystectomy, Colon, Colonoscopy Female Surgical History: Reports: Hysterectomy, Salpingo-Oophorectomy, Other (See Below) Other Female Surgeries/Procedures: sling. 13 lb tumor removed Musculoskeletal Surgical History: Reports: Hip Replacement, Knee Replacement Other Musculoskeletal Surgeries/Procedures:: left hip. right knee Other Oncologic Surgeries/Procedures: latricia Dermatological Surgical History: Reports: None Social & Family History - Family History Family Medical History: Unobtainable - Caffeine Use Caffeine Use: Reports: Coffee, Soda - Living Situation & Occupation Living situation: Reports: Single, with Family (disabled by stage 4 ovarian cancer, now living with her Brother Daquan who is her Guardian-small animal caretaker in [place], [place]. She has two grown children age 26 yr. 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.) Occupation: Disabled ED ROS GENERAL - Review of Systems Review Of Systems: See Below Constitutional: Reports: Weakness, Fatigue, Decreased Appetite, Other (Cachectic) HEENT: Reports: No Symptoms Respiratory: Reports: No Symptoms Cardiovascular: Reports: No Symptoms Endocrine: Reports: Fatigue GI/Abdominal: Reports: Abdominal Pain, Anorexia, Constipation, Decreased Appetite, Distension, Nausea : Reports: No Symptoms Musculoskeletal: Reports: No Symptoms Skin: Reports: Pallor, Dryness Neurological: Reports: No Symptoms Psychiatric: Reports: Anxiety Hematologic/Lymphatic: Reports: No Symptoms Immunologic: Reports: No Symptoms ED EXAM, GI/ABD - Physical Exam Exam: See Below Exam Limited By: No Limitations General Appearance: Alert, Anxious, Moderate Distress Eyes: Bilateral: EOMI Throat/Mouth: No Airway Compromise, Other (Very dry mucous membranes. Cracked lips) Head: Atraumatic, Other (Very cachectic appearing with sunken eyes, minimal subcutaneous fat) Neck: Normal Inspection Respiratory/Chest: No Respiratory Distress, Lungs Clear, Normal Breath Sounds Cardiovascular: Normal Peripheral Pulses, Regular Rate, Rhythm, No Edema, No Murmur, Tachycardia GI/Abdominal Exam: Guarding (Predominantly throughout the abdomen), Tender (Generalized abdominal tenderness), Abnormal Bowel Sounds (Diminished bowel sounds), Mass (Several palpable masses in the abdomen). No: Rigid, Rebound (Female) Exam: Deferred Rectal (Female) Exam: Deferred Back Exam: Normal Inspection Extremities: No Pedal Edema, Other (Kniffen can muscle wasting in the upper and lower extremities) Neurological: Alert, Oriented, Normal Cognition, No Motor/Sensory Deficits, Other (At times the patient is somnolent) Psychiatric: Anxious, Depressed Mood Skin Exam: Pallor (Significant pallor almost grayish in color), Other (Very poor skin turgor) Course - Vital Signs Last Recorded V/S: Last Vital Signs Temp 36.7 C 10/02/20 22:23 Pulse 97 10/02/20 22:23 Resp 16 10/02/20 22:23 BP 125/93 H 10/02/20 22:23 Pulse Ox 97 10/02/20 22:23 - Orders/Labs/Meds Orders: Active Orders 24 hr Category Date Time Status Abdomen 2V AP Flat Upright [CR] Stat Exams 10/02/20 22:54 Taken Sodium Chloride 0.9% [Saline Flush] Med 10/03/20 00:16 Active 10 ml FLUSH ONETIME PRN Medication Orders Sodium Chloride (Sodium Chloride 0.9% 10 Ml Syringe) 10 ml FLUSH ONETIME PRN PRN Reason: PER RADIOLOGY PROTOCOL Last Admin: 10/03/20 00:30 Dose: 10 ml Documented by: TACHO Labs: Laboratory Tests 10/02/20 10/02/20 Range/Units 23:23 23:23 WBC 14.0 H (4.5-11.0) K/uL RBC 3.55 (3.30-5.50) M/uL Hgb 11.2 L (12.0-15.0) g/dL Hct 36.8 (36.0-48.0) % MCV 104 H (80-98) fL MCH 32 H (27-31) pg MCHC 30 L (32-36) % Plt Count 208 (150-400) K/uL Neut % (Auto) 88 H (36-66) % Lymph % (Auto) 6 L (24-44) % [place] % (Auto) 6 (2-6) % Eos % (Auto) 0 L (2-4) % Baso % (Auto) 0 (0-1) % Sodium 138 L (140-148) mmol/L Potassium 4.1 (3.6-5.2) mmol/L Chloride 98 L (100-108) mmol/L Carbon Dioxide 23 (21-32) mmol/L Anion Gap 21.1 H (5.0-14.0) mmol/L BUN 21 H D (7-18) mg/dL Creatinine 0.9 (0.6-1.0) mg/dL Est Cr Clr Drug Dosing 52.48 mL/min Estimated GFR (MDRD) > 60 (>60) Glucose 82 (74-106) mg/dL Calcium 9.3 (8.5-10.1) mg/dL Total Bilirubin 1.0 D (0.2-1.0) mg/dL AST 26 (15-37) U/L ALT 14 (12-78) U/L Alkaline Phosphatase 111 (46-116) U/L Total Protein 7.0 (6.4-8.2) g/dL Albumin 2.7 L (3.4-5.0) g/dL Globulin 4.3 H (2.3-3.5) g/dL Albumin/Globulin Ratio 0.6 L (1.2-2.2) Meds: Medications Generic Name Dose Route Start Last Admin Trade Name Harry PRN Reason Stop Dose Admin Sodium Chloride 10 ml 10/03/20 00:16 10/03/20 00:30 Sodium Chloride 0.9% 10 Ml Syringe FLUSH 10 ml ONETIME PRN Administration PER RADIOLOGY PROTOCOL Discontinued Medications Generic Name Dose Route Start Last Admin Trade Name Harry PRN Reason Stop Dose Admin Sodium Chloride 1,000 mls @ 999 mls/hr 10/02/20 22:54 10/02/20 23:35 Normal Saline IV 10/02/20 23:54 999 mls/hr .BOLUS ONE Administration Sodium Chloride 70 mls @ 3 mls/sec 10/03/20 00:16 10/03/20 00:30 Normal Saline IV 10/03/20 00:17 3 mls/sec ONETIME ONE Administration Iopamidol 72 ml 10/03/20 00:16 10/03/20 00:30 Iopamidol 612 Mg/Ml 100 Ml Bottle IV 72 ml . DIRECTED PRN Administration RADIOLOGY EXAM - Re-Assessments/Exams Free Text/Narrative Re-Assessment/Exam: 10/02/20 23:53 I reviewed the patient's labs showing leukocytosis at 14.0 with a left shift. Her comprehensive metabolic panel shows elevation of her BUN but her electrolytes appear to be within normal range. 2 view x-ray of the abdomen reveals a paucity of stool throughout the abdomen, however, there is significant colonic air fluid levels in the transverse and descending colon. We will proceed with a CT of the abdomen and pelvis to better differentiate what is going on in the abdomen. 10/03/20 01:09 CT of the abdomen and pelvis shows widely metastatic ovarian cancer with metastasis to the liver, spleen, lymph nodes and abdominal wall. There is anasarca. There are significantly dilated loops of both small and large intestine possibly due to compression due to the intra-abdominal masses. At this point, we have admit the patient for pain control and preparation for hospice. The patient apparently tried to get a hold of hospice earlier today without success. Do think that we are at this point at end-of-life decisions and need to better assess her level of pain, need for pain control, and what assistance she is going to need at home under hospice care. I discussed the case with Leila Smyth CNP who will arrange for admission of the patient to the hospital for this purpose. Departure - Departure Time of Disposition: 01:08 Disposition: Admitted As Inpatient 65 Clinical Impression: Anasarca, Carcinomatosis peritonei, Chronic generalized abdominal pain Metastatic malignant neoplasm to ovary Qualifiers: Laterality: unspecified laterality Qualified Code(s): C79.60 - Secondary malignant neoplasm of unspecified ovary - Discharge Information Referrals: Sandor Marquez MD [Primary Care Provider] - Forms: ED Department Discharge Sepsis Event Note (ED) - Focused Exam Vital Signs: Vital Signs Temp Pulse Resp BP Pulse Ox 10/02/20 22:23 36.7 C 97 16 125/93 H 97 - Problem List & Annotations (1) Metastatic malignant neoplasm to ovary Status: Chronic Priority: High Current Visit: Yes Qualifiers: Laterality: unspecified laterality Qualified Code(s): C79.60 - Secondary malignant neoplasm of unspecified ovary (2) Anasarca SNOMED Code(s): 383108729, 396219186 Code(s): R60.1 - GENERALIZED EDEMA Status: Acute Priority: High Current Visit: Yes (3) Carcinomatosis peritonei SNOMED Code(s): 221591454, 299510648, 936475353 Code(s): C78.6 - SECONDARY MALIGNANT NEOPLASM OF RETROPERITON AND PERITONEUM Status: Chronic Priority: High Current Visit: Yes (4) Chronic generalized abdominal pain SNOMED Code(s): 180021041 Code(s): R10.84 - GENERALIZED ABDOMINAL PAIN; G89.29 - OTHER CHRONIC PAIN Status: Acute Priority: High Current Visit: Yes - Problem List Review Problem List Initiated/Reviewed/Updated: Yes - My Orders Last 24 Hours: My Active Orders 10/02/20 22:54 Abdomen 2V AP Flat Upright [CR] Stat 10/03/20 00:16 Sodium Chloride 0.9% [Saline Flush] 10 ml FLUSH ONETIME PRN - Assessment/Plan Last 24 Hours: My Active Orders 10/02/20 22:54 Abdomen 2V AP Flat Upright [CR] Stat 10/03/20 00:16 Sodium Chloride 0.9% [Saline Flush] 10 ml FLUSH ONETIME PRN
[2020-10-02] MEDS ORDERED: Sodium Chloride 0.9% 1,000 ML IV ONE (22:54)
[2020-10-03] MEDS ORDERED: Iopamidol 612 MG/ML 100 ML Bottle IV PRN (00:16)
[2020-10-03] MEDS ORDERED: Sodium Chloride 0.9% 10 ML Syringe FLUSH PRN (00:16)
--- NOTE | 2020-10-03 00:55 | CRLCT ---
INDICATION: Abdominal pain TECHNIQUE: CT Abdomen and pelvis with i.v. contrast. Coronal and sagittal reformats were obtained. CONTRAST: 72 mL Isovue 300 COMPARISON: 10/10/2019 FINDINGS: Moderate degradation of image quality is present due to the patient`s inability to maintain a breath hold. Lower chest: Multiple new bilateral pulmonary nodules are present to 13 mm. New loculated left pleural effusion is present with segmental atelectasis of the left lower lobe and lingula. Liver: Multiple subcapsular nodular liver lesions are present, significantly increased in size from prior examination. Loculated subcapsular fluid is also seen surrounding the liver. Spleen: There are 2 splenic lesions present significantly enlarged from prior examination and measuring up to 2.7 cm. Pancreas: Unremarkable. Gallbladder: Unremarkable. Kidney: Unremarkable. No kidney or ureteral stones or obstruction seen. Adrenal: Unremarkable. Bowel: Severe distension in the 2nd and 3rd portion of the duodenum is noted measuring up to 4.6 cm transition point where the duodenum crosses the midline. The appendix is not identified. Vascular: Unremarkable. Lymph: Retroperitoneal adenopathy is noted measuring up to 1.3 cm. Left pelvic sidewall adenopathy is seen measuring up to 2 cm. Peritoneum: There is an enhancing peritoneal mass in the right flank measuring 12 x 7.7 cm, increased in size from prior examination. Multiple enhancing peritoneal nodules are present within the lower abdomen and pelvis. No pneumoperitoneum is seen. A small amount of abdominal ascites is present. Pelvis: The patient is status post prior hysterectomy. Soft tissue: Mild diffuse anasarca is noted. Bone: A left hip arthroplasty is noted. IMPRESSIONS: 1. Severe distension in the 2nd and 3rd portion of the duodenum is noted measuring up to 4.6 cm transition point where the duodenum crosses the midline. 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 2. Significant interval progression of pulmonary, left pleural, fady, peritoneal, liver, and splenic metastases. Dictated by Saurav Prabhakar MD @ 10/03/2020 12:54:25 AM Please note that all CT scans at this facility use dose modulation, iterative reconstruction, and/or weight-based dosing when appropriate to reduce radiation dose to as low as reasonably achievable. Dictated by: Saurav Prabhakar MD @ 10/03/2020 00:54:29 (Electronically Signed)
[2020-10-03] MEDS ORDERED: HYDROmorphone 1 MG/ML Syringe IVPUSH ONE (01:25)
[2020-10-03] MEDS ORDERED: LORazepam 2 MG/ML SDV IVPUSH ONE (01:25)
[2020-10-03] MEDS ORDERED: Ondansetron 4 MG/2 ML SDV IV PRN (02:06)
[2020-10-03] MEDS ORDERED: Albuterol 0.083% 2.5 MG/3 ML Neb Soln NEB PRN (02:06)
[2020-10-03] MEDS ORDERED: LORazepam 2 MG/ML SDV IV PRN (02:06)
[2020-10-03] MEDS ORDERED: Acetaminophen 325 MG Tab PO PRN (02:06)
[2020-10-03] MEDS ORDERED: Sodium Chloride 0.9% 1,000 ML IV SCH (02:06)
[2020-10-03] MEDS ORDERED: HYDROmorphone 1 MG/ML Syringe IVPUSH PRN (02:06)
[2020-10-03] MEDS ORDERED: Acetaminophen 1,000 MG in Premix Bag 1 BAG IV PRN (02:06)
--- NOTE | 2020-10-03 02:16 | PCM.HP.2 ---
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 Mayuri is a 55-year-old female presenting to the ED for evaluation of abdominal pain and probable constipation. Patient reports that she has not eaten in the last 4 days. Patient has a history of ovarian cancer that is widely metastasized with multiple tumors in the abdomen. The patient reports that they discontinued the chemotherapy in August as it was not improving her situation. She is currently awaiting talks for hospice care. She has had increasing difficulty with appetite, abdominal pain, eating, and moving her bowels over the last couple of weeks but especially over the last couple of days. Her last bowel movement was 4 days ago and was a small amount of stool after taking Dulcolax. Prior to that she had gone 2 weeks without a bowel movement. She has significant nausea and as a result is not eating. Her last time eating was 4 days ago and that was a few bites of food. She continues to lose a considerable amount of weight and strength. She had been on MiraLAX prior to the trial of Dulcolax and the MiraLAX reportedly did not help at all. Denies any fever or chills. Denies any shortness of breath or chest pain. She is rating her abdominal pain an 8-9 out of 10. She is on long-term opioids with methadone. She does report that her bowel movement several days ago was quite hard and hard to move. Onset of Symptoms: Reports: Gradual Duration of Symptoms: Reports: Day(s):, Getting Worse Location: Reports: Abdomen, Generalized Quality: Reports: Ache, Sharp Severity: Severe (rates pain 8-9 out of 10, last Methadone at 1930 - not given any Dilaudid today) Improves with: Reports: Medication Worsens with: Reports: Movement Context: Reports: Other (end stage Ovarian cancer with mets.) Associated Symptoms: Reports: Cough, Loss of Appetite, Malaise, Nausea/Vomiting, Weakness Abdomen Pain Score (Numeric/FACES): 7 - Related Data Allergies/Adverse Reactions: Allergies Allergy/AdvReac Type Severity Reaction Status Date / Time codeine AdvReac Nausea Verified 12/26/19 10:49 Home Medications: Home Meds clonazePAM [Clonazepam] 2 mg PO BEDTIME 07/17/13 [History] Ondansetron [Zofran ODT] 4 mg PO Q6H PRN 10/08/18 [History] Prochlorperazine [Compazine] 5 mg PO Q6H PRN 10/08/18 [History] HYDROmorphone [Dilaudid] 4 mg PO Q4H PRN #60 tablet 07/23/19 [Rx] Methadone 10 mg PO TID #42 tablet 07/23/19 [Rx] Potassium Chloride 20 meq PO DAILY 10/21/19 [History] Pantoprazole [ProTONIX] 40 mg PO DAILY 10/02/20 [History] Promethazine [Phenergan] 25 mg PO Q6H PRN 10/02/20 [History] Rivaroxaban [Xarelto] 1 tab PO DAILY 10/02/20 [History] Past Medical History - Past Health History Medical/Surgical History: Denies Medical/Surgical History HEENT History: Reports: Impaired Vision Cardiovascular History: Reports: Other (See Below) Other Cardiovascular History: stress test December 2017 Respiratory History: Reports: PE Other Respiratory History: spring 2018 Gastrointestinal History: Reports: Cholelithiasis Genitourinary History: Reports: UTI, Recurrent 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: Reports: Other OB/BYN History: hysterectomy 2011 Musculoskeletal History: Reports: Arthritis, Fracture Neurological History: Reports: Concussion Psychiatric History: Reports: Depression Other Psychiatric History: Adjustment disorder Hematologic History: Reports: Anemia, B12 Deficiency, Blood Transfusion(s), Iron Deficiency Oncologic (Cancer) History: Reports: Ovarian, Other (See Below) Other Oncologic History: tumor on pelvic bone - Infectious Disease History Infectious Disease History: Reports: Chicken Pox - Past Surgical History Head Surgeries/Procedures: Reports: None HEENT Surgical History: Reports: Tonsillectomy Cardiovascular Surgical History: Reports: None Respiratory Surgical History: Reports: None GI Surgical History: Reports: Appendectomy, Bariatric Procedure, Cholecystectomy, Colon, Colonoscopy Female Surgical History: Reports: Hysterectomy, Salpingo-Oophorectomy, Other (See Below) Other Female Surgeries/Procedures: sling. 13 lb tumor removed Neurological Surgical History: Reports: None Musculoskeletal Surgical History: Reports: Hip Replacement, Knee Replacement Other Musculoskeletal Surgeries/Procedures:: left hip. right knee Oncologic Surgical History: Reports: Other (See Below) Other Oncologic Surgeries/Procedures: latricia Dermatological Surgical History: Reports: None Social & Family History - Family History Family Medical History: Unobtainable - Tobacco Use Tobacco Use Status *Q: Never Tobacco User Second Hand Smoke Exposure: Yes - Caffeine Use Caffeine Use: Reports: Tea - Recreational Drug Use Recreational Drug Use: Yes Recreational Drug Type: Reports: Marijuana/Hashish Recreational Drug Use Frequency: Socially - Living Situation & Occupation Living situation: Reports: Single, with Family (disabled by stage 4 ovarian cancer, now living with her Brother Daquan who is her Guardian-taker out in [place], [place]. She has two grown children age 26 yr. 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 unable to eat due to pain and nausea), Constipation (last bowel movement 14 days ago, had a small hard stool 4 days ago), Decreased Appetite, Nausea Genitourinary: Reports: Dysuria Musculoskeletal: Reports: Other (generalized bone and muscle pain) Skin: Reports: No Symptoms Psychiatric: Reports: No Symptoms Neurological: Reports: No Symptoms Hematologic/Lymphatic: Reports: Other (history of chronic PE of lungs) Immunologic: Reports: No Symptoms Exam - Exam Exam: See Below - Vital Signs Vital Signs: Last Vital Signs Temp 98.0 F 10/02/20 22:23 Pulse 97 10/02/20 22:23 Resp 16 10/02/20 22:23 BP 125/93 H 10/02/20 22:23 Pulse Ox 97 10/02/20 22:23 Weight: 105 lb - Exam Quality Assessment: DVT Prophylaxis General: Alert, Oriented, Cooperative, Moderate Distress, Other (very thin, pale, fragile appearance) HEENT: PERRLA Neck: Supple, Trachea Midline, Full Range of Motion Lungs: Clear to Auscultation, Normal Respiratory Effort Cardiovascular: Regular Rate, Regular Rhythm, Normal S1, Normal S2 GI/Abdominal Exam: Tender (generalized abdominal pain), Abnormal Bowel Sounds (no bowel sounds present. abdomen is firm and tender) (Female) Exam: Deferred Rectal (Female) Exam: Deferred Back Exam: Other (thin and bony) Extremities: Limited Range of Motion (due to weakness ), Pallor, Other (thin and bony prominence of extremities, no edema is noted) Skin: Warm, Dry, Intact, Other (fragile) Neurological: Strength Equal Bilateral (very weak), Normal Speech, Normal Tone Neuro Extensive - Mental Status: Alert, Oriented x3, Normal Cognition, Memory Intact Neuro Extensive - Motor, Sensory, Reflexes: Motor/Sensory Deficits Psychiatric: Alert, Normal Affect, Normal Mood - Patient Data Lab Results Last 24 hrs: Laboratory Results - last 24 hr 10/02/20 10/02/20 Range/Units 23:23 23:23 WBC 14.0 H (4.5-11.0) K/uL RBC 3.55 (3.30-5.50) M/uL Hgb 11.2 L (12.0-15.0) g/dL Hct 36.8 (36.0-48.0) % MCV 104 H (80-98) fL MCH 32 H (27-31) pg MCHC 30 L (32-36) % Plt Count 208 (150-400) K/uL Neut % (Auto) 88 H (36-66) % Lymph % (Auto) 6 L (24-44) % [place] % (Auto) 6 (2-6) % Eos % (Auto) 0 L (2-4) % Baso % (Auto) 0 (0-1) % Sodium 138 L (140-148) mmol/L Potassium 4.1 (3.6-5.2) mmol/L Chloride 98 L (100-108) mmol/L Carbon Dioxide 23 (21-32) mmol/L Anion Gap 21.1 H (5.0-14.0) mmol/L BUN 21 H D (7-18) mg/dL Creatinine 0.9 (0.6-1.0) mg/dL Est Cr Clr Drug Dosing 52.48 mL/min Estimated GFR (MDRD) > 60 (>60) Glucose 82 (74-106) mg/dL Calcium 9.3 (8.5-10.1) mg/dL Total Bilirubin 1.0 D (0.2-1.0) mg/dL AST 26 (15-37) U/L ALT 14 (12-78) U/L Alkaline Phosphatase 111 (46-116) U/L Total Protein 7.0 (6.4-8.2) g/dL Albumin 2.7 L (3.4-5.0) g/dL Globulin 4.3 H (2.3-3.5) g/dL Albumin/Globulin Ratio 0.6 L (1.2-2.2) Result Diagrams: 10/02/20 23:23 10/02/20 23:23 Sepsis Event Note - Evaluation Sepsis Screening Result: No Definite Risk - Focused Exam Vital Signs: Vital Signs Temp Pulse Resp BP Pulse Ox 10/02/20 22:23 98.0 F 97 16 125/93 H 97 - Problem List (1) Metastatic malignant neoplasm to ovary Status: Chronic Priority: High Current Visit: Yes Qualifiers: Laterality: unspecified laterality Qualified Code(s): C79.60 - Secondary malignant neoplasm of unspecified ovary (2) Ovarian cancer Status: Chronic Priority: High Current Visit: No Qualifiers: Laterality: unspecified laterality Qualified Code(s): C56.9 - Malignant neoplasm of unspecified ovary (3) Chronic pulmonary embolism SNOMED Code(s): [id number] ICD Code: I27.82 - CHRONIC PULMONARY EMBOLISM Status: Acute Priority: Medium Current Visit: Yes Qualifiers: Pulmonary embolism type: unspecified Acute cor pulmonale presence: unspecified Qualified Code(s): I27.82 - Chronic pulmonary embolism Problem List Initiated/Reviewed/Updated: Yes Orders Last 24hrs: Active Orders 24 hr Category Date Time Status Bedrest Bathroom Privileges [RC] ASDIRECTED Care 10/03/20 02:06 Active Intake and Output [RC] QSHIFT Care 10/03/20 02:06 Active Notify Provider Vital Signs [RC] ASDIRECTED Care 10/03/20 02:06 Active Oxygen Therapy [RC] PRN Care 10/03/20 02:06 Active Pulse Oximetry [RC] CONTINUOUS Care 10/03/20 02:06 Active RT Aerosol Therapy [RC] ASDIRECTED Care 10/03/20 02:06 Active Vital Signs [RC] Q4H Care 10/03/20 02:06 Active Consult to Case Management/Machine Operator Replanter [CONS] Cons 10/03/20 02:06 Active Routine Regular Diet [DIET] Diet 10/03/20 Breakfast Active Abdomen 2V AP Flat Upright [CR] Stat Exams 10/02/20 22:54 Taken BASIC METABOLIC PANEL,BMP [CHEM] AM Lab 10/03/20 05:11 Ordered Acetaminophen [Ofirmev 1000 mg/100 ml] 1,000 mg Med 10/03/20 02:06 Active Premix Bag 1 bag IV Q6H Acetaminophen [TylenoL] Med 10/03/20 02:06 Active 650 mg PO Q4H PRN Albuterol [Proventil Neb Soln] Med 10/03/20 02:06 Active 2.5 mg NEB Q4H PRN HYDROmorphone [Dilaudid] Med 10/03/20 02:06 Active 1 mg IVPUSH Q2H PRN LORazepam [Ativan] Med 10/03/20 02:06 Active 1 mg IV Q2H PRN Ondansetron [Zofran] Med 10/03/20 02:06 Active 4 mg IV Q4H PRN Rivaroxaban [Xarelto] Med 10/03/20 09:00 Active 20 mg PO DAILY Sodium Chloride 0.9% [Normal Saline] 1,000 ml Med 10/03/20 02:06 Active IV ASDIRECTED Sodium Chloride 0.9% [Saline Flush] Med 10/03/20 00:16 Active 10 ml FLUSH ONETIME PRN Pressure Reduction Mattress [OM.PC] Routine Oth 10/03/20 02:06 Ordered Resuscitation Status Routine Resus Stat 10/03/20 01:39 Ordered Medication Orders Acetaminophen (Acetaminophen 325 Mg Tab) 650 mg PO Q4H PRN PRN Reason: Pain (Mild 1-3)/fever Albuterol (Albuterol 0.083% 2.5 Mg/3 Ml Neb Soln) 2.5 mg NEB Q4H PRN PRN Reason: Shortness Of Breath/wheezing Hydromorphone HCl (Hydromorphone 1 Mg/Ml Syringe) 1 mg IVPUSH Q2H PRN PRN Reason: Abdominal Pain Acetaminophen 1,000 mg/ Premix 100 mls @ 400 mls/hr IV Q6H PRN PRN Reason: Pain Stop: 10/04/20 02:07 Sodium Chloride (Normal Saline) 1,000 mls @ 100 mls/hr IV ASDIRECTED AMRIK Lorazepam (Lorazepam 2 Mg/Ml Sdv) 1 mg IV Q2H PRN PRN Reason: Anxiety Ondansetron HCl (Ondansetron 4 Mg/2 Ml Sdv) 4 mg IV Q4H PRN PRN Reason: Nausea/Vomiting Rivaroxaban (Rivaroxaban 10 Mg Tab) 20 mg PO DAILY AMRIK Sodium Chloride (Sodium Chloride 0.9% 10 Ml Syringe) 10 ml FLUSH ONETIME PRN PRN Reason: PER RADIOLOGY PROTOCOL Last Admin: 10/03/20 00:30 Dose: 10 ml Documented by: TACHO Assessment/Plan Comment:: Assessment/Plan Comment:: METASTATIC MALIGNANT NEOPLASM TO OVARY WITH METS. END STAGE 4B ASSESSMENT AND PLAN - ER workup- 10/03/20 01:09 CT of the abdomen and pelvis shows widely metastatic ovarian cancer with metastasis to the liver, spleen, lymph nodes and abdominal wall. There is anasarca. There are significantly dilated loops of both small and large intestine possibly due to compression due to the intra-abdominal masses. At this point, we have admit the patient for pain control and preparation for hospice. The patient apparently tried to get a hold of hospice earlier today without success. Do think that we are at this point at end-of-life decisions and need to better assess her level of pain, need for pain control, and what assistance she is going to need at home under hospice care. I discussed the case with Leila Harper CNP who will arrange for admission of the patient to the hospital for this purpose. OVARIAN CANCER- END STAGE WITH METS. Ms. Urena is aware the cancer is end- stage. She tried to contact Hospice on Sunday- is awaiting a call back. She would like pain and nausea control and be kept comfortable. She would like to be full code until her Daughter arrives and she is able to discuss plan of care with Hospice and her family. She is aware that full code would most likely not be successful given her current state of health, but she would like to be kept alive until her Daughter arrives if at all possible. Her Brother Daquan is her Porcelain Finish Sprayer and agrees with plan of care -IV fluids Normal Saline 100ml/her -IV Dilaudid 1 mg every 2 hours as needed for pain control -IV Ativan 1 mg every 2 hours as needed for nausea -continuous pulse ox. -consult to Hospice Chronic PE -continue outpatient therapy until transfer into Hospice Care -Xarelto one po daily Maintenance issues - - DVT prophylaxis -Xarelto one po daily - GI prophylaxis -not indicated - Nutrition -regular diet as tolerated - Rendon catheter -not indicated at this time CODE STATUS -full code Admission justification -this patient will be admitted for inpatient services and is medically appropriate meeting medical necessity for inpatient admission as outlined in my documentation. I reasonably expect the patient will require inpatient services that span a period time over 2 midnights. I reasonably expect this patient to be discharged or transferred within 96 hours after admission to the [facility]. Disposition -I would anticipate discharge home with Hospice Care after the hospital stay Primary care physician -Dr. Marquez Hospitalist- Eddie More M.D. - Mortality Measure Prognosis:: Poor - Mortality Measure Prognosis:: Poor
[2020-10-03] MEDS: Rivaroxaban 10 MG Tab PO SCH (08:04)
[2020-10-03] MEDS ORDERED: LORazepam ORAL Concentrate 1MG/0.5ML U/D PO PRN (09:54)
--- NOTE | 2020-10-03 09:57 | PCM.PN ---
- General Info Date of Service: 10/03/20 Subjective Update: No acute events overnight following admission. She reports that her generalized abdominal pain is currently at moderate which is slightly better than last night . She has nearly constant nausea but has not had any vomiting. She is able to tolerate some liquids. We talked about the current status of her cancer which is extensive and worsening fairly quickly. She is now ready to make the transition to comfort care only. Pain and nausea control are important to her and she would like to make at home if possible. Family seems supportive of her wish to be at home. She is interested in hospice care after hospital discharge. Functional Status: Reports: Pain Controlled - Review of Systems General: Reports: Weakness. Denies: Fever Gastrointestinal: Reports: Abdominal Pain, Nausea - Patient Data Vitals - Most Recent: Last Vital Signs Temp 35.9 C L 10/03/20 07:26 Pulse 85 10/03/20 07:26 Resp 16 10/03/20 07:26 BP 116/82 10/03/20 07:26 Pulse Ox 89 L 10/03/20 07:26 Weight - Most Recent: 46.266 kg I&O - Last 24 Hours: Intake & Output 10/02/20 10/03/20 10/03/20 22:59 06:59 14:59 Intake Total 367 Output Total 300 Balance 67 Lab Results Last 24 Hours: Laboratory Results - last 24 hr 10/02/20 10/02/20 10/03/20 Range/Units 23:23 23:23 04:35 WBC 14.0 H (4.5-11.0) K/uL RBC 3.55 (3.30-5.50) M/uL Hgb 11.2 L (12.0-15.0) g/dL Hct 36.8 (36.0-48.0) % MCV 104 H (80-98) fL MCH 32 H (27-31) pg MCHC 30 L (32-36) % Plt Count 208 (150-400) K/uL Neut % (Auto) 88 H (36-66) % Lymph % (Auto) 6 L (24-44) % Newberry % (Auto) 6 (2-6) % Eos % (Auto) 0 L (2-4) % Baso % (Auto) 0 (0-1) % Sodium 138 L 138 L (140-148) mmol/L Potassium 4.1 3.9 (3.6-5.2) mmol/L Chloride 98 L 101 (100-108) mmol/L Carbon Dioxide 23 27 (21-32) mmol/L Anion Gap 21.1 H 13.9 (5.0-14.0) mmol/L BUN 21 H D 20 H (7-18) mg/dL Creatinine 0.9 0.8 (0.6-1.0) mg/dL Est Cr Clr Drug Dosing 52.48 57.35 mL/min Estimated GFR (MDRD) > 60 > 60 (>60) Glucose 82 79 (74-106) mg/dL Calcium 9.3 8.6 (8.5-10.1) mg/dL Total Bilirubin 1.0 D (0.2-1.0) mg/dL AST 26 (15-37) U/L ALT 14 (12-78) U/L Alkaline Phosphatase 111 (46-116) U/L Total Protein 7.0 (6.4-8.2) g/dL Albumin 2.7 L (3.4-5.0) g/dL Globulin 4.3 H (2.3-3.5) g/dL Albumin/Globulin Ratio 0.6 L (1.2-2.2) Med Orders - Current: Current Medications Acetaminophen (Acetaminophen 325 Mg Tab) 650 mg PO Q4H PRN PRN Reason: Fever Albuterol (Albuterol 0.083% 2.5 Mg/3 Ml Neb Soln) 2.5 mg NEB Q4H PRN PRN Reason: Shortness Of Breath/wheezing Ondansetron HCl (Ondansetron 4 Mg/2 Ml Sdv) 4 mg IV Q4H PRN PRN Reason: Nausea/Vomiting Rivaroxaban (Rivaroxaban 10 Mg Tab) 20 mg PO DAILY [facility] Last Admin: 10/03/20 08:04 Dose: 20 mg Documented by: Sodium Chloride (Sodium Chloride 0.9% 10 Ml Syringe) 10 ml FLUSH ONETIME PRN PRN Reason: PER RADIOLOGY PROTOCOL Last Admin: 10/03/20 00:30 Dose: 10 ml Documented by: Discontinued Medications Hydromorphone HCl (Hydromorphone 1 Mg/Ml Syringe) 2 mg IVPUSH ONETIME ONE Stop: 10/03/20 01:26 Last Admin: 10/03/20 01:56 Dose: 2 mg Documented by: Hydromorphone HCl (Hydromorphone 1 Mg/Ml Syringe) 1 mg IVPUSH Q2H PRN PRN Reason: Abdominal Pain Last Admin: 10/03/20 08:04 Dose: 1 mg Documented by: Sodium Chloride (Normal Saline) 1,000 mls @ 999 mls/hr IV .BOLUS ONE Stop: 10/02/20 23:54 Last Admin: 10/02/20 23:35 Dose: 999 mls/hr Documented by: Sodium Chloride (Normal Saline) 70 mls @ 3 mls/sec IV ONETIME ONE Stop: 10/03/20 00:17 Last Admin: 10/03/20 00:30 Dose: 3 mls/sec Documented by: Acetaminophen 1,000 mg/ Premix 100 mls @ 400 mls/hr IV Q6H PRN PRN Reason: Pain Stop: 10/04/20 02:07 Sodium Chloride (Normal Saline) 1,000 mls @ 100 mls/hr IV ASDIRECTED [facility] Iopamidol (Iopamidol 612 Mg/Ml 100 Ml Bottle) 72 ml IV . DIRECTED PRN PRN Reason: RADIOLOGY EXAM Last Admin: 10/03/20 00:30 Dose: 72 ml Documented by: Lorazepam (Lorazepam 2 Mg/Ml Sdv) 1 mg IVPUSH ONETIME ONE Stop: 10/03/20 01:26 Last Admin: 10/03/20 01:51 Dose: 1 mg Documented by: Lorazepam (Lorazepam 2 Mg/Ml Sdv) 1 mg IV Q2H PRN PRN Reason: Anxiety - Exam Quality Assessment: Supplemental Oxygen General: Alert, No Acute Distress, Sedated Lungs: Normal Respiratory Effort Skin: Warm, Dry Psy/Mental Status: Alert. No: Agitated - Patient Data Lab Results Last 24 hrs: Laboratory Results - last 24 hr 10/02/20 10/02/20 10/03/20 Range/Units 23:23 23:23 04:35 WBC 14.0 H (4.5-11.0) K/uL RBC 3.55 (3.30-5.50) M/uL Hgb 11.2 L (12.0-15.0) g/dL Hct 36.8 (36.0-48.0) % MCV 104 H (80-98) fL MCH 32 H (27-31) pg MCHC 30 L (32-36) % Plt Count 208 (150-400) K/uL Neut % (Auto) 88 H (36-66) % Lymph % (Auto) 6 L (24-44) % Newberry % (Auto) 6 (2-6) % Eos % (Auto) 0 L (2-4) % Baso % (Auto) 0 (0-1) % Sodium 138 L 138 L (140-148) mmol/L Potassium 4.1 3.9 (3.6-5.2) mmol/L Chloride 98 L 101 (100-108) mmol/L Carbon Dioxide 23 27 (21-32) mmol/L Anion Gap 21.1 H 13.9 (5.0-14.0) mmol/L BUN 21 H D 20 H (7-18) mg/dL Creatinine 0.9 0.8 (0.6-1.0) mg/dL Est Cr Clr Drug Dosing 52.48 57.35 mL/min Estimated GFR (MDRD) > 60 > 60 (>60) Glucose 82 79 (74-106) mg/dL Calcium 9.3 8.6 (8.5-10.1) mg/dL Total Bilirubin 1.0 D (0.2-1.0) mg/dL AST 26 (15-37) U/L ALT 14 (12-78) U/L Alkaline Phosphatase 111 (46-116) U/L Total Protein 7.0 (6.4-8.2) g/dL Albumin 2.7 L (3.4-5.0) g/dL Globulin 4.3 H (2.3-3.5) g/dL Albumin/Globulin Ratio 0.6 L (1.2-2.2) Result Diagrams: 10/02/20 23:23 10/03/20 04:35 Sepsis Event Note - Evaluation Sepsis Screening Result: No Definite Risk - Focused Exam Vital Signs: Vital Signs Temp Pulse Resp BP Pulse Ox 10/03/20 07:26 35.9 C L 85 16 116/82 89 L 10/03/20 07:11 93 L 10/03/20 02:55 93 L 10/03/20 02:27 36.4 C 89 16 108/67 93 L 10/02/20 22:23 36.7 C 97 16 125/93 H 97 - Problem List Review Problem List Initiated/Reviewed/Updated: Yes - My Orders Last 24 Hours: My Active Orders 10/03/20 09:53 HYDROmorphone [Dilaudid 1 MG/ML U/D] 2 mg PO Q2H PRN Convert IV to Saline Lock [OM.PC] Routine 10/03/20 09:54 LORazepam [Ativan ORAL Concentrate 1MG/0.5 ML U/D] 1 mg PO Q2H PRN Resuscitation Status Routine 10/03/20 09:55 Ondansetron [Zofran ODT] 8 mg PO Q6H PRN 10/03/20 14:00 Methadone 10 mg PO TID 10/03/20 21:00 ClonazePAM [KlonoPIN] 2 mg PO BEDTIME - Plan Plan:: ASSESSMENT AND PLAN - OVARIAN [id number] disease with widespread metastases. Worsening despite chemotherapy and no additional treatment options available. Patient and family are interested in transition to comfort cares at this time. She is currently experiencing a fair amount of pain as well as nausea. Intake has been minimal and she has had significant weight loss over the last several months. She is very appropriate for hospice care. Planning to titrate pain and nausea medications today with the goal of being able to get her home in the next day or 2. -Hydromorphone solution every 2 hours for pain -Lorazepam solution as needed for nausea -Additional nausea management as indicated -Hospice consultation tomorrow -CODE STATUS is now DNR/DNI with comfort care only Chronic PE-continue outpatient therapy as long as she is able to take pills -Rivaroxaban Maintenance issues - - DVT prophylaxis -rivaroxaban - GI prophylaxis -not indicated - Nutrition -regular diet as tolerated CODE STATUS -DNR/DNI with comfort care only Disposition -I would anticipate discharge home with Hospice Care after the hospital stay Primary care physician -Dr. Jimmy More M.D.
[2020-10-03] MEDS: Methadone 10 MG Tab PO SCH ×3 (13:11→20:11)
[2020-10-03] MEDS: HYDROmorphone ORAL Concentrate 1 MG/ML CONT U/D PO PRN ×2 (13:11→15:58)
[2020-10-03] MEDS: ClonazePAM 0.5 MG Tab PO SCH ×2 (19:27→20:11)
[2020-10-04] MEDS: HYDROmorphone ORAL Concentrate 1 MG/ML CONT U/D PO PRN ×4 (02:22→17:43)
[2020-10-04] MEDS: Methadone 10 MG Tab PO SCH ×3 (08:00→20:26)
[2020-10-04] MEDS: Rivaroxaban 10 MG Tab PO SCH (08:01)
[2020-10-04] MEDS: Ondansetron 4 MG Tab.DIS PO PRN ×2 (08:58→15:29)
--- NOTE | 2020-10-04 09:12 | CR ---
Abdomen 2V AP Flat Upright CLINICAL HISTORY: Abdominal pain FINDINGS: No free air is identified. There is a moderate left effusion and small right effusion. There is extensive upper abdominal surgery. There are a few scattered air-fluid levels. There is some questionable thickening of left colonic mucosa. There are multiple nodules in the lung bases. IMPRESSION: Nonacute small intestinal gas pattern Questionable colonic thickening in the left. This evaluation is limited and if clinically relevant CT should be considered Moderate-sized left pleural effusion with a small right effusion Pulmonary metastasis suspected
--- NOTE | 2020-10-04 10:46 | PCM.PN ---
- General Info Date of Service: 10/04/20 Subjective Update: Ms. Urena has remained fairly comfortable and stable over the last 24 hours. Current plan is for discharged home with hospice care tomorrow. Functional Status: Reports: Pain Controlled - Review of Systems Pulmonary: Reports: No Symptoms Cardiovascular: Reports: No Symptoms Gastrointestinal: Reports: No Symptoms - Patient Data Vitals - Most Recent: Last Vital Signs Temp 98 F 10/04/20 07:24 Pulse 95 10/04/20 07:24 Resp 14 10/04/20 07:24 BP 125/85 10/04/20 07:24 Pulse Ox 91 L 10/04/20 07:24 Weight - Most Recent: 102 lb I&O - Last 24 Hours: Intake & Output 10/03/20 10/04/20 10/04/20 22:59 06:59 14:59 Intake Total 60 Balance 60 Med Orders - Current: Current Medications Acetaminophen (Acetaminophen 325 Mg Tab) 650 mg PO Q4H PRN PRN Reason: Fever Albuterol (Albuterol 0.083% 2.5 Mg/3 Ml Neb Soln) 2.5 mg NEB Q4H PRN PRN Reason: Shortness Of Breath/wheezing Clonazepam (Clonazepam 0.5 Mg Tab) 2 mg PO BEDTIME COUNTS INCLUDE 234 BEDS AT THE [facility] Last Admin: 10/03/20 20:11 Dose: Not Given Documented by: Hydromorphone HCl (Hydromorphone Oral Concentrate 1 Mg/Ml Cont U/D) 2 mg PO Q2H PRN PRN Reason: Pain Last Admin: 10/04/20 10:39 Dose: 2 mg Documented by: Lorazepam (Lorazepam Oral Concentrate 1mg/0.5ml U/D) 1 mg PO Q2H PRN PRN Reason: Nausea/Anxiety Methadone HCl (Methadone 10 Mg Tab) 10 mg PO TID COUNTS INCLUDE 234 BEDS AT THE [facility] Last Admin: 10/04/20 08:00 Dose: 10 mg Documented by: Ondansetron HCl (Ondansetron 4 Mg/2 Ml Sdv) 4 mg IV Q4H PRN PRN Reason: Nausea/Vomiting Ondansetron HCl (Ondansetron 4 Mg Tab.Dis) 8 mg PO Q6H PRN PRN Reason: Nausea/Vomiting Last Admin: 10/04/20 08:58 Dose: 8 mg Documented by: Rivaroxaban (Rivaroxaban 10 Mg Tab) 20 mg PO DAILY COUNTS INCLUDE 234 BEDS AT THE [facility] Last Admin: 10/04/20 08:01 Dose: 20 mg Documented by: Sodium Chloride (Sodium Chloride 0.9% 10 Ml Syringe) 10 ml FLUSH ONETIME PRN PRN Reason: PER RADIOLOGY PROTOCOL Last Admin: 10/03/20 00:30 Dose: 10 ml Documented by: Discontinued Medications Hydromorphone HCl (Hydromorphone 1 Mg/Ml Syringe) 2 mg IVPUSH ONETIME ONE Stop: 10/03/20 01:26 Last Admin: 10/03/20 01:56 Dose: 2 mg Documented by: Hydromorphone HCl (Hydromorphone 1 Mg/Ml Syringe) 1 mg IVPUSH Q2H PRN PRN Reason: Abdominal Pain Last Admin: 10/03/20 08:04 Dose: 1 mg Documented by: Sodium Chloride (Normal Saline) 1,000 mls @ 999 mls/hr IV .BOLUS ONE Stop: 10/02/20 23:54 Last Admin: 10/02/20 23:35 Dose: 999 mls/hr Documented by: Sodium Chloride (Normal Saline) 70 mls @ 3 mls/sec IV ONETIME ONE Stop: 10/03/20 00:17 Last Admin: 10/03/20 00:30 Dose: 3 mls/sec Documented by: Acetaminophen 1,000 mg/ Premix 100 mls @ 400 mls/hr IV Q6H PRN PRN Reason: Pain Stop: 10/04/20 02:07 Sodium Chloride (Normal Saline) 1,000 mls @ 100 mls/hr IV ASDIRECTED COUNTS INCLUDE 234 BEDS AT THE [facility] Iopamidol (Iopamidol 612 Mg/Ml 100 Ml Bottle) 72 ml IV . DIRECTED PRN PRN Reason: RADIOLOGY EXAM Last Admin: 10/03/20 00:30 Dose: 72 ml Documented by: Lorazepam (Lorazepam 2 Mg/Ml Sdv) 1 mg IVPUSH ONETIME ONE Stop: 10/03/20 01:26 Last Admin: 10/03/20 01:51 Dose: 1 mg Documented by: Lorazepam (Lorazepam 2 Mg/Ml Sdv) 1 mg IV Q2H PRN PRN Reason: Anxiety - Exam General: Sedated, Lethargic Lungs: Clear to Auscultation, Normal Respiratory Effort Cardiovascular: Regular Rate, Regular Rhythm, No Murmurs GI/Abdominal Exam: Soft, Non-Tender, No Organomegaly, No Distention Extremities: Non-Tender, No Pedal Edema - Patient Data Result Diagrams: 10/02/20 23:23 10/03/20 04:35 Sepsis Event Note - Evaluation Sepsis Screening Result: No Definite Risk - Focused Exam Vital Signs: Vital Signs Temp Pulse Resp BP Pulse Ox 10/04/20 07:24 98 F 95 14 125/85 91 L - Problem List Review Problem List Initiated/Reviewed/Updated: Yes - Plan Plan:: ASSESSMENT AND PLAN - OVARIAN [id number] disease with widespread metastases. Worsening despite chemotherapy and no additional treatment options available. Patient and family are interested in transition to comfort cares at this time. Pain and nausea are relatively well controlled with current management -Hydromorphone solution every 2 hours for pain -Lorazepam solution as needed for nausea -Additional nausea management as indicated -Discharge to home tomorrow with hospice admission -CODE STATUS is now DNR/DNI with comfort care only Chronic PE-continue outpatient therapy as long as she is able to take pills -Rivaroxaban Maintenance issues - - DVT prophylaxis -rivaroxaban - GI prophylaxis -not indicated - Nutrition -regular diet as tolerated CODE STATUS -DNR/DNI with comfort care only Disposition -I would anticipate discharge home with Hospice Care after the hospital stay Primary care physician -Dr. Marquez
[2020-10-05 07:51] VITALS: BP 106/76; PULSE 100
[2020-10-05] MEDS: Methadone 10 MG Tab PO SCH (08:37)
[2020-10-05] MEDS: Rivaroxaban 10 MG Tab PO SCH (08:38)
--- NOTE | 2020-10-05 08:54 | PCM.DCSUM1 ---
Discharge Summary - Hospital Course Brief History: Ms. Urena is a 55-year-old woman who was admitted through the emergency department with uncontrolled pain and nausea secondary to end-stage metastatic ovarian carcinoma. - Discharge Data Discharge Date: 10/05/20 Discharge Disposition: DC/Tfer to Hospice - Home 49 Condition: Poor - Referral to Home Health Primary Care Physician: Sandor Marquez MD - Discharge Diagnosis/Problem(s) (1) Anasarca SNOMED Code(s): 480335832, 108852029 ICD Code: R60.1 - GENERALIZED EDEMA Status: Acute Priority: High Current Visit: Yes (2) Carcinomatosis peritonei SNOMED Code(s): 284285771, 785474134, 486433003 ICD Code: C78.6 - SECONDARY MALIGNANT NEOPLASM OF RETROPERITON AND PERITONEUM Status: Chronic Priority: High Current Visit: Yes (3) Chronic generalized abdominal pain SNOMED Code(s): 610256346 ICD Code: R10.84 - GENERALIZED ABDOMINAL PAIN; G89.29 - OTHER CHRONIC PAIN Status: Acute Priority: High Current Visit: Yes (4) Chronic pulmonary embolism SNOMED Code(s): 098156421197995 ICD Code: I27.82 - CHRONIC PULMONARY EMBOLISM Status: Acute Priority: Medium Current Visit: Yes Qualifiers: Pulmonary embolism type: unspecified Acute cor pulmonale presence: unspecified Qualified Code(s): I27.82 - Chronic pulmonary embolism (5) Metastatic malignant neoplasm to ovary Status: Chronic Priority: High Current Visit: Yes Qualifiers: Laterality: unspecified laterality Qualified Code(s): C79.60 - Secondary malignant neoplasm of unspecified ovary - Patient Summary/Data Consults: Consultations 10/03/20 02:06 Consult to Case Management/Photo Finisher [CONS] Routine Comment: Physician Instructions: Service(s) to be Consulted: Photo Finisher Reason for Consult: Hospice Special Instructions: has spoken with Jimmy Collar Tacker for Hospice, [facility] Hospital Course: Mayuri is a 55-year-old female presenting to the ED for evaluation of abdominal pain and probable constipation. Patient reports that she has not eaten in the last 4 days. Patient has a history of ovarian cancer that is widely metastasized with multiple tumors in the abdomen. The patient reports that they discontinued the chemotherapy in August as it was not improving her situation. She is currently awaiting talks for hospice care. She has had increasing difficulty with appetite, abdominal pain, eating, and moving her bowels over the last couple of weeks but especially over the last couple of days. Her last bowel movement was 4 days ago and was a small amount of stool after taking Dulcolax. Prior to that she had gone 2 weeks without a bowel movement. She has significant nausea and as a result is not eating. Her last time eating was 4 days ago and that was a few bites of food. She continues to lose a considerable amount of weight and strength. She had been on MiraLAX prior to the trial of Dulcolax and the MiraLAX reportedly did not help at all. Denies any fever or chills. Denies any shortness of breath or chest pain. She is rating her abdominal pain an 8-9 out of 10. She is on long-term opioids with methadone. She does report that her bowel movement several days ago was quite hard and hard to move. During hospital stay she was continued on methadone at 10 mg every 8 hours and Dilaudid 2 mg every 2 hours was added with good result and control of pain. Nausea was controlled with the use of a combination of her Zofran and lorazepam. We had several discussions concerning hospice care and end-of-life care and she is agreeing to hospice admission after discharge from the hospital. Activity will be as tolerated and she will resume her usual diet. - Patient Instructions Diet: Usual Diet as Tolerated Activity: As Tolerated Other/Special Instructions: Admit to hospice after discharge from the hospital - Discharge Plan *PRESCRIPTION DRUG MONITORING PROGRAM REVIEWED*: Not Applicable *COPY OF PRESCRIPTION DRUG MONITORING REPORT IN PATIENT KAYLEN: Not Applicable Prescriptions/Med Rec: LORazepam [Ativan ORAL Concentrate 1MG/0.5 ML U/D] 1 mg PO Q2H PRN #60 ml PRN Reason: Nausea/Anxiety HYDROmorphone [Dilaudid 1 MG/ML U/D] 2 mg PO Q2H PRN #120 ml PRN Reason: Pain Methadone 10 mg PO TID #90 tablet Ondansetron [Zofran ODT] 8 mg PO Q6H PRN #60 tab.dis PRN Reason: Nausea/Vomiting Home Medications: Home Meds Pantoprazole [ProTONIX] 40 mg PO DAILY 10/02/20 [History] Rivaroxaban [Xarelto] 1 tab PO DAILY 10/02/20 [History] HYDROmorphone [Dilaudid 1 MG/ML U/D] 2 mg PO Q2H PRN #120 ml 10/05/20 [Rx] LORazepam [Ativan ORAL Concentrate 1MG/0.5 ML U/D] 1 mg PO Q2H PRN #60 ml 10/05/20 [Rx] Methadone 10 mg PO TID #90 tablet 10/05/20 [Rx] Ondansetron [Zofran ODT] 8 mg PO Q6H PRN #60 tab.dis 10/05/20 [Rx] Referrals: Sandor Marquez MD [Primary Care Provider] - - Discharge Summary/Plan Comment DC Time >30 min.: No - Patient Data Vitals - Most Recent: Last Vital Signs Temp 97.0 F 10/05/20 07:00 Pulse 100 10/05/20 07:00 Resp 18 10/05/20 07:00 BP 106/76 10/05/20 07:00 Pulse Ox 93 L 10/05/20 07:00 Weight - Most Recent: 102 lb I&O - Last 24 hours: Intake & Output 10/04/20 10/05/20 10/05/20 22:59 06:59 14:59 Intake Total 240 480 120 Balance 240 480 120 Med Orders - Current: Current Medications Acetaminophen (Acetaminophen 325 Mg Tab) 650 mg PO Q4H PRN PRN Reason: Fever Albuterol (Albuterol 0.083% 2.5 Mg/3 Ml Neb Soln) 2.5 mg NEB Q4H PRN PRN Reason: Shortness Of Breath/wheezing Hydromorphone HCl (Hydromorphone Oral Concentrate 1 Mg/Ml Cont U/D) 2 mg PO Q2H PRN PRN Reason: Pain Last Admin: 10/04/20 17:43 Dose: 2 mg Documented by: Lorazepam (Lorazepam Oral Concentrate 1mg/0.5ml U/D) 1 mg PO Q2H PRN PRN Reason: Nausea/Anxiety Methadone HCl (Methadone 10 Mg Tab) 10 mg PO TID [facility] Last Admin: 10/05/20 08:37 Dose: 10 mg Documented by: Ondansetron HCl (Ondansetron 4 Mg/2 Ml Sdv) 4 mg IV Q4H PRN PRN Reason: Nausea/Vomiting Ondansetron HCl (Ondansetron 4 Mg Tab.Dis) 8 mg PO Q6H PRN PRN Reason: Nausea/Vomiting Last Admin: 10/04/20 15:29 Dose: 8 mg Documented by: Rivaroxaban (Rivaroxaban 10 Mg Tab) 20 mg PO DAILY [facility] Last Admin: 10/05/20 08:38 Dose: 20 mg Documented by: Sodium Chloride (Sodium Chloride 0.9% 10 Ml Syringe) 10 ml FLUSH ONETIME PRN PRN Reason: PER RADIOLOGY PROTOCOL Last Admin: 10/03/20 00:30 Dose: 10 ml Documented by: Discontinued Medications Clonazepam (Clonazepam 0.5 Mg Tab) 2 mg PO BEDTIME [facility] Last Admin: 10/03/20 20:11 Dose: Not Given Documented by: Hydromorphone HCl (Hydromorphone 1 Mg/Ml Syringe) 2 mg IVPUSH ONETIME ONE Stop: 10/03/20 01:26 Last Admin: 10/03/20 01:56 Dose: 2 mg Documented by: Hydromorphone HCl (Hydromorphone 1 Mg/Ml Syringe) 1 mg IVPUSH Q2H PRN PRN Reason: Abdominal Pain Last Admin: 10/03/20 08:04 Dose: 1 mg Documented by: Sodium Chloride (Normal Saline) 1,000 mls @ 999 mls/hr IV .BOLUS ONE Stop: 10/02/20 23:54 Last Admin: 10/02/20 23:35 Dose: 999 mls/hr Documented by: Sodium Chloride (Normal Saline) 70 mls @ 3 mls/sec IV ONETIME ONE Stop: 10/03/20 00:17 Last Admin: 10/03/20 00:30 Dose: 3 mls/sec Documented by: Acetaminophen 1,000 mg/ Premix 100 mls @ 400 mls/hr IV Q6H PRN PRN Reason: Pain Stop: 10/04/20 02:07 Sodium Chloride (Normal Saline) 1,000 mls @ 100 mls/hr IV ASDIRECTED [facility] Iopamidol (Iopamidol 612 Mg/Ml 100 Ml Bottle) 72 ml IV . DIRECTED PRN PRN Reason: RADIOLOGY EXAM Last Admin: 10/03/20 00:30 Dose: 72 ml Documented by: Lorazepam (Lorazepam 2 Mg/Ml Sdv) 1 mg IVPUSH ONETIME ONE Stop: 10/03/20 01:26 Last Admin: 10/03/20 01:51 Dose: 1 mg Documented by: Lorazepam (Lorazepam 2 Mg/Ml Sdv) 1 mg IV Q2H PRN PRN Reason: Anxiety - Exam General: Reports: Sedated, Lethargic Lungs: Reports: Clear to Auscultation, Normal Respiratory Effort Cardiovascular: Reports: Regular Rate, Regular Rhythm, No Murmurs GI/Abdominal Exam: Soft, No Organomegaly, Tender. No: Distended, Guarding, Rigid, Rebound
== END 2020-10-05 10:39 | disposition hospice, home (50) | DRG 948 ==
LOC: JP.ED 21:50 → JP.MS 10-03 01:37
PROVIDERS: ADMIT Internal Medicine; ATTEND Internal Medicine
DX: G89.3 Neoplasm related pain (acute) (chronic) (principal); C78.6 Secondary malignant neoplasm of retroperitoneum and peritoneum; I27.82 Chronic pulmonary embolism; C79.60 Secondary malignant neoplasm of unspecified ovary; C78.7 Secondary malignant neoplasm of liver and intrahepatic bile duct; C77.9 Secondary and unspecified malignant neoplasm of lymph node, unspecified; C79.2 Secondary malignant neoplasm of skin; C78.89 Secondary malignant neoplasm of other digestive organs; Z66 Do not resuscitate; Z51.5 Encounter for palliative care; H54.7 Unspecified visual loss; R10.84 Generalized abdominal pain; M19.90 Unspecified osteoarthritis, unspecified site; F32.9 Major depressive disorder, single episode, unspecified; F43.20 Adjustment disorder, unspecified; E53.8 Deficiency of other specified B group vitamins; D50.9 Iron deficiency anemia, unspecified; Z96.651 Presence of right artificial knee joint; Z96.642 Presence of left artificial hip joint; Z90.89 Acquired absence of other organs; Z90.49 Acquired absence of other specified parts of digestive tract; Z79.899 Other long term (current) drug therapy; Z88.5 Allergy status to narcotic agent; Z87.440 Personal history of urinary (tract) infections; Z90.710 Acquired absence of both cervix and uterus; Z98.84 Bariatric surgery status
CPT/HCPCS: 36415; 74019; 74019-26; 74177; 80048; 80053; 85025; 99284; 99285-25; A9270-GY; J1170; J2060; J7030; Q9967